=== PATIENT | female | born 1945 | race Caucasian/White ===

== ENCOUNTER 2017-08-04 06:45 | Inpatient (IN) ==
[2017-08-04] MEDS ORDERED: 0.9 % Sodium Chloride 1,000 ML IVC ONE (07:07)
--- NOTE | 2017-08-04 07:24 | Emergency Department Note ---
Disposition Clinical Impression: Paroxysmal a-fib, Chest pain, rule out acute myocardial infarction, Pneumonia Disposition: Admitted As Inpatient Condition: Good Arrhythmia/Palpitations HPI - General Chief Complaint: ED Arrhythmia/Palpitations Stated Complaint: irregular heart beat Time Seen by Provider: 08/04/17 07:07 Source: patient, family Mode of arrival: ambulatory Limitations: no limitations Nursing Notes Reviewed: Yes Vital Signs Reviewed: Yes - History of Present Illness HPI Narrative: Patient presents to the ED with the chief complaint of an irregular heart rate. Patient does have a history of paroxysmal atrial fibrillation. States that the last time she had it was several years ago when she was diagnosed with Graves' disease. States that she takes atenolol daily but has not been in A. fib for some time. She states that she felt fine yesterday but when she woke up this morning she could feel her heart beating funny. She states she does not really feel wants beating fast, but the discomfort in her chest is from the palpitations. She does describe a fullness in her chest but denies any pain per se. She denies any shortness of breath, headache, fever, chills, abdominal pain, vomiting or diarrhea. She does have some intermittent nausea as well as a nonproductive cough. Denies any numbness or tingling in her extremities. No trouble speaking or ataxia. - Related Data Home Medications Medication Instructions Recorded Confirmed Atenolol [Tenormin] 12.5 mg PO DAILY 08/04/17 08/04/17 Estrogens, Conjugated [Premarin 1 appl VG QWEEK 08/04/17 08/04/17 Cream] Famotidine [Heartburn Prevention] 20 mg PO HS 08/04/17 08/04/17 Folic Acid 1 mg PO DAILY 08/04/17 08/04/17 GlipiZIDE [Glipizide ER] 10 mg PO DAILY 08/04/17 08/04/17 Levothyroxine Sodium 150 mcg PO DAILY 08/04/17 08/04/17 [Levothyroxine Sodium] OxyCODONE Immed Rel [Roxicodone 5 5 mg PO QID PRN 08/04/17 08/04/17 MG] diazePAM [Valium] 5 mg PO BID 08/04/17 08/04/17 metFORMIN [Glucophage] 1,000 mg PO QAM 08/04/17 08/04/17 metFORMIN [Glucophage] 500 mg PO QPM 08/04/17 08/04/17 Allergies Allergy/AdvReac Type Severity Reaction Status Date / Time amitriptyline Allergy Seizure Verified 08/04/17 11:55 gluten Allergy See Verified 02/07/16 22:19 Comments Amoxicillin [From Amoxil] AdvReac Nausea Verified 08/04/17 11:55 All systems ED: reviewed and negative except as stated. Constitutional: Denies: fever Cardiovascular: Reports: as per HPI, palpitations Respiratory: Reports: cough Gastrointestinal: Reports: nausea. Denies: vomiting Past Medical History - Past Medical History Attestation: Yes The following information was validated with the patient. Source: patient Medical history: Reports: hypertension, thyroid disease, other Psychiatric history: Reports: anxiety - Social History Smoking Status: Never smoker Smokeless Tobacco Status: No Alcohol use: Reports: none Drug use: Reports: none Physical Exam - General Limitations: no limitations General appearance: alert, in no apparent distress, anxious - Head Head exam: atraumatic, normocephalic, normal inspection - Eye Eye exam: Present: normal appearance, PERRL, other (Exophthalmos) - ENT ENT exam: normal oropharynx, mucous membranes dry - Neck Neck exam: Present: normal inspection, full ROM, trachea midline - Chest Chest inspection: Present: normal inspection, symmetric chest wall rise - Respiratory Respiratory exam: Present: normal lung sounds bilaterally - Cardiovascular Cardiovascular exam: Present: tachycardia, irregular rhythm, other (Radial pulses symmetric and strong bilaterally, irregular) - Abdominal Exam Abdominal exam: Present: soft, Non-Tender. Absent: tenderness, distention, guarding, rebound, rigidity - Extremities Exam Extremities exam: Present: normal inspection, full ROM, normal capillary refill. Absent: tenderness, pedal edema - Neurological Exam Neurological exam: Present: alert, oriented X3 - Psychiatric Psychiatric exam: Present: normal affect, normal mood - Skin Skin exam: Present: warm, dry, intact, normal color Course Course Narrative: 72-year-old female presenting with A. fib with RVR. History of paroxysmal A. fib. Woke up with it this morning. No real chest pain but states she does feel some fullness. History of Graves' disease. We will check labs, TSH, T3, T4. Last echocardiogram was reviewed by myself and performed earlier this year with a good ejection fraction. We will go ahead and bolus of Cardizem and started drip. Patient will be admitted to the hospital. Vital Signs Temperature 98.1 F 08/04/17 06:46 Pulse Rate 111 08/04/17 06:46 Respiratory Rate 20 08/04/17 06:46 Blood Pressure 179/88 08/04/17 06:46 O2 Sat by Pulse Oximetry 95 08/04/17 06:46 Temperature 98.1 F 08/04/17 06:46 Pulse Rate 66 08/04/17 10:30 Respiratory Rate 18 08/04/17 12:03 Blood Pressure 119/78 08/04/17 12:03 O2 Sat by Pulse Oximetry 95 08/04/17 10:30 Oxygen Delivery Oxygen Delivery Nasal Cannula Arrhythmia/Palpitations - Medical Records Medical records reviewed: Yes I reviewed the patient's medical records. - Lab Data Lab results reviewed: Yes I reviewed the patient's lab results. Result diagrams: 08/04/17 07:11 08/04/17 07:11 Lab Results 08/04/17 08/04/17 08/04/17 Range/Units 07:11 07:11 07:11 WBC 6.0 (4.3-11.1) K/mcL RBC 4.37 (3.82-4.97) M/mcL Hgb 12.4 (11.5-15.4) g/dL Hct 38.5 (35.3-44.9) % MCV 88.1 (83.0-100.0) fL MCH 28.4 (28.0-33.3) pg MCHC 32.2 (31.6-35.5) g/dL RDW 14.1 (11.5-14.5) % Plt Count 191 (140-400) K/mcL MPV 10.9 (9.4-12.4) fL Immature Gran % 0.2 (0-4) % Seg Neutrophils % 56.9 % Lymphocytes % 32.4 % Monocytes % 6.8 % Eosinophils % 3.2 % Basophils % 0.5 % Neutrophils # 3.4 (1.6-8.9) K/mcL Lymphocytes # 1.9 (0.6-4.6) K/mcL Monocytes # 0.4 (0.0-1.3) K/mcL Eosinophils # 0.2 (0.0-0.6) K/mcL Basophils # 0.0 (0.0-0.2) K/mcL PT 10.5 (9.4-12.1) Seconds INR 1.0 APTT 38.6 H (26.0-36.0) Seconds Sodium 142 (136-145) mEq/L Potassium 4.1 (3.5-4.5) mEq/L Chloride 105 (98-109) mEq/L Carbon Dioxide 26 (19-29) mEq/L BUN 16 (7-20) mg/dL Creatinine 0.91 (0.57-1.11) mg/dL Est GFR ( Amer) > 60 (> 60) Est GFR (Non-Af Amer) > 60 (> 60) BUN/Creatinine Ratio 18 (6-26) Glucose 111 H (70-99) mg/dL Calculated Osmolality 296 (280-300) Calcium 9.8 (8.6-10.8) mg/dL Magnesium 2.1 (1.6-2.6) mg/dL Troponin I (0-0.03) ng/mL Urine Color (Yellow) Urine Clarity (Clear) Urine pH (5.0-8.0) pH Units Ur Specific Fenton (1.010-1.025) Urine Protein (Neg-Trace) mg/dL Urine Glucose (UA) (Normal) mg/dL Urine Ketones (Negative) mg/dL Urine Blood (Negative) Urine Nitrite (Negative) Urine Bilirubin (Negative) Urine Urobilinogen (Normal) mg/dL Ur Leukocyte Esterase (Negative) Ur Culture Indicated? (NO) 08/04/17 08/04/17 Range/Units 07:11 09:27 WBC (4.3-11.1) K/mcL RBC (3.82-4.97) M/mcL Hgb (11.5-15.4) g/dL Hct (35.3-44.9) % MCV (83.0-100.0) fL MCH (28.0-33.3) pg MCHC (31.6-35.5) g/dL RDW (11.5-14.5) % Plt Count (140-400) K/mcL MPV (9.4-12.4) fL Immature Gran % (0-4) % Seg Neutrophils % % Lymphocytes % % Monocytes % % Eosinophils % % Basophils % % Neutrophils # (1.6-8.9) K/mcL Lymphocytes # (0.6-4.6) K/mcL Monocytes # (0.0-1.3) K/mcL Eosinophils # (0.0-0.6) K/mcL Basophils # (0.0-0.2) K/mcL PT (9.4-12.1) Seconds INR APTT (26.0-36.0) Seconds Sodium (136-145) mEq/L Potassium (3.5-4.5) mEq/L Chloride (98-109) mEq/L Carbon Dioxide (19-29) mEq/L BUN (7-20) mg/dL Creatinine (0.57-1.11) mg/dL Est GFR ( Amer) (> 60) Est GFR (Non-Af Amer) (> 60) BUN/Creatinine Ratio (6-26) Glucose (70-99) mg/dL Calculated Osmolality (280-300) Calcium (8.6-10.8) mg/dL Magnesium (1.6-2.6) mg/dL Troponin I 0.03 (0-0.03) ng/mL Urine Color Yellow (Yellow) Urine Clarity Clear (Clear) Urine pH 7.0 (5.0-8.0) pH Units Ur Specific Fenton 1.007 L (1.010-1.025) Urine Protein Negative (Neg-Trace) mg/dL Urine Glucose (UA) Normal (Normal) mg/dL Urine Ketones Negative (Negative) mg/dL Urine Blood Negative (Negative) Urine Nitrite Negative (Negative) Urine Bilirubin Negative (Negative) Urine Urobilinogen Normal (Normal) mg/dL Ur Leukocyte Esterase Negative (Negative) Ur Culture Indicated? NO (NO) - Radiology Data Radiology results reviewed: Yes I reviewed the patient's radiology results. - EKG Data EKG attestation: Yes I reviewed and interpreted this EKG. EKG results narrative: A. fib with RVR, rate 120, QRS 114, QTC 384, left axis deviation, left anterior fascicular block with LVH Repeat EKG shows sinus rhythm with sinus arrhythmia, rate 76, LA interval 180, QRS 114, QTC 417, left axis deviation, left anterior fascicular block with LVH, no acute ischemic changes from previous, other than conversion to sinus rhythm Attestation Statement - Attestation Attestation: I, Romeo Kaur, examined this patient and my medical decision-making was reviewed with the [employer]/PA/Advanced Practice Nurse/Resident Physician. I agree with the documented findings, disposition and treatment plan as described except to the extent set forth below. 72-year-old female presents emergency Department with concerns of palpitations and chest discomfort. Patient states she had a nonproductive cough for the past few days but was otherwise feeling well last night prior to going to bed. This morning she woke with a feeling of palpitations, rapid heart rate and some chest pressure in the center of her chest that did not radiate. Patient denies associated diaphoresis, vomiting. No recent trauma. No recent changes in her medications. She does have a history of Graves' disease and now takes levothyroxine. Her initial evaluation the patient was started on diltiazem and spontaneously converted to a normal sinus rhythm. Chest pain resolved. Chest x -ray shows possible infiltrate in the left lower and middle lungs. Initial troponin negative. Patient feels comfortable to be admitted to the hospital for further care and evaluation of her acute onset chest pain and paroxysmal atrial fibrillation.
[2017-08-04 07:29] LABS: Basophils % 0.5 %; Eosinophils # 0.2 K/mcL (0.0-0.6); Eosinophils % 3.2 %; Hematocrit 38.5 % (35.3-44.9); Hemoglobin 12.4 g/dL (11.5-15.4); Immature Granulocytes % 0.2 % (0-4); Lymphocytes # 1.9 K/mcL (0.6-4.6); Lymphocytes % 32.4 %; Mean Corpuscular HGB Conc 32.2 g/dL (31.6-35.5); Mean Corpuscular Hemoglobin 28.4 pg (28.0-33.3); Mean Corpuscular Volume 88.1 fL (83.0-100.0); Mean Platelet Volume 10.9 fL (9.4-12.4); Monocytes # 0.4 K/mcL (0.0-1.3); Monocytes % 6.8 %; Neutrophils # 3.4 K/mcL (1.6-8.9); Platelet Count 191 K/mcL (140-400); Prothrombin Time 10.5 Seconds (9.4-12.1); Red Blood Count 4.37 M/mcL (3.82-4.97); Red Cell Distribution Width 14.1 % (11.5-14.5); Segmented Neutrophils % 56.9 %
[2017-08-04 07:32] LABS: Activated Partial Thrombo Time 38.6 Seconds (26.0-36.0)
[2017-08-04 09:38] LABS: Bilirubin,Urine Negative (Negative); Blood,Urine Negative (Negative); Clarity,Urine Clear (Clear); Color,Urine Yellow (Yellow); Glucose,Urine (UA) Normal (Normal); Ketones,Urine Negative (Negative); Leukocyte Esterase,Urine Negative (Negative); Nitrite,Urine Negative (Negative); Protein,Urine Negative (Neg-Trace); Specific Gravity,Urine 1.007 (1.010-1.025); Urobilinogen,Urine Normal (Normal)
[2017-08-04] MEDS ORDERED: Azithromycin 500 MG in D5% in Water 250 ML IVPB ONE (10:41)
[2017-08-04 11:03] LABS: BUN/Creatinine Ratio 18 (6-26); Blood Urea Nitrogen 16 mg/dL (7-20); Calcium 9.8 mg/dL (8.6-10.8); Carbon Dioxide 26 mEq/L (19-29); Chloride 105 mEq/L (98-109); Glucose 111 mg/dL (70-99); Magnesium 2.1 mg/dL (1.6-2.6); Osmolality,Calculated 296 (280-300); Potassium 4.1 mEq/L (3.5-4.5); Sodium 142 mEq/L (136-145); eGFR For African Americans > 60 (> 60); eGFR For Non-African Americans > 60 (> 60)
[2017-08-04] MEDS ORDERED: Acetaminophen 325 MG TABLET PO PRN (12:42)
[2017-08-04] MEDS ORDERED: Naloxone 0.4 MG/ML INJ IVP PRN (12:42)
[2017-08-04] MEDS ORDERED: *HR* OxyCODONE Immed Rel 5 MG TABLET PO PRN (12:44)
[2017-08-04 13:50] LABS: Thyroid Stimulating Hormone 1.769 mcIU/mL (0.350-4.840); Triiodothyronine (T3) Free 2.04 pg/mL (1.71-3.71)
[2017-08-04] MEDS ORDERED: D5% in Water 1,000 ML IVC PRN (13:55)
[2017-08-04] MEDS ORDERED: Dextrose Gel 15 GM PO PRN ×2 (13:55)
[2017-08-04] MEDS ORDERED: *HR* Dextrose 50 % in Water (Syg) 50 ML SYRINGE IVP PRN (13:55)
--- NOTE | 2017-08-04 15:03 | Internal Med History&Physical ---
<Axel Barcenas R - Last Filed: 08/04/17 16:23> Date of Encounter: 08/04/17 Internal Medicine - H&P: HPI History of present illness: Ms. Espinosa is a 72 year old female Internal Medicine - H&P: Meds Atenolol [Tenormin] 12.5 mg PO DAILY 08/04/17 [History] Estrogens, Conjugated [Premarin Cream] 1 appl VG QWEEK 08/04/17 [History] Famotidine [Heartburn Prevention] 20 mg PO HS 08/04/17 [History] Folic Acid 1 mg PO DAILY 08/04/17 [History] GlipiZIDE [Glipizide ER] 10 mg PO DAILY 08/04/17 [History] Levothyroxine Sodium [Levothyroxine Sodium] 150 mcg PO DAILY 08/04/17 [History] OxyCODONE Immed Rel [Roxicodone 5 MG] 5 mg PO QID PRN 08/04/17 [History] diazePAM [Valium] 5 mg PO BID 08/04/17 [History] metFORMIN [Glucophage] 1,000 mg PO QAM 08/04/17 [History] metFORMIN [Glucophage] 500 mg PO QPM 08/04/17 [History] 3 Allergy/AdvReac Type Severity Reaction Status Date / Time amitriptyline Allergy Seizure Verified 08/04/17 11:55 gluten Allergy See Verified 02/07/16 22:19 Comments Amoxicillin [From Amoxil] AdvReac Nausea Verified 08/04/17 11:55 All Systems PM: A 10-system review of systems was performed and is negative for pertinent findings except as documented above in the HPI. - Constitutional Vitals: Temp Pulse Resp BP Pulse Ox 98.6 F 65 16 136/76 95 08/04/17 15:55 08/04/17 15:55 08/04/17 15:55 08/04/17 15:55 08/04/17 15:55 Internal Med - H&P Results - Labs CBC & Chem 7: 08/04/17 07:11 08/04/17 07:11 - Attending Attestation I persnally interviewed and examined this pt. I discussed the case with ABBEY Hurt and agree with her findings, assessment and plan.. Concern for CAP. Prior to ordering a stress test, would appreciate cardiology input. Pt has Afib (PA Fib) and should be on anticoagulation, will further discuss this with pt. <Linda Hurt - Last Filed: 08/05/17 01:06> Date of Encounter: 08/05/17 Time of Encounter: 13:00 Assessment and Plan (1) Atrial fibrillation with RVR Current visit: Yes Status: Acute Patient presented with A. fib RVR rate of 140. She was given 1 dose of Cardizem IV which did flip her back to sinus rhythm. It appears patient does have some pneumonia which may have triggered A. fib. She does have a history of Graves' disease TSH was within range. We will continue with atenolol for now 2 we will consult cardiology 3 cardiac monitoring 4 patient is not an anticoagulation did give her aspirin which we will continue charts ask is 4 due to age female gender history of hypertension and diabetes this will need to be addressed per day team (2) Chest pain, rule out acute myocardial infarction Current visit: Yes Status: Acute 1 patient has an onset of chest discomfort today she was found to be in A. fib RVR and suspect this was related to her chest pain. We will continue to trend her troponins first troponin was 0. Continuous cardiac monitoring We will continue with aspirin and beta hailey will check lipid profile She had a recent stress test which was negative for ischemia We will consult cardiology (3) Pneumonia Current visit: Yes Status: Acute Patient has been experiencing nonproductive cough and she has had a sick exposure. No leukocytosis chest x-ray indicative of pneumonia. We will continue with Rocephin and azithromycin blood cultures have been obtained Bronchodilators as needed Mucinex Qualifiers: Pneumonia type: due to unspecified organism Laterality: bilateral Lung location: unspecified part of lung Qualified Code(s): J18.9 - Pneumonia, unspecified organism (4) Diabetes mellitus Current visit: No Status: Chronic We will hold metformin for now Accu-Cheks before meals at bedtime with sliding scale insulin Diabetic diet Qualifiers: Diabetes mellitus type: type 2 Diabetes mellitus complication status: without complication Diabetes mellitus terminologist insulin use: without residential use Qualified Code(s): E11.9 - Type 2 diabetes mellitus without complications (5) Hypertension Current visit: No Status: Chronic Presently controlled we will continue with atenolol 2 low sodium diet Qualifiers: Hypertension type: essential hypertension Qualified Code(s): I10 - Essential (primary) hypertension (6) Graves disease Current visit: Yes Status: Acute 1 presently TSH is within normal range we will continue with her Synthroid (7) DVT prophylaxis Current visit: Yes Status: Acute Lovenox subcutaneous Internal Medicine - H&P: HPI Chief complaint: CP Admitted From: Emergency Dept Plans for Post Hospital Care: Home History of present illness: Ms. Espinosa is a 72 year old female past medical history of diabetes celiac disease hypertension pernicious anemia anxiety depression Graves' disease paroxysmal atrial fibrillation. Patient explains she was diagnosed with Graves ' disease several years ago and had a thyroid storm as well as atrial fibrillation. She was placed on atenolol and has not had episode of atrial fibrillation for very long time. However today she is when she woke up she could feel that her heart was beating funny. She also felt like chest discomfort related to her palpitations however she was unable to describe the chest discomfort. She denies any shortness of breath or headache fevers chills.pain vomiting or diarrhea. She has been experiencing a nonproductive cough and she has had sick contacts. She presented to the ER with the above complaints according to ER records EKG revealed atrial fibrillation with RVR rate of 120s. She was given IV Cardizem was to convert her back to sinus rhythm. Lab work was obtained and troponin was 0.03. Urine was negative there was no leukocytosis chemistry was unremarkable. Chest x-ray with some opacifications mid and lower lungs bilaterally. She was given IV antibiotics and was admitted for further workup and evaluation. Presently patient denies any chest discomfort. She does not appear to be in respiratory distress. She does have some crackles in her bases bilaterally heart sounds are regular S1 and S2 with no rubs clicks gallops murmurs noted abdomen soft and nontender there is no pedal edema she has sinus rhythm on the monitor at this time. I reviewed his case with Dr. Barcenas who agrees with plan. Past Med Surg Social Fam HX - Past Medical History Medical history: diabetes, fibromyalgia, hypertension, thyroid disease, other Psychiatric history: anxiety - Social History Smoking Status: Never smoker Smokeless Tobacco Status: No Alcohol use: none Drug use: none - Family History Father Living Status: Age at : 75 Cause of : Colon cancer Mother Living Status: Cause of : Ovarian and colon cancer All Systems PM: A 10-system review of systems was performed and is negative for pertinent findings except as documented above in the HPI. - Constitutional Constitutional: no chills, no fever(s), no night sweats - EENT Eyes: no change in vision, no discharge, no pain, no photophobia Nose, mouth and throat: no dysphagia, no nasal discharge, no neck pain, no sore throat - Cardiovascular Cardiovascular ROS IM: chest pain, palpitations - Respiratory Respiratory: cough, no dyspnea, no wheezing, no excessive phlegm production - Gastrointestinal Gastrointestinal: no abdominal pain, no diarrhea, no hematemesis, no hematochezia, no melena, no nausea, no vomiting - Genitourinary Genitourinary: no change in urinary stream, no dysuria, no flank pain, no hematuria - Musculoskeletal Musculoskeletal ROS IM: no numbness, no tingling - Integumentary Integumentary IM: no rash, no unusual bruising - Neurological Neurological ROS: no confusion, no convulsions, no focal weakness, no numbness, no tingling, no tremor(s) - Hematologic/Lymphatic Hematologic/Lymphatic: no easy bruising - Constitutional Vitals: Temp Pulse Resp BP Pulse Ox 97.9 F 68 17 128/75 90 08/04/17 14:18 08/04/17 14:18 08/04/17 14:18 08/04/17 14:18 08/04/17 14:18 General appearance: Present: A&O X 3, answers questions appropriately - Head Head exam: Present: atraumatic, normocephalic - Eye Eye exam: Present: PERRL, conjuntiva pink, sclera anicteric Pupils: Present: PERRL - Neck Neck exam general surgery: Present: supple, trachea midline. Absent: lymphadenopathy - Respiratory Respiratory exam: Present: CTAB, rales. Absent: accessory muscle use, rhonchi, wheezes - Cardiovascular Cardiovascular exam: Present: RRR, +S1, +S2. Absent: diastolic murmur, gallop, rubs, systolic murmur - GI/Abdominal GI/Abdominal exam: Present: normal bowel sounds, soft, no peritoneal signs. Absent: distended, tenderness - Extremities Exam Extremities exam: Present: warm, radial pulses palpable and symmetrical. Absent : calf tenderness, cyanotic, pedal edema - Neurological Exam Neurological exam: Present: CN II-XII intact, oriented X3, no focal deficits. Absent: pronater drift, facial droop, speech deficit - Skin Skin exam: Present: dry, intact Internal Med - H&P Results - Labs CBC & Chem 7: 08/04/17 07:11 08/04/17 07:11 Labs: Cardiac Enzymes 08/04/17 Range/Units 13:02 Troponin I 0.03 (0-0.03) ng/mL - EKG Data EKG shows normal: sinus rhythm - EKG Data Prior EKG available for review: yes When compared to previous EKG: there are significant changes EKG comments: 08/05/17 00:51 Patient was in atrial fibrillation with rapid ventricular response on presentation she is presently in sinus rhythm with no ST-T wave abnormalities noted - Diagnostic Studies Other Images Additional comments: Chest X-Ray 08/04/17 07:07 IMPRESSION: Question of minimal patchy opacification within the left mid and bilateral lower lung. D/ / Francisco J Blackwell MD / Francisco J Blackwell MD Interpreting Provider: Francisco J Blackwell MD
[2017-08-04] MEDS: Insulin LISPRO 300 UNITS/3 ML VIAL SQ SCH ×2 (17:07→22:03)
[2017-08-04] MEDS: Aspirin 325 MG TABLET PO SCH (17:08)
[2017-08-04] MEDS: Famotidine 20 MG TABLET PO SCH (22:02)
[2017-08-04] MEDS: diazePAM 5 MG TABLET PO SCH (22:03)
[2017-08-05] MEDS ORDERED: Albuterol 2.5 MG/3 ML NEBULIZER IH PRN (01:00)
[2017-08-05 01:49] LABS: Basophils % 0.5 %; Eosinophils # 0.2 K/mcL (0.0-0.6); Eosinophils % 3.5 %; Hematocrit 30.4 % (35.3-44.9); Immature Granulocytes % 0.2 % (0-4); Immature Platelets 3.1 % (1.1-6.1); Lymphocytes # 1.7 K/mcL (0.6-4.6); Lymphocytes % 27.3 %; Mean Corpuscular HGB Conc 31.3 g/dL (31.6-35.5); Mean Corpuscular Hemoglobin 27.6 pg (28.0-33.3); Mean Corpuscular Volume 88.4 fL (83.0-100.0); Mean Platelet Volume 10.4 fL (9.4-12.4); Monocytes # 0.5 K/mcL (0.0-1.3); Monocytes % 8.9 %; Neutrophils # 3.6 K/mcL (1.6-8.9); Platelet Count 168 K/mcL (140-400); Red Blood Count 3.44 M/mcL (3.82-4.97); Red Cell Distribution Width 14.2 % (11.5-14.5); Segmented Neutrophils % 59.6 %
[2017-08-05 01:50] LABS: Hemoglobin 9.5 g/dL (11.5-15.4)
[2017-08-05 02:02] LABS: BUN/Creatinine Ratio 18 (6-26); Blood Urea Nitrogen 16 mg/dL (7-20); Calcium 8.9 mg/dL (8.6-10.8); Carbon Dioxide 26 mEq/L (19-29); Chloride 106 mEq/L (98-109); Chol/HDL Ratio 4.5 (0-4.9); Cholesterol 163 mg/dL (< 200); Glucose 145 mg/dL (70-99); HDL Cholesterol 36 mg/dL (40-59); LDL Cholesterol,Calculated 94 mg/dL (0-99); Magnesium 1.6 mg/dL (1.6-2.6); Osmolality,Calculated 288 (280-300); Sodium 137 mEq/L (136-145); Triglycerides 166 mg/dL (< 150); eGFR For African Americans > 60 (> 60); eGFR For Non-African Americans > 60 (> 60)
[2017-08-05] MEDS ORDERED: *HR* Enoxaparin 40 MG/0.4 ML SYRINGE SQ SCH (06:00)
[2017-08-05] MEDS: Insulin LISPRO 300 UNITS/3 ML VIAL SQ SCH ×4 (07:48→22:00)
[2017-08-05] MEDS ORDERED: *HR* OxyCODONE Immed Rel 5 MG TABLET PO PRN (07:58)
[2017-08-05] MEDS: Folic Acid 1 MG TABLET PO SCH (08:18)
[2017-08-05] MEDS: Aspirin 325 MG TABLET PO SCH (08:18)
[2017-08-05] MEDS: diazePAM 5 MG TABLET PO SCH ×2 (08:18→20:33)
[2017-08-05] MEDS ORDERED: Azithromycin 500 MG in D5% in Water 250 ML IVPB SCH (09:00)
--- NOTE | 2017-08-05 09:26 | Internal Med Progress Note ---
<Linh Moser - Last Filed: 08/05/17 14:34> Date of Encounter: 08/05/17 Time of Encounter: 09:22 - Assessment and plan (1) Atrial fibrillation with RVR Current Visit: Yes Status: Acute Assessment and plan: Ms. Espinosa is a 72 year old female with PMHx of Graves with thyroid storm, DM, HTN , and parosxymal Afib. Hx of Graves s/p atenolol, no changes in medication. Endorses emotional stress overnight prior to episode This AM, no chest pain, no SOB, vitals WNL EKG ED: atrial fibrillation with RVR rate of 120, converted to NSR with IV Cardizem. Troponin neg x 2. Minimum [id number] score - 4 (Age, F, DM, Hx HTN) HAS-BLED Score: 3 (HTN, Age > 65, Meds use predisposing bleeding) Of note: Hgb drop (12.4 - 9.5) Plan: Cardio on consult, appreciate recs Continue On tele Echo w/ limited view pending D/c Lovenox Titrating aspirin down 325 mg to 81 mg On SCDs Fecal hemeoccult (2) Drop in hemoglobin Current Visit: Yes Status: Acute Assessment and plan: 08/04: Hgb :12.4 08/05 : Hgb 9.5 Plan: See above Will repeat H/H STAT Fecal Hemeoccult pending Relevant hx: No colonoscopy in ~10 years Enoxaparin held, Continue SCDs (3) Chest pain, rule out acute myocardial infarction Current Visit: Yes Status: Resolved Assessment and plan: Troponin neg x2 (4) Graves disease Current Visit: Yes Status: Acute Assessment and plan: Thyroid labs WNL Per cardio, increase atenolol to 25 mg PO daily (5) Paroxysmal a-fib Current Visit: Yes Status: Acute Assessment and plan: Hx of Afib 2/2 to thyrotoxicosis TSH, T3, T4 WNL Continue home meds (6) Pneumonia Current Visit: Yes Status: Acute Assessment and plan: Hx of nonproductive cough in ED When possible, will de-escalate abx No history of hospitalization or association w/ healthcare in last 30 days PLAN: Pneumococcal vaccine (PPSV23) prior to d/c, if vaccine hx requires Qualifiers: Pneumonia type: due to unspecified organism Laterality: bilateral Lung location: unspecified part of lung Qualified Code(s): J18.9 - Pneumonia, unspecified organism (7) Diabetes mellitus Current Visit: No Status: Chronic Assessment and plan: Continue management Qualifiers: Diabetes mellitus type: type 2 Diabetes mellitus complication status: without complication Diabetes mellitus long-term insulin use: unspecified terminal worker insulin use status Qualified Code(s): E11.9 - Type 2 diabetes mellitus without complications (8) Hypertension Current Visit: No Status: Chronic Assessment and plan: Continue home meds Qualifiers: Hypertension type: essential hypertension Qualified Code(s): I10 - Essential (primary) hypertension (9) ASVD (arteriosclerotic vascular disease) Current Visit: Yes Status: Acute Assessment and plan: 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, 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 [employer] Age=72, F, Race= , Labs: Cholesterol =163/ HDL =36/ LDL =94, SBP = 148 Personal HX: DM, HTN, NON-smoker, Not on statin, Not on aspirin 10-year ASCVD Risk = 41.6% Will consider high intensity statin, given DM and > 7.5% 10-year ASCVD risk (10) DVT prophylaxis Current Visit: Yes Status: Acute Assessment and plan: On SCDs Currently holding OAC pending H/H & f/u tests for evaluation of Hgb drop (11) Pain aggravated by activities of daily living Current Visit: Yes Status: Chronic Assessment and plan: Pt endorses chronic pain issues in knee Continue home meds and encourage conservative pain management to patient when possible - Subjective Interval history: No acute events overnight. Denies chest pain today, SOB. She states that uncomfortable sensation felt at time of presentation has subsided, although does endorse feel intermittent palpitation this morning. Eating well. Pt is DM, we discussed meal planning for blood glucose control - Constitutional Vitals: Temp Pulse Resp BP Pulse Ox 98.4 F 77 18 148/80 92 08/05/17 07:12 08/05/17 07:12 08/05/17 07:12 08/05/17 07:12 08/05/17 08:35 General appearance: Present: cooperative, A&O X 3, pleasant, no acute distress, answers questions appropriately - Head Head exam: Present: atraumatic, normocephalic - Respiratory Respiratory exam: Present: CTAB. Absent: accessory muscle use, rales, rhonchi, wheezes - Cardiovascular Cardiovascular exam: Present: irregular rhythm, +S1, +S2. Absent: tachycardia - GI/Abdominal GI/Abdominal exam: Present: normal bowel sounds, soft, no peritoneal signs. Absent: distended, tenderness - Expanded Lower Extremities Exam Lower Leg exam: Absent: erythema (tender on palpation on anterior mei (2/2 to chronic condition per pt)), tenderness Internal Medicine: Result - Labs CBC & Chem 7: 08/05/17 01:42 08/05/17 01:42 Labs: Short CBC 08/05/17 Range/Units 01:42 WBC 6.1 (4.3-11.1) K/mcL Hgb 9.5 L D (11.5-15.4) g/dL Hct 30.4 L (35.3-44.9) % Plt Count 168 (140-400) K/mcL Neutrophils # 3.6 (1.6-8.9) K/mcL BMP 08/05/17 01:42 Sodium 137 Potassium 4.0 Chloride 106 Carbon Dioxide 26 BUN 16 Creatinine 0.90 Glucose 145 H Calcium 8.9 Cardiac Enzymes 08/04/17 08/05/17 Range/Units 19:39 01:42 Troponin I 0.01 0.02 (0-0.03) ng/mL - ABG Interpretation ABG results: PT/INR, D-dimer PT 10.5 Seconds (9.4-12.1) 08/04/17 07:11 - Diagnostic Studies Other Images Additional comments: Chest X-Ray 08/04/17 07:07 IMPRESSION: Question of minimal patchy opacification within the left mid and bilateral lower lung. D/ / Francisco J Blackwell MD / Francisco J Blackwell MD Interpreting Provider: Francisco J Blackwell MD pending Consult Discharge Plan - Plan Referrals: Carlo sEnrique Sanchez Jr, MD [Primary Care Provider] - 08/12/17 12:00 pm (web request ) <Estrada Stevens P - Last Filed: 08/05/17 18:22> Date of Encounter: 08/05/17 - Constitutional Vitals: Temp Pulse Resp BP Pulse Ox 98.9 F 89 18 158/89 90 08/05/17 16:25 08/05/17 16:25 08/05/17 16:25 08/05/17 16:25 08/05/17 16:25 Internal Medicine: Result - Labs CBC & Chem 7: 08/05/17 14:44 08/05/17 01:42 Labs: Short CBC 08/05/17 08/05/17 Range/Units 01:42 14:44 WBC 6.1 (4.3-11.1) K/mcL Hgb 9.5 L D 10.9 L (11.5-15.4) g/dL Hct 30.4 L 33.9 L (35.3-44.9) % Plt Count 168 (140-400) K/mcL Neutrophils # 3.6 (1.6-8.9) K/mcL BMP 08/05/17 01:42 Sodium 137 Potassium 4.0 Chloride 106 Carbon Dioxide 26 BUN 16 Creatinine 0.90 Glucose 145 H Calcium 8.9 Cardiac Enzymes 08/04/17 08/05/17 Range/Units 19:39 01:42 Troponin I 0.01 0.02 (0-0.03) ng/mL - ABG Interpretation ABG results: PT/INR, D-dimer PT 10.5 Seconds (9.4-12.1) 08/04/17 07:11 - Attending Attestation I examined this patient and my medical decision-making was reviewed with the Resident Physician. I agree with the documented findings, disposition and treatment plan as described except to the extent set forth below. Admitted with atrial fibrillation with rapid ventricular rate. Etiology of rapid ventricular rate is likely acute loss of blood. Likely source gastrointestinal tract. Plan: Hold aspirin IV PPI every 12 hourly We will get opinion from gastroenterology for possible endoscopy.
--- NOTE | 2017-08-05 10:13 | Cardiology Consult Note ---
<Rachel Mendoza - Last Filed: 08/05/17 12:29> Date of Encounter: 08/05/17 Time of Encounter: 09:30 Assessment and Plan (1) Atrial fibrillation with RVR Current Visit: Yes Status: Acute -Cardiology consulted for atrial fibrillation with RVR and chest discomfort. -H/o afib reported by pt, but no documented diagnosis. -Pt currently in NSR with HR 92 at time of exam this morning, denies current chest discomfort and palpitations. Appears well. -Electrolytes WNL -Troponins negative x4 -TSH, T4, and T3 were WNL, making a thyroid derangement a less likely precipitant. -EKG: normal sinus rhythm with sinus arrhythmia, Lt axis deviation, Lt anterior fasicular block, no new ischemic changes -Echocardiogram done February 2017 showed LVEF 60-65% and stress echo January 2017 shows appropriate increase of LVEF with increased stress. -[id number] score of 4 (female, age, HTN, diabetes) puts her at "moderate- high" risk of stroke, therefore she's an anticoagulation candidate. This is complicated by acute drop in Hgb of 12.4 to 9.5 over one day. Recommend repeating Hgb and further work up to explain acute drop. If Hgb truly low, no anticoagulation for time being. If repeat Hgb is normal, start aspirin 81mg PO once daily. -HR and BP will tolerate an increased dose of atenolol to Atenolol 25mg PO daily. -Based on studies and lab results mentioned above, acute ischemic cause for afib is less likely. Pt's afib may be related to pneumonia or may have been precipitated by her acute Hgb drop. Discussion w patient/family: The assessment and plan as outlined above was discussed with the patient and/or family members who expressed understanding and agreement. All questions were answered. Thank you for involving us in the care of your patient. Please call with any questions. History of Present Illness Consult date: 08/05/17 Consult reason: atrial fibrillation with RVR Chief complaint: irregular heartbeat History of present illness: Ms. Espinosa is a 72 year old female with PMH of atrial fibrillation (reported by pt ), IDDM, HTN, hypothyroid, sleep apnea, and h/o Graves disease & thyroid storm. Presented to ED yesterday c/o irregular heartbeat and chest discomfort described as "fullness" and was found to be in afib with RVR. Event occurred yesterday morning when getting out of bed, says she woke up "aware something wasn't right" and felt irregular heartbeat. She denies sensation of heart racing , chest pain, no arm/neck/jaw pain, diaphoresis, nausea, vomiting, lightheadedness at time of event. Rhythm converted to sinus after she bolus and drip of cardizem. Admitted for IV antibiotic treatment of suspected CAP and for further workup of acute onset chest discomfort. Pt is on atenolol and doesn' t take anticoagulation agent for her afib. Chest xray shows questionable patchy opacifications Lt mid and b/l lower lobes. Past Med Surg Social Fam HX - Past Medical History Medical history: diabetes, fibromyalgia, hypertension, thyroid disease, other Psychiatric history: anxiety - Social History Smoking Status: Never smoker Smokeless Tobacco Status: No Alcohol use: none Drug use: none - Family History Father Living Status: Age at : 75 Cause of : Colon cancer Mother Living Status: Cause of : Ovarian and colon cancer Medications and Allergies Atenolol [Tenormin] 12.5 mg PO DAILY 08/04/17 [History] Estrogens, Conjugated [Premarin Cream] 1 appl VG QWEEK 08/04/17 [History] Famotidine [Heartburn Prevention] 20 mg PO HS 08/04/17 [History] Folic Acid 1 mg PO DAILY 08/04/17 [History] GlipiZIDE [Glipizide ER] 10 mg PO DAILY 08/04/17 [History] Levothyroxine Sodium [Levothyroxine Sodium] 150 mcg PO DAILY 08/04/17 [History] OxyCODONE Immed Rel [Roxicodone 5 MG] 5 mg PO QID PRN 08/04/17 [History] diazePAM [Valium] 5 mg PO BID 08/04/17 [History] metFORMIN [Glucophage] 1,000 mg PO QAM 08/04/17 [History] metFORMIN [Glucophage] 500 mg PO QPM 08/04/17 [History] 3 Allergy/AdvReac Type Severity Reaction Status Date / Time amitriptyline Allergy Seizure Verified 08/04/17 11:55 gluten Allergy See Verified 02/07/16 22:19 Comments Amoxicillin [From Amoxil] AdvReac Nausea Verified 08/04/17 11:55 All Systems Review: A 10-system review of systems was performed and is negative for pertinent findings except as documented above in the HPI. - Cardiovascular Cardiovascular: as per HPI, palpitations, rapid heart rate, no chest pain at rest, no chest pain with exertion, no diaphoresis, no radiating jaw, neck or arm pain, no lightheadedness - Respiratory Respiratory: cough (non productive) - Gastrointestinal Gastrointestinal: no nausea - Neurological Neurological: no dizziness Physical Examination Vital Signs, Last 4 Hours Temp Pulse Resp BP Pulse Ox 08/05/17 08:35 92 08/05/17 07:12 98.4 F 77 18 148/80 92 General: Conversant, No Apparent Distress HEENT: Atraumatic, Mucus Membranes Moist Cardiac: Reg Rate and Rhythm, Normal S1 and S2, No Murmur Lungs: Normal Breath Sounds, No Wheeze, Rales, Rhonchi, Other (normal respiratory effort) Neuro: Alert and responsive, No focal deficits noted Skin: No rashes noted on visualized skin Musculoskeletal: No Chest Wall Tenderness Extremities: No Clubbing, No Cyanosis, No Edema, Normal Pulses (dorsalis pedis and posterior tibialis pulses equal, palpable b/l) Results 08/05/17 01:42 08/05/17 01:42 Lab Results 08/04/17 08/05/17 08/05/17 19:39 01:42 01:42 WBC 6.1 Hgb 9.5 L D Hct 30.4 L Plt Count 168 Sodium Potassium Chloride Carbon Dioxide BUN Creatinine Glucose Calcium Magnesium Troponin I 0.01 0.02 08/05/17 01:42 WBC Hgb Hct Plt Count Sodium 137 Potassium 4.0 Chloride 106 Carbon Dioxide 26 BUN 16 Creatinine 0.90 Glucose 145 H Calcium 8.9 Magnesium 1.6 Troponin I - Imaging and Cardiology Chest Xray: report reviewed Consult Discharge Plan - Plan Referrals: Carlos Enrique Sanchez Jr, MD [Primary Care Provider] - 08/12/17 12:00 pm (web request ) <Kaylyn Sarmiento - Last Filed: 08/05/17 12:57> Date of Encounter: 08/05/17 Assessment and Plan Discussion w patient/family: The assessment and plan as outlined above was discussed with the patient and/or family members who expressed understanding and agreement. All questions were answered. Thank you for involving us in the care of your patient. Please call with any questions. History of Present Illness History of present illness: Ms. Espinosa is a 72 year old female All Systems Review: A 10-system review of systems was performed and is negative for pertinent findings except as documented above in the HPI. Physical Examination Vital Signs, Last 4 Hours Temp Pulse Resp BP Pulse Ox 08/05/17 11:07 97.9 F 78 18 149/79 97 Results 08/05/17 01:42 08/05/17 01:42 Lab Results 08/04/17 08/05/17 08/05/17 19:39 01:42 01:42 WBC 6.1 Hgb 9.5 L D Hct 30.4 L Plt Count 168 Sodium Potassium Chloride Carbon Dioxide BUN Creatinine Glucose Calcium Magnesium Troponin I 0.01 0.02 08/05/17 01:42 WBC Hgb Hct Plt Count Sodium 137 Potassium 4.0 Chloride 106 Carbon Dioxide 26 BUN 16 Creatinine 0.90 Glucose 145 H Calcium 8.9 Magnesium 1.6 Troponin I - Attending Attestation I examined this patient and my medical decision-making was reviewed with the Resident Physician. I agree with the documented findings, disposition and treatment plan as described except to the extent set forth below. IMPRESSION: Ms. Espinosa presented with AFIB RVR associated with chest pressure and some pleuritic chest pain, probably precipitated by possible pneumonia. However, Hgb dropped from 12.4 to 9.5 over one day. Primary team is working up patient for GIB. TSH, electrolytes unremarkable. Had a detailed conversation with the patient and her family member. She thinks she was told she had AFIB several years ago and maybe even was offered an ablation but she is not sure of the details. She does deny having an ablation. We discussed treatment options. PLAN: 1. Workup for GIB per primary team given acute drop in Hgb 2. ASA 81 mg daily for now; can consider full anticoagulation (CHADSVASC 4) as an outpatient (with input from Hematology given history of pernicious anemia). 3. Recommend increasing atenolol to a full tablet but patient is hesitant to do so but has agreed to 12.5mg BID; continue telemetry 4. Consider limited echo for re-evaluation of LV function 5. Consider outpatient sleep evaluation to rule out MAIRA; per patient, desaturates at nighttime
[2017-08-05 14:54] LABS: Hematocrit 33.9 % (35.3-44.9); Hemoglobin 10.9 g/dL (11.5-15.4)
[2017-08-05] MEDS: Famotidine 20 MG TABLET PO SCH (20:34)
--- NOTE | 2017-08-06 05:49 | Electrocardiograph Report ---
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
[2017-08-06] MEDS ORDERED: Pantoprazole 40 MG VIAL IVP SCH (06:00)
[2017-08-06 07:24] LABS: Basophils % 0.6 %; Eosinophils # 0.2 K/mcL (0.0-0.6); Eosinophils % 3.4 %; Hematocrit 32.3 % (35.3-44.9); Immature Granulocytes % 0.3 % (0-4); Lymphocytes # 1.6 K/mcL (0.6-4.6); Lymphocytes % 23.7 %; Mean Corpuscular Hemoglobin 27.2 pg (28.0-33.3); Mean Corpuscular Volume 87.8 fL (83.0-100.0); Monocytes # 0.5 K/mcL (0.0-1.3); Monocytes % 7.9 %; Neutrophils # 4.4 K/mcL (1.6-8.9); Platelet Count 163 K/mcL (140-400); Red Blood Count 3.68 M/mcL (3.82-4.97); Segmented Neutrophils % 64.1 %
[2017-08-06 07:35] LABS: BUN/Creatinine Ratio 20 (6-26); Blood Urea Nitrogen 18 mg/dL (7-20); Calcium 8.6 mg/dL (8.6-10.8); Carbon Dioxide 24 mEq/L (19-29); Chloride 106 mEq/L (98-109); Glucose 134 mg/dL (70-99); Osmolality,Calculated 292 (280-300); Sodium 139 mEq/L (136-145); eGFR For African Americans > 60 (> 60); eGFR For Non-African Americans > 60 (> 60)
--- NOTE | 2017-08-06 08:51 | Cardiology Progress Note ---
<Rachel Mendoza - Last Filed: 08/06/17 11:46> Date of Encounter: 08/06/17 Time of Encounter: 09:35 Assessment and Plan (1) Atrial fibrillation with RVR Current Visit: Yes Status: Acute -Limited echocardiogram done 08/05/17: -Normal LV systolic function with LVEF 55%, mild asymmetric LV basal septal hypertrophy, normal RV size and function, moderately dilated left atrium, atypical septal motion consistent with BBB. -Electrolytes WNL and Hgb/Hct of 10/32.3 today. Recommendations: -Continue ASA 81mg PO daily. -Continue Atenolol dosing as 12.5mg PO BID per pt's request. -Follow up with cardiology as outpatient in 4 weeks (after she's been seen by GI ) to discuss plan for full anticoagulation, which is recommended due to her CHADS-VASc score of 4. Discussion w patient/family: The assessment and plan as outlined above was discussed with the patient and/or family members who expressed understanding and agreement. All questions were answered. Thank you for involving us in the care of your patient. Please call with any questions. Subjective Principal diagnosis: atrial fibrillation with RVR Interval history: Pt seen and examined this morning. Heart rate on telemetry was 72-84 bpm, regular rhythm. No events overnight. Pt states she feels fine, is more relaxed, and slept well last night. She denies chest pain or "fullness". She admits to " a few missed beats," however she wasn't greatly concerned about this. She denies the additional associated symptoms: fever/chills, cough, dyspnea, pleuritic pain, nausea/vomiting, abdominal pain, lower extremity swelling. Objective Vital Signs, Last 4 Hours Temp Pulse Resp BP Pulse Ox 08/06/17 06:49 98.2 F 73 15 148/85 92 08/06/17 05:01 98.2 F 67 17 123/77 94 General: Conversant, No Apparent Distress HEENT: Mucus Membranes Moist Cardiac: Reg Rate and Rhythm, Normal S1 and S2, No Murmur Lungs: Normal Breath Sounds, No Wheeze, Rales, Rhonchi, Other (no cough) Neuro: Alert and responsive, No focal deficits noted Extremities: No Clubbing, No Cyanosis, No Edema, Normal Pulses (DP and PT pulses palpable b/l) Results 08/06/17 06:35 08/06/17 06:35 Lab Results 08/05/17 08/06/17 08/06/17 14:44 06:35 06:35 WBC 6.8 Hgb 10.9 L 10.0 L Hct 33.9 L 32.3 L Plt Count 163 Sodium 139 Potassium 4.0 Chloride 106 Carbon Dioxide 24 BUN 18 Creatinine 0.90 Glucose 134 H Calcium 8.6 - Imaging and Cardiology Echo: report reviewed (08/05/17 echo shows reduced LVEF when compared to February 2017 echo) Consult Discharge Plan - Plan Additional Instructions: -Please follow up with your primary care provider Dr. Alvarez. We recommend the pneumococcal vaccine, if appropriate with your vaccine history as an outpatient. Please discuss this with your primary care provider -Please follow up with Dr. Sarmiento within three days as an outpatient to discuss your heart condition and need for anticoagulation. -Please follow up with the Gastroenterology service for your colonoscopy -Please continue to take atenolol 12.5 mg PO twice a day, as recommended by Dr. Sarmienot -Please continue your aspirin 81 mg PO daily , as recommended by Dr. Hutchinson -Please continue to take azithromycin 500 mg PO for the next 5 days -Please return promptly to the emergency room in case of new acute chest pain, palpitations, shortness of breath or new acute onset of symptoms. Referrals: Carlos Enrique Sanchez Jr, MD [Primary Care Provider] - 08/12/17 12:00 pm (web request ) Prescriptions: Aspirin Enteric Coated [Aspirin EC] 81 mg PO DAILY #30 Atenolol [Tenormin] 12.5 mg PO BID #60 tab Azithromycin [Zithromax] 500 mg PO Q24H #5 tab <Kaylyn Sarmiento - Last Filed: 08/06/17 12:18> Date of Encounter: 08/06/17 Assessment and Plan Discussion w patient/family: I examined this patient and my medical decision-making was reviewed with the Resident Physician. I agree with the documented findings, disposition and treatment plan. Ms. Espinosa is feeling in her usual state of health today without new complaints. She admits to a few "missed beats" but nothing of concern to the patient. She had no concerning findings on telemetry overnight. At her request we will continue the dosing structure of atenolol at 12.5mg BID. Ideally, would recommend full anticoagulation (CHADSVASC 4) but she plans to have GI workup for drop in Hgb as an outpatient and possibly will be undergoing cholecystectomy. For now, she will remain on low dose aspirin. Recommend cardiology follow up as outpatient for further evaluation and management. We will sign off. Please call with questions. Objective Vital Signs, Last 4 Hours Temp Pulse Resp BP Pulse Ox 08/06/17 11:34 97.5 F L 74 18 165/93 90 Results 08/06/17 06:35 08/06/17 06:35 Lab Results 08/05/17 08/06/17 08/06/17 14:44 06:35 06:35 WBC 6.8 Hgb 10.9 L 10.0 L Hct 33.9 L 32.3 L Plt Count 163 Sodium 139 Potassium 4.0 Chloride 106 Carbon Dioxide 24 BUN 18 Creatinine 0.90 Glucose 134 H Calcium 8.6
[2017-08-06] MEDS ORDERED: Azithromycin 250 MG TABLET PO SCH (09:00)
[2017-08-06] MEDS ORDERED: Aspirin 81 MG TAB.CHEW PO SCH (09:00)
[2017-08-06] MEDS: diazePAM 5 MG TABLET PO SCH (09:55)
[2017-08-06] MEDS: Folic Acid 1 MG TABLET PO SCH (09:55)
[2017-08-06] MEDS: Insulin LISPRO 300 UNITS/3 ML VIAL SQ SCH ×2 (09:58→12:24)
--- NOTE | 2017-08-06 11:21 | Discharge Summary ---
<ShantiLinh - Last Filed: 08/06/17 17:04> Date of Encounter: 08/06/17 Time of Encounter: 11:15 - Discharge Diagnosis (1) Atrial fibrillation with RVR Priority: Primary Status: Acute (2) Drop in hemoglobin Priority: Primary Status: Resolved (3) Chest pain, rule out acute myocardial infarction Priority: Primary Status: Resolved (4) Graves disease Priority: Secondary Status: Chronic (5) Paroxysmal a-fib Priority: Primary Status: Acute (6) Pneumonia Priority: Primary Status: Acute Qualifiers: Pneumonia type: due to unspecified organism Laterality: bilateral Lung location: unspecified part of lung Qualified Code(s): J18.9 - Pneumonia, unspecified organism (7) Diabetes mellitus Priority: Secondary Status: Chronic Qualifiers: Diabetes mellitus type: type 2 Diabetes mellitus complication status: without complication Diabetes mellitus 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: unspecified 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 status Qualified Code(s): E11.9 - Type 2 diabetes mellitus without complications (8) Hypertension Priority: Secondary Status: Chronic Qualifiers: Hypertension type: essential hypertension Qualified Code(s): I10 - Essential (primary) hypertension (9) ASVD (arteriosclerotic vascular disease) Priority: Secondary Status: Chronic (10) DVT prophylaxis Priority: Secondary Status: Acute (11) Pain aggravated by activities of daily living Priority: Primary Status: Chronic - Discharge Medications Prescriptions: Aspirin Enteric Coated [Aspirin EC] 81 mg PO DAILY #30 Atenolol [Tenormin] 12.5 mg PO BID #60 tab Azithromycin [Zithromax] 500 mg PO Q24H #5 tab Home Medications: Estrogens, Conjugated [Premarin Cream] 1 appl VG QWEEK 08/04/17 [History] Famotidine [Heartburn Prevention] 20 mg PO HS 08/04/17 [History] Folic Acid 1 mg PO DAILY 08/04/17 [History] GlipiZIDE [Glipizide ER] 10 mg PO DAILY 08/04/17 [History] Levothyroxine Sodium 150 mcg PO DAILY 08/04/17 [History] OxyCODONE Immed Rel [Roxicodone 5 MG] 5 mg PO QID PRN 08/04/17 [History] diazePAM [Valium] 5 mg PO BID 08/04/17 [History] metFORMIN [Glucophage] 1,000 mg PO QAM 08/04/17 [History] metFORMIN [Glucophage] 500 mg PO QPM 08/04/17 [History] Aspirin Enteric Coated [Aspirin EC] 81 mg PO DAILY #30 08/06/17 [Rx] Atenolol [Tenormin] 12.5 mg PO BID #60 tab 08/06/17 [Rx] Azithromycin [Zithromax] 500 mg PO Q24H #5 tab 08/06/17 [Rx] Allergies/Adverse Reactions: 3 Allergy/AdvReac Type Severity Reaction Status Date / Time amitriptyline Allergy Seizure Verified 08/04/17 11:55 gluten Allergy See Verified 02/07/16 22:19 Comments Amoxicillin [From Amoxil] AdvReac Nausea Verified 08/04/17 11:55 Procedures/tests Complete & Pending: Procedures Performed prior 72 hours Category Date Time Status EV limited echocardiogram Routine Y 08/05/17 12:29 Completed Chest X-Ray 08/04/17 07:07 IMPRESSION: Question of minimal patchy opacification within the left mid and bilateral lower lung. D/ / Francisco J Blackwell MD / Francisco J Blackwell MD Interpreting Provider: Francisco J Blackwell MD Echocardiogram Limited Views 08/05/17 12:29 Impressions: Normal LV systolic function, LVEF 55%. Mild asymmetric LV basal septal hypertrophy. Normal right ventricular size and function. Moderately dilated left atrium. Valvular function was not assessed on this limited study. Left Ventricular Wall Motion: Rest Echo Findings All wall segments showed normal motion. Findings: Study Quality * Suboptimal due to some off axis views. ECG Findings * Normal sinus rhythm. Left Ventricle * Normal LV systolic function, LVEF 55%. * Normal LV chamber size. * Mild asymmetric LV basal septal hypertrophy. * Atypical septal motion consistent with bundle branch block. Right Ventricle * Normal right ventricular size and function. Left Atrium * Moderately dilated left atrium. Right Atrium * Normal right atrial size. Aorta * Normally sized aortic root. Pericardium * There is a trivial pericardial effusion present. IVC * Normal IVC dimensions and inspiratory collapse. Date of admission: 08/04/17 15:11 Primary care physician: Carlos Enrique Sanchez Jr, MD Consults: 08/05/17 00:38 Consult to Cardiology [CONS] Routine Comment: Consulting Provider: Cardiology Leticia Reason for Consult: CP Time Notified: 00:38 Call Completed: No Discharging clinician: Linh Moser Anticipated date of discharge: 08/06/17 - Patient Status Disposition: Home, Self-Care Condition: Good Functional capacity at discharge: uses cane/walker Overall status at discharge: patient is progressing back to baseline - Discharge Instructions Follow Up With: Carlos Enrique Sanchez Jr, MD [Primary Care Provider] - 08/12/17 12:00 pm (web request ) Additional Instructions: -Please follow up with your primary care provider Dr. Sanchez. We recommend the pneumococcal vaccine, if appropriate with your vaccine history as an outpatient. Please discuss this with your primary care provider -Please follow up with Dr. Sarmiento within three days as an outpatient to discuss your heart condition and need for anticoagulation. -Please follow up with the Gastroenterology service for your colonoscopy -Please continue to take atenolol 12.5 mg PO twice a day, as recommended by Dr. Sarmiento -Please continue your aspirin 81 mg PO daily , as recommended by Dr. Hutchinson -Please continue to take azithromycin 500 mg PO for the next 5 days -Please return promptly to the emergency room in case of new acute chest pain, palpitations, shortness of breath or new acute onset of symptoms. - Diet and Activity Activity: ambulate only with your walker, increase activity as tolerated Diet: diabetic diet, low salt diet Interval History: No acute events overnight. No SOB. Did not report unexplained bleeding overnight. No abdominal pain. Hospital course: Ms. Espinosa is a 72 year old female with a past medical history of Graves with thyroid storm, DM, HTN, and parosxymal Afib. Her history of Graves is s/p atenolol, and she had no changes in medication. She did endorse emotional stress overnight prior to episode. EKG in ED demonstrated atrial fibrillation with RVR rate of 120, which converted to NSR with IV Cardizem. The patient's troponin neg x 2. The patient's thyroid labs were within normal limits. The patient's CXR additionally demonstrated findings concerning for pneumonia, for which patient was treated with IV antibiotics and de-escalated to PO with clinical improvement. Evaluation of risk factors demonstrated a minimum [id number] score - 4 (Age, F, DM, Hx HTN) and HAS-BLED Score: 3 (HTN, Age > 65, Meds use predisposing bleeding) while inpatient. Cardiology was on consult and patient was continued on telemetry. Echo w/ limited view pending revealed normal LV systolic function with LVEF 55%, mild asymmetric LV basal septal hypertrophy, normal RV size and function, moderately dilated left atrium, atypical septal motion consistent with BBB. She exhibited an approximate 3 Hgb drop (12.4 - 9.5) and H/H were followed until Hgb and Hct markers were trended until stable. Given the risk of possible bleed, patient advised to continue ASA 81mg PO daily. She will follow up with cardiology as outpatient in 4 weeks ( after she's been seen by GI for colonoscopy for outpatient follow-up and patient 's follow-up per USPTF guidelines) The patient's atenolol was adjusted to 12.5 mg PO BID to discuss plan for full anticoagulation, which is recommended due to her CHADS-VASc score of 4. - Time Spent with Patient Total time spent providing and/or coordinating discharge services: - Constitutional Vitals: Temp Pulse Resp BP Pulse Ox 98.2 F 73 15 148/85 92 08/06/17 06:49 08/06/17 06:49 08/06/17 06:49 08/06/17 06:49 08/06/17 06:49 General appearance: Present: cooperative, A&O X 3, pleasant, no acute distress, answers questions appropriately - Head Head exam: Present: atraumatic, normocephalic - Respiratory Respiratory exam: Present: CTAB. Absent: accessory muscle use, rales, rhonchi, wheezes - Cardiovascular Cardiovascular exam: Present: +S1, +S2. Absent: diastolic murmur, gallop, rubs , systolic murmur - GI/Abdominal GI/Abdominal exam: Present: normal bowel sounds, soft, no peritoneal signs. Absent: distended, tenderness - Expanded Lower Extremities Exam Knee exam: Absent: ecchymosis, erythema, swelling, tenderness <Estrada Stevens P - Last Filed: 08/06/17 18:31> Date of Encounter: 08/06/17 Procedures/tests Complete & Pending: Procedures Performed prior 72 hours Category Date Time Status EV limited echocardiogram Routine Y 08/05/17 12:29 Completed Date of admission: 08/04/17 15:11 Primary care physician: Carlos Enrique Sanchez Jr, MD Consults: 08/05/17 00:38 Consult to Cardiology [CONS] Routine Comment: Consulting Provider: Cardiology Leticia Reason for Consult: CP Time Notified: 00:38 Call Completed: No Hospital course: Ms. Espinosa is a 72 year old female - Time Spent with Patient Total time spent providing and/or coordinating discharge services: - Constitutional Vitals: Temp Pulse Resp BP Pulse Ox 97.5 F L 74 18 165/93 90 08/06/17 11:34 08/06/17 11:34 08/06/17 11:34 08/06/17 11:34 08/06/17 11:34 - Attending Attestation I examined this patient and my medical decision-making was reviewed with the Resident Physician. I agree with the documented findings, disposition and treatment plan as described except to the extent set forth below.
[2017-08-06 11:38] VITALS: BP 165/93
[2017-08-06] MEDS ORDERED: Aspirin Enteric Coated 81 MG Tablet PO SCH (11:45)
[2017-08-06] MEDS ORDERED: FLUARIX QUAD 2017-18 36MOS UP/PF 0.5 ML SYRINGE IM ONE (13:31)
--- NOTE | 2017-08-07 14:05 | Electrocardiograph Report ---
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
== END 2017-08-06 14:17 | disposition home or self-care (01) | DRG 308 ==
LOC: 2ANU 06:45 → EMEROO 06:45 → 2ANU 12:35
PROVIDERS: ADMIT Internal Medicine; ATTEND Internal Medicine

== ENCOUNTER 2018-08-24 08:16 | Inpatient (IN) ==
--- NOTE | 2018-08-24 08:28 | Emergency Department Note ---
Disposition Clinical Impression: Unstable angina pectoris Chest pain Qualifiers: Chest pain type: unspecified Qualified Code(s): R07.9 - Chest pain, unspecified Disposition: Admitted As Inpatient Condition: Fair Referrals: Carlos Enrique Sanchez Jr, MD [Primary Care Provider] - Time of Disposition: 09:22 Chest Pain HPI - General Chief Complaint: ED Chest Pain Stated Complaint: CP Time Seen by Provider: 08/24/18 08:20 Source: patient, EMS Mode of arrival: EMS Limitations: no limitations Vital Signs Reviewed: Yes Nursing Notes Reviewed: Yes - History of Present Illness HPI Narrative: I have re-performed and reviewed the history documented by the medical student, and I confirm its accuracy except as noted below 73-year-old female history of CAD s/p stent in May 2018 presents emergency department via EMS for chest pain. 30 minutes prior to arrival patient reports waking up with left-sided chest pain with radiation down the left arm with associated shortness of breath. Denies diaphoresis nausea or vomiting. Feels similar to her prior heart attack back in May 3 months ago. She took a baby aspirin today and was given 3 additional aspirin by squad. She also took a total of 3 nitro prior to squad arrival with minimal relief. She normally takes aspirin Plavix and eloquence which is for her atrial fibrillation. Denies any G.I. bleed symptoms. Denies any recent illness. She does state yesterday she felt slightly more weak that she typically does as they went out to eat at [employer]. Denies any other complaints. Pt complaint: chest pain Severity scale (1-10): 6 - Related Data Home Medications Medication Instructions Recorded Confirmed Apixaban [Eliquis] 5 mg PO BID 06/02/18 08/24/18 Cyanocobalamin (B-12) [Vitamin B12] 1,000 mcg IM QMONTH 06/02/18 08/24/18 Famotidine [Pepcid] 40 mg PO HS PRN 06/02/18 08/24/18 FluocinoNIDE 0.05% CRM [Lidex] 1 appl TP TID 06/02/18 08/24/18 Folic Acid 1 mg PO DAILY 06/02/18 08/24/18 GlipiZIDE [Glipizide ER] 10 mg PO DAILY 06/02/18 08/24/18 Levothyroxine Sodium 150 mcg PO DAILY 06/02/18 08/24/18 Metoprolol Succinate 25 mg PO BID 06/02/18 08/24/18 Oxycodone HCl 5 mg PO Q6H PRN 06/02/18 08/24/18 Triamterene/HCTZ 37.5/25mg 1 tab PO DAILY 06/02/18 08/24/18 [Dyazide] diazePAM [Valium] 5 mg PO BID PRN 06/02/18 08/24/18 metFORMIN [Glucophage] 500 mg PO TID 06/02/18 08/24/18 Lisinopril [Lisinopril] 2.5 mg PO DAILY 08/24/18 08/24/18 Rosuvastatin Calcium [Rosuvastatin 5 mg PO DAILY 08/24/18 08/24/18 Calcium] Previous Rx's Medication Instructions Recorded Aspirin 162 mg PO BID #60 tab.chew 06/06/18 Clopidogrel [Plavix] 75 mg PO DAILY #30 tablet 06/06/18 Nitroglycerin 0.4 mg SL Q5MIN PRN #15 tab.subl 06/06/18 Allergies Allergy/AdvReac Type Severity Reaction Status Date / Time amitriptyline AdvReac Seizure Verified 06/02/18 06:47 Amoxicillin [From Amoxil] AdvReac Nausea Verified 06/02/18 06:47 gluten AdvReac Abdominal Verified 06/02/18 06:47 Pain All systems ED: reviewed and negative except as stated. Review of Systems: As Per HPI Constitutional: Reports: weakness. Denies: fever, chills ENT ED: Denies: congestion Cardiovascular: Reports: chest pain. Denies: palpitations, syncope Respiratory: Denies: cough, dyspnea Gastrointestinal: Denies: abdominal pain, nausea, vomiting Genitourinary: Denies: dysuria Musculoskeletal: Denies: back pain Integumentary: Denies: abrasion Neurological: Denies: headache Chest Pain PMH - Past Medical History Medical history: Reports: atrial fibrillation, cancer, diabetes, fibromyalgia, GERD, hypertension, thyroid disease, other Surgical history: Reports: hysterectomy Psychiatric history: Reports: anxiety, depression - Social History Smoking Status: Never smoker Alcohol use: Reports: none Drug use: Reports: none Physical Exam - General Limitations: no limitations General appearance: alert, in distress (Appears uncomfortable, wearing sunglasses and keeping eyes closed) - Head Head exam: atraumatic, normocephalic, normal inspection - Eye Eye exam: Present: normal appearance, PERRL, EOMI - ENT ENT exam: normal exam, normal oropharynx, mucous membranes moist - Neck Neck exam: Present: normal inspection, full ROM, trachea midline - Chest Chest inspection: Present: normal inspection, symmetric chest wall rise. Absent : tenderness - Respiratory Respiratory exam: Present: normal lung sounds bilaterally. Absent: respiratory distress, wheezes - Cardiovascular Cardiovascular exam: Present: regular rate, normal rhythm, normal heart sounds - Expanded Cardiovascular Exam Peripheral pulses: 2+: radial (R), radial (L) - Abdominal Exam Abdominal exam: Present: soft, Non-Tender, normal bowel sounds. Absent: tenderness, distention, guarding, rebound, rigidity - Extremities Exam Extremities exam: Present: normal inspection, full ROM, normal capillary refill. Absent: tenderness, pedal edema, calf tenderness - Neurological Exam Neurological exam: Present: alert, oriented X3 - Psychiatric Psychiatric exam: Present: normal affect, anxious - Skin Skin exam: Present: warm, dry, intact, normal color. Absent: rash, cyanosis, diaphoresis Course Course Narrative: Patient presents with chest pain for the past 30 minutes after awakening. Recent prior heart catheterization with stent placement. Concerning for DC. Her initial EKG shows some changes in wave morphology compared to her prior EKG as well as the stress test that was recently performed 2 weeks ago. Will repeat EKG and initiate nitroglycerin drip. Will speak to the interventional cardiologists regarding possible evolving myocardial infarction. - Consultations Consultation #1: The repeat EKG was performed approximately 12 minutes after initial with some isolated ST elevation in lead 3 as well as T-wave inversions in the lateral leads. We compared this to her post-cath EKG performed 06/02 as well as a recent stress tests on 08/13 which shows different wave morphology with concerns for evolving myocardial infarction. Spoke with the cooler worker Dr. Osei who agrees this does not meet STEMI but will look at cath report. Recent stress tests performed 08/13 was indeterminate as patient was unable to get to target level. Time: 08:47 Consultation #2: Spoke with the cardiologists who was performing a heart catheterization at that time it will review the patient's chart. Informed that troponin was less than 0.03. No evolving ST changes on repeat EKGs. Time: 09:24 Consultation #3: Review for labs unremarkable. She has some anemia that slightly lower at 9 today. She denies any G.I. bleed symptoms. I spoke with a defense travel administrator again who recommends catheterization likely tomorrow but would prefer to trend troponins. She is on Eliquis for atrial fibrillation and will hold. Will also hold heparin drip at this time. The defense travel administrator will evaluate the patient. The 4th EKG showed some improvement of the ST elevation in 3. Her pain has improved with that nitroglycerin drip. At this time patient will be admitted. Spoke with on-call hospitalist jeremy Harrell to admit for ACS/CP. No further orders at this time Time: 10:28 Vital Signs Temperature 97.9 F 08/24/18 08:20 Pulse Rate 69 08/24/18 08:20 Respiratory Rate 18 08/24/18 08:20 Blood Pressure 136/81 08/24/18 08:20 O2 Sat by Pulse Oximetry 97 08/24/18 08:20 Temperature 97.9 F 08/24/18 08:20 Pulse Rate 74 08/24/18 10:40 Respiratory Rate 18 08/24/18 09:56 Blood Pressure 132/71 08/24/18 10:40 O2 Sat by Pulse Oximetry 99 08/24/18 10:40 Oxygen Delivery Oxygen Delivery Nasal Cannula Chest Pain - MDM Narrative Medical decision making narrative: Patient was discussed with my attending physician who agrees with ED management and final disposition. They independently evaluated the patient. Please refer to their attestation to this encounter for additional information. This note was generated by [employer] voice recognition software and as a result grammatical or spelling errors may occur using this program. - Medical Records Medical records reviewed: Yes I reviewed the patient's medical records. - Lab Data Lab results reviewed: Yes I reviewed the patient's lab results. Result diagrams: 08/24/18 08:41 08/24/18 08:41 Lab Results 08/24/18 08/24/18 Range/Units 08:41 08:41 WBC 5.5 (4.3-11.1) K/mcL RBC 3.27 L (3.82-4.97) M/mcL Hgb 9.2 L (11.5-15.4) g/dL Hct 29.2 L (35.3-44.9) % MCV 89.3 (83.0-100.0) fL MCH 28.1 (28.0-33.3) pg MCHC 31.5 L (31.6-35.5) g/dL RDW 14.0 (11.5-14.5) % Plt Count 154 (140-400) K/mcL MPV 10.7 (9.4-12.4) fL Immature Gran % 0.4 (0-4) % Seg Neutrophils % 71.3 % Lymphocytes % 17.0 % Monocytes % 7.6 % Eosinophils % 3.3 % Basophils % 0.4 % Neutrophils # 4.0 (1.6-8.9) K/mcL Lymphocytes # 0.9 (0.6-4.6) K/mcL Monocytes # 0.4 (0.0-1.3) K/mcL Eosinophils # 0.2 (0.0-0.6) K/mcL Basophils # 0.0 (0.0-0.2) K/mcL Sodium 137 (136-145) mEq/L Potassium 3.9 (3.5-5.1) mEq/L Chloride 105 (98-107) mEq/L Carbon Dioxide 23 (23-29) mEq/L BUN 23 (8-23) mg/dL Creatinine 1.17 (0.60-1.20) mg/dL Est GFR ( Amer) 55 L (> 60) Est GFR (Non-Af Amer) 45 L (> 60) BUN/Creatinine Ratio 20 (6-26) Glucose 156 H (70-105) mg/dL Calculated Osmolality 291 (280-300) Calcium 9.0 (8.6-10.3) mg/dL Troponin I < 0.03 (< 0.04) ng/mL - Radiology Data Radiology results reviewed: Yes I reviewed the patient's radiology results. Chest X-Ray 08/24/18 08:20 IMPRESSION: 1. Mild perihilar vascular prominence without overt congestive heart failure D/ / 08/24/2018 09:08:23 Kandace Patel MD / stephy Interpreting Provider: Kandace Patel MD - EKG Data EKG attestation: Yes I reviewed and interpreted this EKG. EKG results narrative: EKG performed 821 normal sinus rhythm 68 beats per minute, isolated ST elevation seen in lead III, there is T-wave inversions in the lateral leads. Concerning for ischemic changes, does not meet STEMI. Compared to prior EKG performed 06/02 which shows that these findings are new this was performed after her catheterization. Repeat EKG performed 833 as well as 908 does not show any dynamic changes or increase in ST elevation Heart Score - Score History: Highly Suspicious EKG: Significant ST-Depression Age: Greater than 65 Risk Factors: Equal/Greater than 3 risk factor or history of atherosclerotic disease Troponin: Less than normal limit HEART Score Total: 8
[2018-08-24] MEDS ORDERED: *HR* FentaNYL (PF) 100 MCG/2 ML VIAL IVP ONE (08:29)
[2018-08-24] MEDS ORDERED: 0.9 % Sodium Chloride 1,000 ML IVC SCH (08:30)
--- NOTE | 2018-08-24 08:30 | Emergency Department Note ---
Disposition Clinical Impression: Unstable angina pectoris, Chest pain Disposition: Admitted As Inpatient Condition: Fair General Adult HPI - General Chief complaint: ED Chest Pain Stated complaint: CP Time Seen by Provider: 08/24/18 08:20 Source: EMS Limitations: no limitations - History of Present Illness Pain Scale: 6 - Related Data Home Medications Medication Instructions Recorded Confirmed Apixaban [Eliquis] 5 mg PO BID 06/02/18 08/24/18 Cyanocobalamin (B-12) [Vitamin B12] 1,000 mcg IM QMONTH 06/02/18 08/24/18 Famotidine [Pepcid] 40 mg PO HS PRN 06/02/18 08/24/18 FluocinoNIDE 0.05% CRM [Lidex] 1 appl TP TID 06/02/18 08/24/18 Folic Acid 1 mg PO DAILY 06/02/18 08/24/18 GlipiZIDE [Glipizide ER] 10 mg PO DAILY 06/02/18 08/24/18 Levothyroxine Sodium 150 mcg PO DAILY 06/02/18 08/24/18 Metoprolol Succinate 25 mg PO BID 06/02/18 08/24/18 Oxycodone HCl 5 mg PO Q6H PRN 06/02/18 08/24/18 Triamterene/HCTZ 37.5/25mg 1 tab PO DAILY 06/02/18 08/24/18 [Dyazide] diazePAM [Valium] 5 mg PO BID PRN 06/02/18 08/24/18 metFORMIN [Glucophage] 500 mg PO TID 06/02/18 08/24/18 Lisinopril [Lisinopril] 2.5 mg PO DAILY 08/24/18 08/24/18 Rosuvastatin Calcium [Rosuvastatin 5 mg PO DAILY 08/24/18 08/24/18 Calcium] Previous Rx's Medication Instructions Recorded Aspirin 162 mg PO BID #60 tab.chew 06/06/18 Clopidogrel [Plavix] 75 mg PO DAILY #30 tablet 06/06/18 Nitroglycerin 0.4 mg SL Q5MIN PRN #15 tab.subl 06/06/18 Allergies Allergy/AdvReac Type Severity Reaction Status Date / Time amitriptyline AdvReac Seizure Verified 06/02/18 06:47 Amoxicillin [From Amoxil] AdvReac Nausea Verified 06/02/18 06:47 gluten AdvReac Abdominal Verified 06/02/18 06:47 Pain Past Medical History - Past Medical History Medical history: Reports: atrial fibrillation, cancer, diabetes, fibromyalgia, GERD, hypertension, thyroid disease, other Surgical history: Reports: hysterectomy Psychiatric history: Reports: anxiety, depression - Social History Smoking Status: Never smoker Smokeless Tobacco Status: No Alcohol use: Reports: none Drug use: Reports: none Physical Exam - General Limitations: no limitations General appearance: alert, in no apparent distress Course Vital Signs Temperature 97.9 F 08/24/18 08:20 Pulse Rate 69 08/24/18 08:20 Respiratory Rate 18 08/24/18 08:20 Blood Pressure 136/81 08/24/18 08:20 O2 Sat by Pulse Oximetry 97 08/24/18 08:20 Temperature 97.9 F 08/24/18 08:20 Pulse Rate 74 08/24/18 10:40 Respiratory Rate 18 08/24/18 09:56 Blood Pressure 132/71 08/24/18 10:40 O2 Sat by Pulse Oximetry 99 08/24/18 10:40 Oxygen Delivery Oxygen Delivery Nasal Cannula Medical Decision Making - Lab Data Result diagrams: 08/24/18 08:41 08/24/18 08:41 Lab Results 08/24/18 08/24/18 Range/Units 08:41 08:41 WBC 5.5 (4.3-11.1) K/mcL RBC 3.27 L (3.82-4.97) M/mcL Hgb 9.2 L (11.5-15.4) g/dL Hct 29.2 L (35.3-44.9) % MCV 89.3 (83.0-100.0) fL MCH 28.1 (28.0-33.3) pg MCHC 31.5 L (31.6-35.5) g/dL RDW 14.0 (11.5-14.5) % Plt Count 154 (140-400) K/mcL MPV 10.7 (9.4-12.4) fL Immature Gran % 0.4 (0-4) % Seg Neutrophils % 71.3 % Lymphocytes % 17.0 % Monocytes % 7.6 % Eosinophils % 3.3 % Basophils % 0.4 % Neutrophils # 4.0 (1.6-8.9) K/mcL Lymphocytes # 0.9 (0.6-4.6) K/mcL Monocytes # 0.4 (0.0-1.3) K/mcL Eosinophils # 0.2 (0.0-0.6) K/mcL Basophils # 0.0 (0.0-0.2) K/mcL Sodium 137 (136-145) mEq/L Potassium 3.9 (3.5-5.1) mEq/L Chloride 105 (98-107) mEq/L Carbon Dioxide 23 (23-29) mEq/L BUN 23 (8-23) mg/dL Creatinine 1.17 (0.60-1.20) mg/dL Est GFR ( Amer) 55 L (> 60) Est GFR (Non-Af Amer) 45 L (> 60) BUN/Creatinine Ratio 20 (6-26) Glucose 156 H (70-105) mg/dL Calculated Osmolality 291 (280-300) Calcium 9.0 (8.6-10.3) mg/dL Troponin I < 0.03 (< 0.04) ng/mL Attestation Statement - Attestation Attestation: I examined this patient and my medical decision-making was reviewed with the Resident Physician. I agree with the documented findings, disposition and treatment plan as described except to the extent set forth below. Patient to the ED with a chief clinic chest pain. Left-sided pressure that started about 30 minutes prior to arrival. Patient is status post a STEMI in May requiring stent placement. On exam she appears uncomfortable holding her chest and moaning. Blood pressure 1:30 systolic. Plan. Cardiac workup. We will repeat EKG in 10 minutes. Patient's initial EKG was concerning but not STEMI criteria. Repeat EKGs have improved. The patient's pain is improved as well. She has been discussed with cardiology on several occasions. She is received aspirin. Patient is on Eliquis. We will hold to start heparin tomorrow. Chest X-Ray 08/24/18 08:20 IMPRESSION: 1. Mild perihilar vascular prominence without overt congestive heart failure D/ / 08/24/2018 09:08:23 Kandace Patel MD / stephy Interpreting Provider: Kandace Patel MD
[2018-08-24 08:48] LABS: Basophils % 0.4 %; Eosinophils # 0.2 K/mcL (0.0-0.6); Eosinophils % 3.3 %; Hematocrit 29.2 % (35.3-44.9); Hemoglobin 9.2 g/dL (11.5-15.4); Immature Granulocytes % 0.4 % (0-4); Lymphocytes # 0.9 K/mcL (0.6-4.6); Mean Corpuscular HGB Conc 31.5 g/dL (31.6-35.5); Mean Corpuscular Hemoglobin 28.1 pg (28.0-33.3); Mean Corpuscular Volume 89.3 fL (83.0-100.0); Mean Platelet Volume 10.7 fL (9.4-12.4); Monocytes # 0.4 K/mcL (0.0-1.3); Monocytes % 7.6 %; Platelet Count 154 K/mcL (140-400); Red Blood Count 3.27 M/mcL (3.82-4.97); Segmented Neutrophils % 71.3 %
--- NOTE | 2018-08-24 08:53 | Emergency Department Note ---
Disposition Clinical Impression: Unstable angina pectoris Chest pain Qualifiers: Chest pain type: unspecified Qualified Code(s): R07.9 - Chest pain, unspecified Disposition: Admitted As Inpatient Condition: Fair Referrals: Carlos Enrique Sanchez Jr, MD [Primary Care Provider] - Chest Pain HPI - General Chief Complaint: ED Chest Pain Stated Complaint: CP Time Seen by Provider: 08/24/18 08:20 Source: EMS Mode of arrival: EMS Limitations: no limitations Nursing Notes Reviewed: Yes - History of Present Illness HPI Narrative: The patient is a 73 year old female with a history of CAD, [place], DM, HTN, that presents to the ED for chest pain. Per patient's report 30 minutes prior to arrival patient woke up with left-sided chest heaviness that radiates to the left shoulder, left ear, left scapula, and left arm. Patient denies any exacerbating factors including exertion. Rest does not alleviate her chest pain. Patient took 3 nitroglycerin at home with minimal relief of her symptoms. She received 324 mg of ASA from EMS. She admits to nausea, diaphoresis. She denies any fever, chills, headache, dizziness, palpitations, shortness of breath , abdominal pain, vomiting, numbness, tingling, and weakness. Patient had a STEMI back in 06/02/18, and was taken to the [facility] and had a cardiac sent placed at that time. Severity scale (1-10): 6 - Related Data Home Medications Medication Instructions Recorded Confirmed Apixaban [Eliquis] 5 mg PO BID 06/02/18 08/24/18 Cyanocobalamin (B-12) [Vitamin B12] 1,000 mcg IM QMONTH 06/02/18 08/24/18 Famotidine [Pepcid] 40 mg PO HS PRN 06/02/18 08/24/18 FluocinoNIDE 0.05% CRM [Lidex] 1 appl TP TID 06/02/18 08/24/18 Folic Acid 1 mg PO DAILY 06/02/18 08/24/18 GlipiZIDE [Glipizide ER] 10 mg PO DAILY 06/02/18 08/24/18 Levothyroxine Sodium 150 mcg PO DAILY 06/02/18 08/24/18 Metoprolol Succinate 25 mg PO BID 06/02/18 08/24/18 Oxycodone HCl 5 mg PO Q6H PRN 06/02/18 08/24/18 Triamterene/HCTZ 37.5/25mg 1 tab PO DAILY 06/02/18 08/24/18 [Dyazide] diazePAM [Valium] 5 mg PO BID PRN 06/02/18 08/24/18 metFORMIN [Glucophage] 500 mg PO TID 06/02/18 08/24/18 Lisinopril [Lisinopril] 2.5 mg PO DAILY 08/24/18 08/24/18 Rosuvastatin Calcium [Rosuvastatin 5 mg PO DAILY 08/24/18 08/24/18 Calcium] Previous Rx's Medication Instructions Recorded Aspirin 162 mg PO BID #60 tab.chew 06/06/18 Clopidogrel [Plavix] 75 mg PO DAILY #30 tablet 06/06/18 Nitroglycerin 0.4 mg SL Q5MIN PRN #15 tab.subl 06/06/18 Allergies Allergy/AdvReac Type Severity Reaction Status Date / Time amitriptyline AdvReac Seizure Verified 06/02/18 06:47 Amoxicillin [From Amoxil] AdvReac Nausea Verified 06/02/18 06:47 gluten AdvReac Abdominal Verified 06/02/18 06:47 Pain Constitutional: Denies: fever, chills, weakness Eyes: Denies: eye pain, vision change ENT ED: Denies: throat pain, congestion Cardiovascular: Reports: chest pain, other (diaphoresis). Denies: palpitations , dyspnea on exertion, syncope Respiratory: Denies: cough, dyspnea, wheezes Gastrointestinal: Reports: nausea. Denies: abdominal pain, vomiting, diarrhea, constipation, melena, hematochezia Genitourinary: Denies: urgency, dysuria, frequency, hematuria Musculoskeletal: Reports: back pain. Denies: neck pain Integumentary: Denies: rash, abrasion, lesions Neurological: Denies: headache, weakness, numbness, paresthesias Chest Pain PMH - Past Medical History Medical history: Reports: atrial fibrillation, cancer, diabetes, fibromyalgia, GERD, hypertension, thyroid disease, other Surgical history: Reports: hysterectomy Psychiatric history: Reports: anxiety, depression - Social History Smoking Status: Never smoker Alcohol use: Reports: none Drug use: Reports: none Physical Exam - General Limitations: no limitations General appearance: alert, anxious, in distress - Head Head exam: atraumatic, normocephalic - Eye Eye exam: Present: normal appearance. Absent: scleral icterus, conjunctival injection - ENT ENT exam: mucous membranes moist, normal external ear exam - Neck Neck exam: Present: normal inspection, full ROM, trachea midline - Chest Chest inspection: Present: normal inspection, symmetric chest wall rise. Absent : tenderness, rash - Respiratory Respiratory exam: Present: normal lung sounds bilaterally. Absent: respiratory distress, wheezes, accessory muscle use - Cardiovascular Cardiovascular exam: Present: regular rate, normal rhythm, normal heart sounds, other (radial and dorsalis pedis pulses are 2+/4 and equal bilaterally). Absent : systolic murmur, diastolic murmur, rubs, gallop - Abdominal Exam Abdominal exam: Present: soft, Non-Tender, distention, normal bowel sounds. Absent: guarding, rebound, rigidity - Extremities Exam Extremities exam: Present: normal inspection, full ROM. Absent: pedal edema, calf tenderness - Back Exam Back exam: Present: normal inspection, full ROM - Neurological Exam Neurological exam: Present: alert, oriented X3 - Psychiatric Psychiatric exam: Present: normal affect - Skin Skin exam: Present: warm, dry, intact, normal color. Absent: rash, cyanosis Course Course Narrative: Patient is a 73 year old female with a history of DM, HTN, CAD, recent [place] on with stent placement in the mid diagonal at that time that presents with chest pain, diaphoresis, and nausea. Patient took 3 nitro prior to arrival and received 324 mg of ASA from EMS. CBC, BMP, EKG, troponin were ordered. Patient started on Nitro drip and fentanyl was ordered for pain control. Vital Signs Temperature 97.9 F 08/24/18 08:20 Pulse Rate 69 08/24/18 08:20 Respiratory Rate 18 08/24/18 08:20 Blood Pressure 136/81 08/24/18 08:20 O2 Sat by Pulse Oximetry 97 08/24/18 08:20 Temperature 97.9 F 08/24/18 08:20 Pulse Rate 74 08/24/18 10:40 Respiratory Rate 18 08/24/18 09:56 Blood Pressure 132/71 08/24/18 10:40 O2 Sat by Pulse Oximetry 99 08/24/18 10:40 Oxygen Delivery Oxygen Delivery Nasal Cannula Chest Pain - MDM Narrative Medical decision making narrative: Patient's labs are unremarkable, patient is slightly more anemic with a hemoglobin of 9. Case was discussed with the electrician supervisor who recommends cathetrization likely tomorrow but would prefer to trend the patient's troponins. Patient is on Eliquis for her atrial fibrillation and will hold. A heparin drip will also be held at this time secondary to patient already anticougulated with eliquis. Patient's pain has improved with nitroglycerin drip and fentanyl. Patient will be admitted at this time. The case was discussed with the hospitalist who agrees to admission. - Lab Data Result diagrams: 08/24/18 08:41 08/24/18 08:41 Lab Results 08/24/18 08/24/18 Range/Units 08:41 08:41 WBC 5.5 (4.3-11.1) K/mcL RBC 3.27 L (3.82-4.97) M/mcL Hgb 9.2 L (11.5-15.4) g/dL Hct 29.2 L (35.3-44.9) % MCV 89.3 (83.0-100.0) fL MCH 28.1 (28.0-33.3) pg MCHC 31.5 L (31.6-35.5) g/dL RDW 14.0 (11.5-14.5) % Plt Count 154 (140-400) K/mcL MPV 10.7 (9.4-12.4) fL Immature Gran % 0.4 (0-4) % Seg Neutrophils % 71.3 % Lymphocytes % 17.0 % Monocytes % 7.6 % Eosinophils % 3.3 % Basophils % 0.4 % Neutrophils # 4.0 (1.6-8.9) K/mcL Lymphocytes # 0.9 (0.6-4.6) K/mcL Monocytes # 0.4 (0.0-1.3) K/mcL Eosinophils # 0.2 (0.0-0.6) K/mcL Basophils # 0.0 (0.0-0.2) K/mcL Sodium 137 (136-145) mEq/L Potassium 3.9 (3.5-5.1) mEq/L Chloride 105 (98-107) mEq/L Carbon Dioxide 23 (23-29) mEq/L BUN 23 (8-23) mg/dL Creatinine 1.17 (0.60-1.20) mg/dL Est GFR ( Amer) 55 L (> 60) Est GFR (Non-Af Amer) 45 L (> 60) BUN/Creatinine Ratio 20 (6-26) Glucose 156 H (70-105) mg/dL Calculated Osmolality 291 (280-300) Calcium 9.0 (8.6-10.3) mg/dL Troponin I < 0.03 (< 0.04) ng/mL
[2018-08-24 09:08] LABS: Troponin I < 0.03 ng/mL (< 0.04)
[2018-08-24] MEDS: Nitroglycerin 25 MG/250 ML INFUS..BTL IVC SCH (09:18)
[2018-08-24 09:36] LABS: BUN/Creatinine Ratio 20 (6-26); Blood Urea Nitrogen 23 mg/dL (8-23); Carbon Dioxide 23 mEq/L (23-29); Chloride 105 mEq/L (98-107); Glucose 156 mg/dL (70-105); Osmolality,Calculated 291 (280-300); Potassium 3.9 mEq/L (3.5-5.1); Sodium 137 mEq/L (136-145); eGFR For Non-African Americans 45 (> 60)
[2018-08-24] MEDS ORDERED: Naloxone 0.4 MG/ML INJ IVP PRN (10:36)
[2018-08-24] MEDS ORDERED: Acetaminophen 325 MG TABLET PO PRN (10:36)
--- NOTE | 2018-08-24 11:06 | Internal Med History&Physical ---
Date of Encounter: 08/24/18 Time of Encounter: 10:40 Internal Medicine - H&P: HPI Chief complaint: chest pain Admitted From: Home History of present illness: Ms. Espinosa is a 73 year old female with history of recent STEMI status post VAIBHAV to first diagonal and PTCA to second diagonal, DM, Afib, presented to the ED with 30 minute history of chest pain. Substernal/left sided, pressure-like, radiates to L side of the neck, associated with nausea but no vomiting. Happened while at rest after waking up. Tried sublingual nitroglycerin 3 times without relief. No aggravating factors. States that she was taken off aspirin about 2 weeks ago due to bleeding hemorrhoids but is compliant to plavix and Eliquis. Denies any fever/chills, cough, sputum production, abdominal pain, change in bowel habits. Her administered one baby aspirin followed by 3 more tabs by EMS and was brought to the ED. In the ED, she was afebrile and hemodynamically stable. Labs were unremarkable with normal troponin. EKG showed T-wave inversions in lateral leads. Chest x-ray did not show any significant cardiopulmonary findings. She was started on nitro drip and admitted for further management. Past Med Surg Social Fam HX - Past Medical History Attestation: Yes The following information was validated with the patient. Medical history: atrial fibrillation, cancer, coronary artery disease, diabetes , fibromyalgia, GERD, hypertension, thyroid disease, other Additional medical history: Skin Cancer Psychiatric history: anxiety, depression - Past Surgical History Surgical History: hysterectomy Additional surgical history: right leg qasim/screw - Social History Smoking Status: Never smoker Smokeless Tobacco Status: No Alcohol use: none Drug use: none - Family History Father Living Status: Mother Living Status: Internal Medicine - H&P: Meds Apixaban [Eliquis] 5 mg PO BID 06/02/18 [History] Cyanocobalamin (B-12) [Vitamin B12] 1,000 mcg IM QMONTH 06/02/18 [History] Famotidine [Pepcid] 40 mg PO HS PRN 06/02/18 [History] FluocinoNIDE 0.05% CRM [Lidex] 1 appl TP TID 06/02/18 [History] Folic Acid 1 mg PO DAILY 06/02/18 [History] GlipiZIDE [Glipizide ER] 10 mg PO DAILY 06/02/18 [History] Levothyroxine Sodium 150 mcg PO DAILY 06/02/18 [History] Metoprolol Succinate 50 mg PO DAILY 06/02/18 [History] Oxycodone HCl 5 mg PO Q6H PRN 06/02/18 [History] Triamterene/HCTZ 37.5/25mg [Dyazide] 0.5 tab PO DAILY 06/02/18 [History] diazePAM [Valium] 5 mg PO BID PRN 06/02/18 [History] metFORMIN [Glucophage] 500 mg PO TID 06/02/18 [History] Aspirin 162 mg PO BID #60 tab.chew 06/06/18 [Rx] Clopidogrel [Plavix] 75 mg PO DAILY #30 tablet 06/06/18 [Rx] Nitroglycerin 0.4 mg SL Q5MIN PRN #15 tab.subl 06/06/18 [Rx] 3 Allergy/AdvReac Type Severity Reaction Status Date / Time amitriptyline AdvReac Seizure Verified 06/02/18 06:47 Amoxicillin [From Amoxil] AdvReac Nausea Verified 06/02/18 06:47 gluten AdvReac Abdominal Verified 06/02/18 06:47 Pain All Systems PM: A 10-system review of systems was performed and is negative for pertinent findings except as documented above in the HPI. - Constitutional Vitals: Temp Pulse Resp BP Pulse Ox 97.9 F 74 18 132/71 99 08/24/18 08:20 08/24/18 10:40 08/24/18 09:56 08/24/18 10:40 08/24/18 10:40 Exam: General: Alert and oriented, not in acute distress. HEENT:EOM, pupils equal, round and reactive. Cardiovascular:Normal S1 & S2, No JVD. Pulse regular. No chest wall tenderness Lungs: clear to auscultation, no wheezes/rales Abdomen:Soft, non-tender, no rigidity. Extremities:No deformity or swelling Neurological:Normal cognition and motor skills. Non-focal Skin:Normal color, no rash, no lesions. Pulses:Carotid and radial pulses normal +2. Rest of the physical exam is non contributory Internal Med - H&P Results - Labs CBC & Chem 7: 08/24/18 08:41 08/24/18 08:41 Labs: Short CBC 08/24/18 Range/Units 08:41 WBC 5.5 (4.3-11.1) K/mcL Hgb 9.2 L (11.5-15.4) g/dL Hct 29.2 L (35.3-44.9) % Plt Count 154 (140-400) K/mcL Neutrophils # 4.0 (1.6-8.9) K/mcL BMP 08/24/18 08:41 Sodium 137 Potassium 3.9 Chloride 105 Carbon Dioxide 23 BUN 23 Creatinine 1.17 Glucose 156 H Calcium 9.0 Cardiac Enzymes 08/24/18 Range/Units 08:41 Troponin I < 0.03 (< 0.04) ng/mL - Impressions ITS Impressions Chest X-Ray 08/24/18 08:20 IMPRESSION: 1. Mild perihilar vascular prominence without overt congestive heart failure D/ / 08/24/2018 09:08:23 Kandace Patel MD / stephy Interpreting Provider: Kandace Patel MD - Assessment and plan (1) Unstable angina pectoris Current Visit: Yes Status: Acute Assessment and plan: Old records from May 2018 reviewed. Recent history of STEMI status post PCI in May 2018, now presenting with recurrent chest pain that is similar to her prior presentation First troponin negative, EKG shows some T-wave inversions in lateral leads Compliant to medications, has been on pelvic rest for A. fib. ASA 324mg given en route to the ED started on nitro gtt in the ED with pain down to 2, continue nitro gtt and titrate to resolution of chest pain will a/w cardiology evaluation for possible LHC today -> if not for today, will keep her on heparin gtt tonight until LHC tomorrow Resume home meds (2) Paroxysmal a-fib Current Visit: No Status: Acute Assessment and plan: Currently in normal sinus rhythm Suresh is on hold in anticipation for possible cath today If not for procedure today, will keep her on heparin gtt (3) Diabetes mellitus Current Visit: No Status: Chronic Assessment and plan: On Glipizide and metformin at home. 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
[2018-08-24] MEDS ORDERED: D5% in Water 1,000 ML IVC PRN (11:11)
[2018-08-24] MEDS ORDERED: *HR* Dextrose 50 % in Water (Syg) 50 ML SYRINGE IVP PRN (11:11)
[2018-08-24] MEDS ORDERED: Dextrose Gel 15 GM/37.5 ML TUBE PO PRN ×2 (11:11)
[2018-08-24] MEDS: Insulin LISPRO 300 UNITS/3 ML VIAL SQ SCH ×2 (12:00→20:15)
[2018-08-24] MEDS ORDERED: Famotidine 20 MG TABLET PO PRN (12:25)
[2018-08-24] MEDS ORDERED: diazePAM 5 MG TABLET PO PRN (12:25)
[2018-08-24] MEDS ORDERED: Cyanocobalamin (B-12) 1,000 MCG/ML VIAL IM SCH (12:30)
[2018-08-24] MEDS: FluocinoNIDE 0.05% CRM 15 GM TUBE TP SCH (15:00)
[2018-08-24] MEDS ORDERED: *HR* Morphine 2 MG/ML SYRINGE IVP ONE (17:00)
--- NOTE | 2018-08-24 17:12 | Cardiology Consult Note ---
Date of Encounter: 08/24/18 Time of Encounter: 17:10 Assessment and Plan (1) Chest pain Current Visit: Yes Status: Acute 73-year-old female with history of PCI to diagonal 1 with diagonal 2 branch and through placed stent currently having similar chest pain as before much less intense with peak troponin of 0.56. Risks benefits and alternatives of a LHC were discussed with the patient and she agrees to proceed. Qualifiers: Chest pain type: unspecified Qualified Code(s): R07.9 - Chest pain, unspecified Discussion w patient/family: The assessment and plan as outlined above was discussed with the patient and/or family members who expressed understanding and agreement. All questions were answered. Thank you for involving us in the care of your patient. Please call with any questions. History of Present Illness Consult date: 08/24/18 Consult reason: Chest Pain Chief complaint: Chest Pain History of present illness: Ms. Espinosa is a 73 year old female with history of coronary artery disease status post-PCI to her diagonal 1 with diagonal to branching through the stent. Patient states chest pain similar to her previous episode however much less intense currently between 2 and 4 out of 10. Initial troponin was negative currently at 0.5 to with ongoing discomfort. Patient does take eliquis however did not take it this morning understands the risks of bleeding with a LHC. She also understands risks benefits and alternatives of and LHC and agrees to proceed. EKG shows nonspecific ST changes Past Med Surg Social Fam HX - Past Medical History Medical history: atrial fibrillation, cancer, diabetes, fibromyalgia, GERD, hypertension, thyroid disease, other Additional medical history: celiac sprue Psychiatric history: anxiety, depression - Past Surgical History Surgical History: hysterectomy Additional surgical history: toe surgery - Social History Smoking Status: Never smoker Smokeless Tobacco Status: No Alcohol use: none Drug use: none - Family History Father Living Status: Mother Living Status: Medications and Allergies Apixaban [Eliquis] 5 mg PO BID 06/02/18 [History] Cyanocobalamin (B-12) [Vitamin B12] 1,000 mcg IM QMONTH 06/02/18 [History] Famotidine [Pepcid] 40 mg PO HS PRN 06/02/18 [History] FluocinoNIDE 0.05% CRM [Lidex] 1 appl TP TID 06/02/18 [History] Folic Acid 1 mg PO DAILY 06/02/18 [History] GlipiZIDE [Glipizide ER] 10 mg PO DAILY 06/02/18 [History] Levothyroxine Sodium 150 mcg PO DAILY 06/02/18 [History] Metoprolol Succinate 25 mg PO BID 06/02/18 [History] Oxycodone HCl 5 mg PO Q6H PRN 06/02/18 [History] Triamterene/HCTZ 37.5/25mg [Dyazide] 1 tab PO DAILY 06/02/18 [History] diazePAM [Valium] 5 mg PO BID PRN 06/02/18 [History] metFORMIN [Glucophage] 500 mg PO TID 06/02/18 [History] Aspirin 162 mg PO BID #60 tab.chew 06/06/18 [Rx] Clopidogrel [Plavix] 75 mg PO DAILY #30 tablet 06/06/18 [Rx] Nitroglycerin 0.4 mg SL Q5MIN PRN #15 tab.subl 06/06/18 [Rx] Lisinopril [Lisinopril] 2.5 mg PO DAILY 08/24/18 [History] Rosuvastatin Calcium [Rosuvastatin Calcium] 5 mg PO DAILY 08/24/18 [History] 3 Allergy/AdvReac Type Severity Reaction Status Date / Time amitriptyline AdvReac Seizure Verified 06/02/18 06:47 Amoxicillin [From Amoxil] AdvReac Nausea Verified 06/02/18 06:47 gluten AdvReac Abdominal Verified 06/02/18 06:47 Pain All Systems Review: The remainder of the systems were reviewed and are negative Physical Examination Vital Signs, Last 4 Hours Temp Pulse Resp BP Pulse Ox 08/24/18 16:27 97.7 F 80 16 134/72 97 General: Conversant, No Apparent Distress HEENT: Atraumatic, Normocephaly, Mucus Membranes Moist Neck: No JVD, Normal carotid pulses Cardiac: Reg Rate and Rhythm, Normal S1 and S2, No Murmur Lungs: Normal Breath Sounds, No Wheeze, Rales, Rhonchi Neuro: Alert and responsive, No focal deficits noted Abdomen: Soft, Non-Tender Skin: No rashes noted on visualized skin Musculoskeletal: No Chest Wall Tenderness Extremities: No Clubbing, No Cyanosis, No Edema, Normal Pulses Results 08/24/18 08:41 08/24/18 08:41 Lab Results 08/24/18 14:19 Troponin I 0.52 H* Consult Discharge Plan - Plan Referrals: Carlos Enrique Sanchez Jr, MD [Primary Care Provider] -
[2018-08-24] MEDS ORDERED: ISOVUE-370 200 ML INFUS..BTL IV ONE ×2 (17:38→18:38)
[2018-08-24] MEDS ORDERED: Heparin 1,000 UNITS/500 mL 500 ML ONE (17:38)
[2018-08-24] MEDS ORDERED: 0.9 % Sodium Chloride 1,000 ML ONE ×2 (17:38→18:01)
[2018-08-24] MEDS ORDERED: Nitroglycerin 1,000 MCG/10 ML VIAL IV ONE (17:38)
[2018-08-24] MEDS ORDERED: *HR* Heparin 10,000 UNIT/10 ML VIAL ONE (17:38)
--- NOTE | 2018-08-24 17:48 | Pre-Sedation Evaluation ---
Pre-sedation evaluation - Pre-sedation checklist Date of procedure: 08/24/18 Procedure: LHC Recent Vitals: Last Vital Signs Temp 97.7 F 08/24/18 16:27 Pulse 80 08/24/18 16:27 Resp 16 08/24/18 16:27 BP 134/72 08/24/18 16:27 Pulse Ox 97 08/24/18 16:27 H&P (including ROS) documented in medical record: Yes Previous reaction to sedatives/anesthetics: No Dietary Status: NPO after Midnight Dentition: No loose teeth or bridges ASA Classification *see protocol: CLASS II-Mild systemic disease Cardiac Registry (Cardio Only) - Functional Capacity Functional Capacity: < 4 METS - Clincal Frailty Scale Clinical Frailty Scale: Mildly Frail
[2018-08-24] MEDS ORDERED: *HR* Midazolam HCl 2 MG/2 ML VIAL ONE (18:00)
[2018-08-24] MEDS ORDERED: *HR* FentaNYL (PF) 100 MCG/2 ML VIAL ONE (18:00)
[2018-08-24] MEDS ORDERED: Tirofiban 12.5 MG/250ML 12.5 MG/250 ML BAG ONE (18:10)
--- NOTE | 2018-08-24 19:27 | Invasive Diagnostic Lab Proc ---
Name: Bisi Espinosa Date of Study: 08/24/2018 Date: 1945 Ht: 64.2in Medical Record#: [id number] Age: 73 Wt: 158.73lb Gender: Female BSA: 1.78 Order #: [id number] BMI: 27.1 Physicians Procedure Physician: Meghan Osei MD Referring MD: Referring MD: Staff Name Position Time In HeRomeo taveras MD, [facility] Flat Finisher 06:11 PM Patria Grant RN Flat Finisher 06:11 PM France Pinedo RT Scrub 06:11 PM Indications Indication Non-Stemi Procedures Performed Procedure L HRT ARTERY/VENTRICLE ANGIO PRQ CARDIAC ANGIOPLAST 1 ART PRQ CARD VAIBHAV STENT W/ANGIO 1 VSL PRQ CARDIAC ANGIO ADDL ART Pre-Procedure Checklist Informed consent is complete signed and on chart. H&P is on chart. ID band is on and ID verified with patient. Patient NPO for procedure The procedure was described for the patient and questions were answered. Blood Pressure: 134/72 ECG is on chart. Rhythm: Atrial Fibrillation Plan of Care Patient will tolerate the procedure without complications. Adequate level of comfort will be maintained. Hemodynamics will remain stable Patient will recover from procedure without complications. Respiratory function will be maintained. Cardiac rhythm will remain stable. Patient temperature will be maintained. Patient and/or family have verbalized understanding of the procedure. Patient Education Chief Complaint/Reason for Test: Cardiac Cath Developmental Category: Geriatric (65+ years) Developmentally Appropriate for Age: Yes Learning Barriers: None Education Needs: Procedure Education Method: Verbal Information Taught: Cardiac Cath Educational Evaluation: Able to repeat information Intravenous Access Time IV Size Location DC'd Fluid/Drip Rate Units RN 05:51 PM 20g 1 /" Patent On Arrival Lt Wrist 0.9NaCl 25 ml/hr Patria Grant RN Allergies Amoxicillin gluten amitriptyline Vital Signs Time BP (mmHg) HR (bpm) O2 Sat. RR (bpm) LOC 05:51 PM 134 / 72 80 97 % 16 5 = Fully awake and oriented or at pre-proc level 06:12 PM / % 4 = Oriented but drowsy 06:12 PM / % 4 = Oriented but drowsy 06:27 PM / % 4 = Oriented but drowsy 06:42 PM / % 4 = Oriented but drowsy 06:07 PM 143 / 81 110 97 % 16 06:12 PM 132 / 70 73 100 % 14 06:17 PM 136 / 80 94 100 % 15 06:22 PM 132 / 88 111 99 % 30 06:27 PM 140 / 85 99 98 % 18 06:32 PM 132 / 66 79 99 % 16 06:37 PM 133 / 87 100 100 % 19 06:42 PM 128 / 75 94 98 % 14 06:47 PM 136 / 85 90 95 % 17 06:52 PM 138 / 83 90 95 % 14 06:57 PM 135 / 77 97 100 % 20 07:02 PM 133 / 76 76 96 % 18 Procedural Medications Time Medication Dose Units Method Given By 06:12 PM Oxygen 2 L/min nasal cannula Patria Grant RN 06:12 PM Versed 1 mg Intravenous Patria Grant RN 06:12 PM Fentanyl 25 mcg Intravenous Patria Grant RN 06:14 PM Lidocaine 2% 19 ml Subcutaneous Meghan Osei MD 06:22 PM Heparin 2500 units Intravenous Patria Grant RN 06:26 PM Aggrastat 5mg/100ml 37.5 ml Intravenous Patria Grant RN 06:26 PM Aggrastat 12.5mg/250ml 6.75 ml Intravenous Patria Grant RN 06:41 PM Versed 0.5 mg Intravenous Patria Grant RN 06:41 PM Fentanyl 25 mcg Intravenous Patria Grant RN 07:03 PM Plavix 150 mg Orally Patria Grant RN ASA Classification: CLASS II- Mild systemic disease (i.e. well-controlled diabetes, hypertension, asthma, cigarette smoking) Vince Score Preprocedure Postprocedure Activity 2- Moves 4 extremities sustained head lift Activity 2- Moves 4 extremities sustained head lift Circulation 2- SBP +/= 20 points of pre-anesthetic level Circulation 2- SBP +/= 20 points of pre-anesthetic level Consciousness 2- Awake and alert oriented x 3 Consciousness 2- Awake and alert oriented x 3 O2 Saturation 2- Able to maintain O2 satruation of 92% on room air O2 Saturation 2- Able to maintain O2 satruation of 92% on room air Respiratory 2- Able to deep breathe and cough well Respiratory 2- Able to deep breathe and cough well Total Score 10 Total Score 10 Contrast Agent: Isovue Diagnostic Contrast: 220 ml Total Contrast: 220 ml Fluoro Dose: 46604 mGy Activated Clotting Time Time Seconds to Clot 06:42 PM 239 Procedure Log Time Note Enter By 05:46 PM CathStat 06:06 PM Vitals capture started with the following parameters, Patient=Adult, Interval=5 min, Initial Gyulxewd=087 mmHg, Deflation Rate=5 mmHg, Cuff placed on Right Arm 06:07 PM TW=416 bpm, POCX=016/81 mmhg, SpO2=97.0 %, Resp=16 B/min, Comment=NSR 06:09 PM Recorded ECG: HR=79 Condition=Condition 1 06:09 PM Recorded ECG: HR=79 Condition=Condition 1 06:11 PM Pt arrived to blood and plasma laboratory assistant 2 at 18:11 [email or web address] 06:11 PM Romeo He MD, [facility] Position: Flat Finisher Time in: 18:11 [email or web address] 06:11 PM Patria Grant RN Position: Flat Finisher Time in: 18:11 [email or web address] 06:11 PM France Pinedo Position: Scrub Time in: 18:11 [email or web address] 06:11 PM Patient charges- Angio tray pack, Navilyst 3mm J, Pulse Oximetry and ACIST tubing and transducer [email or web address] 06:11 PM IV Supplies used: J loop Angio Cath. [email or web address] 06:12 PM Case Delayed no [email or web address] 06:12 PM Hair removed from procedure site in holding area using clippers. Bilateral groin prepped with Chloraprep by Jessica Mark (R), then patient was draped. Skin intact. [email or web address] 06:12 PM Physician arrived 18:12 [email or web address] 06:12 PM ASA Class CLASS II- Mild systemic disease (i.e. well-controlled diabetes, hypertension, asthma, cigarette smoking) [email or web address] 06:12 PM Александр and irais completed [email or web address] 06:12 PM Sign in performed according to hospital policy. Informed consent was obtained. [email or web address] 06:12 PM HR=73 bpm, FJOY=096/70 mmhg, OeF6=581.0 %, Resp=14 B/min, Comment=NSR 06:12 PM Procedure start 18:12 [email or web address] 06:12 PM Time: 18:12 Oxygen on at 2 L/min per nasal cannula by Pat[email or web address] 06:12 PM Time: 18:12 Versed 1 mg Intravenous Given by Patria Grant RN [email or web address] 06:12 PM Time: 18:12 Fentanyl 25 mcg Intravenous Given by Patria Grant RN [email or web address] 06:12 PM Time: 18:12 Patient comfortable and pain free: Yes [email or web address] 06:12 PM Time: 18:12LOC: 4 = Oriented but drowsy [email or web address] 06:13 PM Pressure channel 1 zero failed. 06:13 PM Time out was performed according to hospital policy. Conscious sedation and anesthesia was achieved (see medication log with in this report above) [email or web address] 06:15 PM Time: 18:14 19 ml Lidocaine 2% to right groin Subcutaneous Given by Meghan Osei MD [email or web address] 06:15 PM Pressure channel 1 zeroed. 06:15 PM Micro-Introducer Kit utilized for sheath placement [email or web address] 06:16 PM 3 mls contrast injected into rt groin. [email or web address] 06:16 PM Access obtained by percutaneous puncture. 6Fr 10cm Terum[employer] [place] sheath placed in right Femoral artery. [id number] [email or web address] 06:16 PM 0.035 145cm Navilyst 3mmJ wire [id number] [email or web address] 06:17 PM 5Fr FR 4 catheter inserted over the wire DNC [email or web address] 06:17 PM HR=94 bpm, KSRA=610/80 mmhg, McP9=224.0 %, Resp=15 B/min, Comment=NSR 06:17 PM RCA angiography performed in multiple views. [email or web address] 06:18 PM Recorded Pressure: Ao, HR=92, Condition=Condition 1 (Aorta) Ao 124/82/102 06:18 PM Coronary Dominance: right [email or web address] 06:19 PM Lesion found in Distal RCA. Pre Stenosis: 100 Pre KATIE Flow: 0: No Flow/No perfusion [email or web address] 06:19 PM Catheter removed [email or web address] 06:19 PM 6Fr XB LAD 3.5 Harvey Bright-Tip guide catheter was used to cannulate the PCI vessel successfully. reused? No [email or web address] 06:19 PM LCA angiography performed in multiple views. [email or web address] 06:20 PM Recorded Pressure: Ao, HR=95, Condition=Condition 1 (Aorta) Ao 133/64/93 06:22 PM VG=716 bpm, PZSR=450/88 mmhg, SpO2=99.0 %, Resp=30 B/min, Comment=NSR 06:22 PM Time: 18:22 Heparin 2500 units Intravenous Given by Patria Grant RN [email or web address] 06:25 PM .014 [employer] [place] 190cm guide wire across target lesion- successful. reused? No [email or web address] 06:25 PM .014 [employer] [place] 190cm guide wire across target lesion- successful. reused? No [email or web address] 06:25 PM Inflation device was opened. [email or web address] 06: PM Time: 18:26 Aggrastat 5mg/100ml 37.5 ml Intravenous Given by Patria Grant RN Mckee pump [email or web address] 06: PM Time: 18:26 Aggrastat 12.5mg/250ml 6.75 ml Intravenous Given by Patria Grant RN Mckee pump [email or web address] 06:27 PM HR=99 bpm, ADYE=338/85 mmhg, SpO2=98.0 %, Resp=18 B/min, Comment=NSR 06:27 PM Time: 18:12 Patient comfortable and pain free: Yes [email or web address] 06:27 PM Time: 18:12LOC: 4 = Oriented but drowsy [email or web address] 06:29 PM 2. [email or web address] 06:30 PM Balloon inflated @ 6 teresa for 13 seconds [email or web address] 06:31 PM Balloon inflated @ 6 teresa for 8 seconds [email or web address] 06:31 PM Balloon inflated @ 6 teresa for 6 seconds [email or web address] 06:32 PM HR=79 bpm, JODM=241/66 mmhg, SpO2=99.0 %, Resp=16 B/min, Comment=NSR 06:32 PM Balloon catheter removed intact. [email or web address] 06:32 PM 2.5 mm x 8mm NC Emerge balloon across target lesion- successful. reused? No [email or web address] 06:33 PM Balloon inflated @ 12 teresa for 8 seconds NC balloon in Diag 1. [email or web address] 06:33 PM Balloon inflated @ 18 teresa for 10 seconds [email or web address] 06:34 PM Balloon inflated @ 18 teresa for 8 seconds [email or web address] 06:34 PM Balloon inflated @ 18 teresa for 8 seconds [email or web address] 06:35 PM Balloon inflated @ 18 teresa for 8 seconds [email or web address] 06:35 PM Balloon catheter removed intact. [email or web address] 06:36 PM Guide wires removed intact. [email or web address] 06:36 PM Guide catheter removed intact. [email or web address] 06:37 PM DT=982 bpm, MGST=432/87 mmhg, WbU7=854.0 %, Resp=19 B/min, Comment=NSR 06:37 PM 6Fr JR 4 Harvey Bright-Tip guide catheter was used to cannulate the PCI vessel successfully. reused? No [email or web address] 06:38 PM Recorded Pressure: Ao, HR=89, Condition=Condition 1 (Aorta) Ao 145/70/104 06:38 PM BMW wire re-inserted. [email or web address] 06:41 PM Time: 18:41 Versed 0.5 mg Intravenous Given by Patria Grant RN 06:41 PM Time: 18:41 Fentanyl 25 mcg Intravenous Given by Patria Grant RN [email or web address] 06:42 PM At 18:42 the ACT was 239 seconds. [email or web address] 06:42 PM 2nd BMW wire re-inserted. [email or web address] 06:42 PM HR=94 bpm, MWSM=379/75 mmhg, SpO2=98.0 %, Resp=14 B/min, Comment=NSR 06:42 PM Time: 18:27 Patient comfortable and pain free: Yes [email or web address] 06:42 PM Time: 18:27LOC: 4 = Oriented but drowsy [email or web address] 06:43 PM Recorded Pressure: Ao, HR=92, Condition=Condition 1 (Aorta) Ao 134/75/103 06:47 PM HR=90 bpm, RGFN=366/85 mmhg, SpO2=95.0 %, Resp=17 B/min, Comment=NSR 06:47 PM 2.0 mm x 12 mm Emerge [place] balloon across target lesion- successful. reused? No [email or web address] 06:47 PM Balloon inflated @ 6 teresa for 10 seconds in RPL. [email or web address] 06:48 PM Balloon inflated @ 10 teresa for 14 seconds in RPL. [email or web address] 06:48 PM Balloon repositioned to RPDA [email or web address] 06:48 PM Balloon inflated @ 6 teresa for 6 seconds [email or web address] 06:49 PM Balloon catheter removed intact. [email or web address] 06:50 PM 2.75mm x 12mm Synergy drug-eluting stent across target lesion- successful Lot #[id number] [email or web address] 06:51 PM Stent deployed @ 11 teresa for 12 seconds [email or web address] 06:52 PM Stent balloon reinflated @ 14 teresa for 12 seconds [email or web address] 06:52 PM HR=90 bpm, CRCR=331/83 mmhg, SpO2=95.0 %, Resp=14 B/min, Comment=NSR 06:52 PM Stent balloon reinflated @ 12 teresa for 5 seconds [email or web address] 06:53 PM Stent delivery system removed intact. [email or web address] 06:53 PM Guide wires removed intact. [email or web address] 06:53 PM Guide catheter removed intact. [email or web address] 06:54 PM 5Fr Pigtail catheter inserted over the wire DN [email or web address] 06:54 PM Catheter crossed the aortic valve and was selectively placed in the left ventricle. Pressures recorded on pullback for left heart catheterization. [email or web address] 06:55 PM Recorded Pressure: LV, HR=95, Condition=Condition 1 (Left Ventricle) LV 141/9/15 06:55 PM Bolus angiogram of left Ventricle complete: 10 ml/sec for a total of 25 mls [email or web address] 06:56 PM Recorded Pressure: LV, Ao, HR=90, Condition=Condition 1 (Left Ventricle) LV 128/25/27, (Aorta) Ao 135/77/105 06:57 PM HR=97 bpm, YIGK=642/77 mmhg, QeK9=672.0 %, Resp=30 B/min, Comment=NSR 06:57 PM Catheter removed [email or web address] 06:57 PM Procedure completed at 18:57 08/24/2018 [email or web address] 06:57 PM Did you address KATIE flow and Dominance? Yes [email or web address] 06:57 PM Time: 18:42LOC: 4 = Oriented but drowsy [email or web address] 06:58 PM Sign out completed: Radiation Dose 1229.24 mGy, 52013 cGy/cm2 Fluoro Time: 9.8 Isovue 370 - 138ml contrast 220 ml given by Meghan Osei MD. Complications: None. 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 Cardiac Rehab Consult needed: YesConfirmed administered medications: [email or web address] 06:58 PM Isovue 370 - 200ml,2 Bottle(s) used. [email or web address] 06:58 PM Sheath left in place to be pulled on floor/holding areaV+Pad [email or web address] 06:58 PM Estimated Blood Loss: minimal [email or web address] 06:58 PM Post ECG NSR [email or web address] 06:58 PM Post Blood Pressure 135/77 [email or web address] 06:58 PM 18:58 Post Pulses Bilateral DP & PT 2+ [email or web address] 06:59 PM Information taught Cardiac Cath and PCI [email or web address] 06:59 PM Education needs Procedure, Plan of Care, and Disease Process [email or web address] 06:59 PM Learning barriers :None [email or web address] 06:59 PM Education evaluation Able to repeat information [email or web address] 06:59 PM Education evaluation Able to repeat information [email or web address] 06:59 PM Site status No bleeding/hematoma - Rt Groin as reported by France Pinedo RT at 18:59 [email or web address] 06:59 PM Opsite applied [email or web address] 06:59 PM Delay to floor No [email or web address] 06:59 PM Family placed in consult room. [email or web address] 06:59 PM Complications: None [email or web address] 07:00 PM Time: 18:42 Patient comfortable and pain free: Yes [email or web address] 07:02 PM HR=76 bpm, YQEO=340/76 mmhg, SpO2=96.0 %, Resp=18 B/min, Comment=NSR 07:03 PM Time: 19:03 Plavix 150 mg Orally Given by Patria Grant RN [email or web address] 07:17 PM Report given to Juana ANTUNEZ Pt taken to 2N Room #2. 19:17 [email or web address] 07:18 PM Delay to floor No [email or web address] 07:18 PM Patient out of room: 19:18 [email or web address] Complications Complication None None Hemodynamics Pressures Site Systolic/A Wave Diastolic/V Wave Mean AO 124 82 102 AO 133 64 93 AO 145 70 104 AO 134 75 103 LV 141 9 15 LV 128 25 27 AO 135 77 105 Post Procedure Information Blood Pressure: 135/77 mmHg Rhythm: NSR Post procedural instructions were given Site Checks Time Location Status Staff Sheath In? Note 06:59 PM Rt Groin No bleeding/hematoma France Pinedo RT Pulses Time Site Pre-Procedure Post-Procedure Note 08/24/2018 5:51:00 PM Bilateral DP & PT 2+ 08/24/2018 6:11:00 PM Bilateral radial 2+ 6:58:00 PM Bilateral DP & PT 2+ Updated by RT Gaston(R) on 08/24/2018 7:20:25 PM electronically signed on 08/24/2018 7:21:04 PM with status of Final
[2018-08-24] MEDS ORDERED: Tirofiban 12.5 MG/250ML 12.5 MG/250 ML BAG IVC SCH (19:30)
[2018-08-25] MEDS ORDERED: *HR* Atropine Sulfate 1 MG/10 ML SYRINGE ONE (03:05)
[2018-08-25 04:19] LABS: Hematocrit 26.4 % (35.3-44.9); Hemoglobin 8.4 g/dL (11.5-15.4); Mean Corpuscular HGB Conc 31.8 g/dL (31.6-35.5); Mean Corpuscular Hemoglobin 28.2 pg (28.0-33.3); Mean Corpuscular Volume 88.6 fL (83.0-100.0); Mean Platelet Volume 10.7 fL (9.4-12.4); Platelet Count 152 K/mcL (140-400); Red Blood Count 2.98 M/mcL (3.82-4.97)
[2018-08-25 04:43] LABS: BUN/Creatinine Ratio 15 (6-26); Blood Urea Nitrogen 14 mg/dL (8-23); Calcium 8.8 mg/dL (8.6-10.3); Carbon Dioxide 24 mEq/L (23-29); Chloride 107 mEq/L (98-107); Glucose 197 mg/dL (70-105); Osmolality,Calculated 294 (280-300); Potassium 4.1 mEq/L (3.5-5.1); Sodium 139 mEq/L (136-145); eGFR For Non-African Americans 57 (> 60)
[2018-08-25] MEDS: Metoprolol XL (24 HR) Succ 25 MG TAB.ER.24H PO SCH ×3 (05:16→20:35)
[2018-08-25] MEDS: FluocinoNIDE 0.05% CRM 15 GM TUBE TP SCH ×3 (05:17→16:00)
[2018-08-25] MEDS: Insulin LISPRO 300 UNITS/3 ML VIAL SQ SCH ×4 (05:17→16:02)
[2018-08-25] MEDS: Nitroglycerin 25 MG/250 ML INFUS..BTL IVC SCH (05:19)
[2018-08-25] MEDS: *HR* HYDROcodone/Acet 5/325 mg TABLET PO PRN ×2 (05:26→16:07)
[2018-08-25] MEDS ORDERED: D5% in Water 1,000 ML IVC PRN (05:55)
[2018-08-25] MEDS ORDERED: Dextrose Gel 15 GM/37.5 ML TUBE PO PRN ×2 (05:55)
[2018-08-25] MEDS ORDERED: *HR* Dextrose 50 % in Water (Syg) 50 ML SYRINGE IVP PRN (05:55)
[2018-08-25] MEDS: Aspirin Enteric Coated 81 MG Tablet PO SCH (07:53)
[2018-08-25] MEDS: Folic Acid 1 MG TABLET PO SCH (07:54)
--- NOTE | 2018-08-25 09:33 | Internal Med Progress Note ---
Hospitalist Progress Note - Encounter Date of Encounter: 08/25/18 Time of Encounter: 09:31 - Subjective Interval History: 73 F with PMH of CAD, admitted and being managed for unstable angina She is s/p LHC10/7 with VAIBHAV placement She is seen and examined at the bedside this a.m, chest pain free Additional diagnoses of DM, Paroxysmal Afib , Hypothyroidism ECHO is pending - Exam Vitals: Temp Pulse Resp BP Pulse Ox 98 F 90 19 106/59 97 08/25/18 04:27 08/25/18 07:15 08/25/18 07:15 08/25/18 07:15 08/25/18 07:15 Exam: General: Alert and oriented, not in acute distress. HEENT:EOM, pupils equal, round and reactive. Cardiovascular:Normal S1 & S2, No JVD. Pulse regular. No chest wall tenderness Lungs: clear to auscultation, no wheezes/rales Abdomen:Soft, non-tender, no rigidity. Extremities:No deformity or swelling Neurological:Normal cognition and motor skills. Non-focal Skin:Normal color, no rash, no lesions. Pulses:Carotid and radial pulses normal +2. : cath ite clean and dry, no hematoma - Assessment and Plan (1) Paroxysmal a-fib Current Visit: Yes Status: Chronic Assessment and Plan: Currently in normal sinus rhythm Resume eliquis, continue BB (2) Diabetes mellitus Current Visit: Yes Status: Chronic Assessment and Plan: On Glipizide and metformin at home at hold, FS ACHS Low-dose sliding scale coverage (3) Hypertension Current Visit: Yes Status: Chronic Assessment and Plan: continue home meds (4) DVT prophylaxis Current Visit: Yes Status: Acute Assessment and Plan: on Eliquis, resume same (5) Unstable angina pectoris Current Visit: Yes Status: Acute Assessment and Plan: Old records from May 2018 reviewed. Recent history of STEMI status post PCI in May 2018 Presented with recurrent chest pain that is similar to her prior presentation Peak trop 22, EKG shows some T-wave inversions in lateral leads s/p LHC with PCI placement ECHO pending Patient chest pain free Resume home meds Cardiology following - Time Spent with Patient Total time spent is greater than 50% in coordination of care (as documented) at patient's floor/unit and/or counseling patient: Plan of Care Discussed with: patient Internal Medicine: Result - Labs CBC & Chem 7: 08/25/18 04:08 08/25/18 04:08 Labs: Short CBC 08/25/18 Range/Units 04:08 WBC 7.6 (4.3-11.1) K/mcL Hgb 8.4 L (11.5-15.4) g/dL Hct 26.4 L (35.3-44.9) % Plt Count 152 (140-400) K/mcL BMP 08/25/18 04:08 Sodium 139 Potassium 4.1 Chloride 107 Carbon Dioxide 24 BUN 14 Creatinine 0.95 Glucose 197 H Calcium 8.8 Cardiac Enzymes 08/24/18 08/24/18 Range/Units 14:19 20:30 Troponin I 0.52 H* 22.17 H* (< 0.04) ng/mL Consult Discharge Plan - Plan Referrals: Carlos Enrique Sanchez Jr, MD [Primary Care Provider] - 09/01/18 2:30 pm (Appointment will be with Flower Marrufo..If you are unable to make it to the appointment please call and reschedule the appointment. Thank You) (2) Diabetes mellitus Qualifiers: Diabetes mellitus type: type 2 Diabetes mellitus terminal clerk insulin use: unspecified assisted insulin use status Diabetes mellitus complication status : without complication Qualified Code(s): E11.9 - Type 2 diabetes mellitus without complications (3) Hypertension Qualifiers: Hypertension type: essential hypertension Qualified Code(s): I10 - Essential (primary) hypertension
[2018-08-25] MEDS: *HR* OxyCODONE Immed Rel 5 MG TABLET PO PRN (10:45)
--- NOTE | 2018-08-25 10:57 | Cardiology Progress Note ---
Date of Encounter: 08/25/18 Time of Encounter: 09:30 Assessment and Plan (1) NSTEMI (non-ST elevated myocardial infarction) Current Visit: Yes Status: Acute Per cardiology: -NSTEMI with peak troponin 22. 17. -S/p [facility] yesteday with preliminary report reviewed with VAIBHAV to PDA and PTCA to diagonal 1. -On asa, statin, BB, plavix. -Denies chest pain. -Right groin access site with dressing intact. No hematoma. -Educated on dual anti-platelet therapy uninterrupted for at least one year. States understanding. -TTE with LVEF 50-55%, mild diastolic dysfunction, mild MR, mid inferior and basal inferior self hypokinetic, all other wall segments with normal motion. LVEF has improved from previous 30-35%. -Discussed and reviewed with , will stop plavix. WIll start brilinta. -Will increase crestor to 10mg. Had myalgias previously with statins. (2) Ischemic cardiomyopathy Current Visit: Yes Status: Acute Per cardiology: -Previously LVEF 30--35%, now improved to 50-55%. -Euvoelmic on exam. -ON BB, toprol. (3) Paroxysmal a-fib Current Visit: Yes Status: Chronic Per cardiology: -Known PAF. -ON BB. -HR controlled. -ON eliquis for anticoagulation in outpatient setting. -Will resume eliquis this evening. (had sheathed pulled around 0300). Discussion w patient/family: The assessment and plan as outlined above was discussed with the patient and/or family members who expressed understanding and agreement. All questions were answered. Thank you for involving us in the care of your patient. Please call with any questions. Discussed and reviewed with . Subjective Principal diagnosis: NSTEMI Interval history: Patient somewhat sleepy this morning. Arouses to verbal stimuli. Denies chest pain. Objective Vital Signs, Last 4 Hours Pulse Resp BP Pulse Ox 08/25/18 10:00 95 08/25/18 07:15 90 19 106/59 97 08/25/18 07:00 89 General: Conversant, No Apparent Distress HEENT: Atraumatic, Normocephaly, Mucus Membranes Moist Neck: No JVD, Normal carotid pulses Cardiac: Reg Rate and Rhythm, Normal S1 and S2, No Murmur Lungs: Normal Breath Sounds, No Wheeze, Rales, Rhonchi Neuro: Alert and responsive, No focal deficits noted Abdomen: Soft, Non-Tender Skin: No rashes noted on visualized skin Musculoskeletal: No Chest Wall Tenderness, Other (Right groin access site dressing clean, dry, intact. No hematoma noted. ) Extremities: No Clubbing, No Cyanosis, No Edema, Normal Pulses Results 08/25/18 04:08 08/25/18 04:08 Lab Results Impressions Chest X-Ray 08/24/18 08:20 IMPRESSION: 1. Mild perihilar vascular prominence without overt congestive heart failure D/ / 08/24/2018 09:08:23 Kandace Patel MD / stephy Interpreting Provider: Kandace Patel MD Active Medications Acetaminophen (Tylenol) 650 mg PO Q6HR PRN PRN Reason: Mild Pain/Fever Stop: 02/23/19 10:37 Hydrocodone Bitart/Acetaminophen (Bellevue 5-325 Mg) 1 tab PO Q6HR PRN PRN Reason: Moderate Pain Stop: 02/23/19 10:37 Last Admin: 08/25/18 05:26 Dose: 1 tab Aspirin (Aspirin Ec) 81 mg PO DAILY DELVIN Stop: 02/24/19 09:01 Last Admin: 08/25/18 07:53 Dose: 81 mg Atorvastatin Calcium (Lipitor) 10 mg PO QPM DELVIN Stop: 02/24/19 18:01 Clopidogrel Bisulfate (Plavix) 75 mg PO DAILY DELVIN Stop: 02/24/19 09:01 Last Admin: 08/25/18 07:53 Dose: 75 mg Cyanocobalamin (Vitamin B12) 1,000 mcg IM QMONTH DELVIN Stop: 02/23/19 12:31 Last Admin: 08/24/18 17:46 Dose: 1,000 mcg Dextrose/Water (Dextrose 50% (Syg)) 25 ml IVP AD PRN PRN Reason: Hypoglycemia Stop: 02/24/19 05:56 Diazepam (Valium) 5 mg PO BID PRN PRN Reason: Anxiety Stop: 02/23/19 12:26 Famotidine (Pepcid) 40 mg PO HS PRN PRN Reason: Heartburn Fluocinonide (Lidex) 1 appl TP TID [facility] PRN Reason: Protocol Stop: 02/23/19 15:01 Last Admin: 08/25/18 07:55 Dose: Not Given Folic Acid (Folic Acid) 1 mg PO DAILY [facility] Stop: 02/24/19 09:01 Last Admin: 08/25/18 07:54 Dose: 1 mg Glucagon (Glucagen) 1 mg IM ONCE PRN PRN Reason: Hypoglycemia Stop: 02/23/19 11:12 Glucose (Gluctose) 15 gm PO ONCE PRN PRN Reason: Hypoglycemia Stop: 02/24/19 05:56 Glucose (Gluctose) 30 gm PO ONCE PRN PRN Reason: Hypoglycemia Stop: 02/24/19 05:56 Nitroglycerin (Nitroglycerin Premix 25 Mg/250 Ml) 25 mg in 250 mls @ 12 mls/hr IVC .[id number] DELVIN; 20 MCG/MIN PRN Reason: Protocol Stop: 02/23/19 08:31 Last Admin: 08/25/18 05:19 Dose: Not Given Dextrose (Dextrose 5%) 1,000 mls @ 100 mls/hr IVC .Q10H PRN PRN Reason: HYPOGLYCEMIA Stop: 02/24/19 05:56 Insulin Human Lispro (Humalog) 0 units SQ HS [facility] PRN Reason: Protocol Stop: 02/24/19 21:01 Insulin Human Lispro (Humalog) 0 units SQ TIDAC [facility] PRN Reason: Protocol Stop: 02/24/19 07:31 Last Admin: 08/25/18 08:24 Dose: 4 units Levothyroxine Sodium (Synthroid) 150 mcg PO DAILY@0630 [facility] Stop: 02/24/19 06:31 Last Admin: 08/25/18 05:26 Dose: 150 mcg Lisinopril (Zestril) 2.5 mg PO DAILY [facility] Stop: 02/24/19 09:01 Last Admin: 08/25/18 07:54 Dose: 2.5 mg Metoprolol Succinate (Toprol Xl) 25 mg PO BID [facility] Stop: 02/23/19 21:01 Last Admin: 08/25/18 07:54 Dose: 25 mg Naloxone HCl (Narcan) 0.4 mg IVP Q2MIN PRN PRN Reason: SEE COMMENTS Stop: 02/23/19 10:37 Oxycodone HCl (Roxicodone) 10 mg PO Q6HR PRN PRN Reason: Severe Pain Stop: 02/23/19 10:37 Last Admin: 08/25/18 10:45 Dose: 10 mg Triamterene/HCTZ (Dyazide) 1 each PO DAILY DELVIN Stop: 02/24/19 09:01 Last Admin: 08/25/18 07:53 Dose: 1 each Laboratory Tests 08/24/18 08/24/18 08/25/18 08:41 08:41 04:08 Hgb 9.2 L 8.4 L Creatinine Troponin I < 0.03 08/25/18 04:08 Hgb Creatinine 0.95 Troponin I Laboratory Tests 08/24/18 08/24/18 14:19 20:30 Troponin I 0.52 H* 22.17 H* - Imaging and Cardiology Chest Xray: report reviewed Echo: pending, report reviewed Cardiac cath: report reviewed - EKG Interpretation EKG results cardiology: other (Telemetry reviewed with average HR previous 12 hours noted to be 92, SR. PVCs and PACs noted.) Consult Discharge Plan - Plan Referrals: Carlos Enrique Sanchez Jr, MD [Primary Care Provider] - 09/01/18 2:30 pm (Appointment will be with Flower Marrufo..If you are unable to make it to the appointment please call and reschedule the appointment. Thank You)
[2018-08-25] MEDS: *HR* Ticagrelor 90 MG TABLET PO SCH (20:35)
[2018-08-25] MEDS: Apixaban 5 MG TABLET PO SCH (20:35)
[2018-08-26] MEDS: Insulin LISPRO 300 UNITS/3 ML VIAL SQ SCH ×4 (00:07→21:43)
[2018-08-26] MEDS: FluocinoNIDE 0.05% CRM 15 GM TUBE TP SCH ×3 (00:59→15:21)
[2018-08-26] MEDS: *HR* OxyCODONE Immed Rel 5 MG TABLET PO PRN ×3 (02:20→21:40)
[2018-08-26 04:31] LABS: Basophils % 0.4 %; Eosinophils # 0.2 K/mcL (0.0-0.6); Eosinophils % 2.3 %; Hematocrit 24.5 % (35.3-44.9); Hemoglobin 7.8 g/dL (11.5-15.4); Immature Granulocytes % 0.3 % (0-4); Lymphocytes % 13.3 %; Mean Corpuscular HGB Conc 31.8 g/dL (31.6-35.5); Mean Corpuscular Hemoglobin 28.7 pg (28.0-33.3); Mean Corpuscular Volume 90.1 fL (83.0-100.0); Mean Platelet Volume 10.6 fL (9.4-12.4); Monocytes # 0.5 K/mcL (0.0-1.3); Monocytes % 6.4 %; Neutrophils # 5.8 K/mcL (1.6-8.9); Platelet Count 123 K/mcL (140-400); Red Blood Count 2.72 M/mcL (3.82-4.97); Red Cell Distribution Width 14.5 % (11.5-14.5); Segmented Neutrophils % 77.3 %
[2018-08-26 04:50] LABS: Calcium 8.6 mg/dL (8.6-10.3)
[2018-08-26] MEDS: Apixaban 5 MG TABLET PO SCH ×2 (08:26→21:41)
[2018-08-26] MEDS: Aspirin Enteric Coated 81 MG Tablet PO SCH (08:26)
[2018-08-26] MEDS: *HR* Ticagrelor 90 MG TABLET PO SCH ×2 (08:27→21:42)
[2018-08-26] MEDS: Folic Acid 1 MG TABLET PO SCH (08:27)
[2018-08-26] MEDS: Metoprolol XL (24 HR) Succ 25 MG TAB.ER.24H PO SCH ×2 (08:27→21:41)
[2018-08-26] MEDS: Nitroglycerin 25 MG/250 ML INFUS..BTL IVC SCH (09:32)
--- NOTE | 2018-08-26 10:35 | Internal Med Progress Note ---
Hospitalist Progress Note - Encounter Date of Encounter: 08/26/18 Time of Encounter: 10:34 - Subjective Interval History: 73 F with PMH of CAD, admitted and being managed for unstable angina She is s/p LHC10/7 with VAIBHAV placement She is seen and examined at the bedside this a.m, chest pain free Complained of SOB overnight, has new crackles on chest exam, She is complaining of being on brilinta as she did not tolerate it in last admission Also Hb and PLT downtrending, patient is on IVF, discontinue CXR requested, showed mild pulmonary vascular congestion We will repeat HB p.m , as patient is itching to be discharged home today, type and screen scheduled - Exam Vitals: Temp Pulse Resp BP Pulse Ox 98.9 F 94 18 122/75 93 08/26/18 07:28 08/26/18 07:28 08/26/18 07:28 08/26/18 07:28 08/26/18 07:28 Exam: General: Alert and oriented, not in acute distress. HEENT:EOM, pupils equal, round and reactive. Cardiovascular:Normal S1 & S2, No JVD. Pulse regular. No chest wall tenderness Lungs: r lung crackles Abdomen:Soft, non-tender, no rigidity. Extremities:No deformity or swelling Neurological:Normal cognition and motor skills. Non-focal Skin:Normal color, no rash, no lesions. Pulses:Carotid and radial pulses normal +2. : cath ite clean and dry, no hematoma - Assessment and Plan (1) Paroxysmal a-fib Current Visit: Yes Status: Chronic Assessment and Plan: Currently in normal sinus rhythm Continue BB, eliquis Continue to monitor PLT and Hb (2) Diabetes mellitus Current Visit: Yes Status: Chronic Assessment and Plan: On Glipizide and metformin at home at hold, FS ACHS Low-dose sliding scale coverage Add levemir, low dose (3) Hypertension Current Visit: Yes Status: Chronic Assessment and Plan: continue home meds (4) DVT prophylaxis Current Visit: Yes Status: Acute Assessment and Plan: on Eliquis,continue same (5) Unstable angina pectoris Current Visit: Yes Status: Acute Assessment and Plan: Old records from May 2018 reviewed. Recent history of STEMI status post PCI in May 2018 Presented with recurrent chest pain that is similar to her prior presentation Peak trop 22, EKG shows some T-wave inversions in lateral leads s/p LHC with PCI placement ECHO noted, EF preserved Patient chest pain free COntinue ASA, brilinta, BB, ACEI (6) Thrombocytopenia Current Visit: Yes Status: Acute Assessment and Plan: PLT count today initialli 123, repeat CBC p.m showed PLT count of 146 Continue to monitor CBC (7) Anemia Current Visit: Yes Status: Acute Assessment and Plan: Acute on chronic Hb on presentation 9.2 Hb today 7.4 No obvious source of bleeding Patient is on ASA, Eliquis, brilinta Type and screen MOnitor HB q12h - Time Spent with Patient Total time spent is greater than 50% in coordination of care (as documented) at patient's floor/unit and/or counseling patient: Plan of Care Discussed with: patient Internal Medicine: Result - Labs CBC & Chem 7: 08/26/18 14:06 08/26/18 04:21 Consult Discharge Plan - Plan Referrals: Carlos Enrique Sanchez Jr, MD [Primary Care Provider] - 09/01/18 2:30 pm (Appointment will be with Flower Marrufo..If you are unable to make it to the appointment please call and reschedule the appointment. Thank You) (2) Diabetes mellitus Qualifiers: Diabetes mellitus type: type 2 Diabetes mellitus half-way insulin use: unspecified half-way insulin use status Diabetes mellitus complication status : without complication Qualified Code(s): E11.9 - Type 2 diabetes mellitus without complications (3) Hypertension Qualifiers: Hypertension type: essential hypertension Qualified Code(s): I10 - Essential (primary) hypertension (7) Anemia Qualifiers: Anemia type: unspecified type Qualified Code(s): D64.9 - Anemia, unspecified
--- NOTE | 2018-08-26 11:06 | Cardiology Progress Note ---
Date of Encounter: 08/26/18 Time of Encounter: 11:02 Assessment and Plan (1) Paroxysmal a-fib Current Visit: Yes Status: Chronic Per cardiology:-Known PAF. -ON BB. -HR controlled, in NSR, -have resumed eliquis for anticoagulation as primary stroke risk reduction for PAF (2) NSTEMI (non-ST elevated myocardial infarction) Current Visit: Yes Status: Acute Per cardiology: -NSTEMI with peak troponin 22. 17. Trial Brillinta, pt reports some shortness of breath last pm, would like to continue on Brillinta, thinks she can tolerate for now, likely shortness of breath will resolve within a week if she continues to take, has slightly improved efficacy over Plavix, especially in light of thrombosis of distal RCA while on Plavix. Pt is ambulatory without complaint, CXR pending, if negative would consider discharge today, follow up in office in seven to ten days. (3) Shortness of breath Current Visit: Yes Status: Acute Multifactorial, as above, await results of chest xray, monitor clincally on Brillinta. Discussion w patient/family: The assessment and plan as outlined above was discussed with the patient and/or family members who expressed understanding and agreement. All questions were answered. Thank you for involving us in the care of your patient. Please call with any questions. Subjective Principal diagnosis: NSTEMI Interval history: PT reports chest pain resolved following PCI with VAIBHAV RCA, POBA for mild D1 in stent restenosis. She is ambulatory in her room without provocation of symptoms. She notes some shortness of breath lying flat last pm, improved with sitting up. Symptoms improved overnight. She attributes shortness of breath to Brillinta, although has only had one dose. Objective General: Conversant HEENT: Atraumatic Neck: No JVD, Normal carotid pulses Cardiac: Reg Rate and Rhythm, Normal S1 and S2 Lungs: Normal Breath Sounds, Other (mild basilar crackles, improve with cough. ) Neuro: Alert and responsive, No focal deficits noted Abdomen: Soft, Non-Tender Skin: No rashes noted on visualized skin Extremities: No Edema Results 08/26/18 04:21 08/26/18 04:21 Consult Discharge Plan - Plan Referrals: Carlos Enrique Sanchez Jr, MD [Primary Care Provider] - 09/01/18 2:30 pm (Appointment will be with Flower Marrufo..If you are unable to make it to the appointment please call and reschedule the appointment. Thank You)
[2018-08-26 14:41] LABS: Basophils % 0.3 %; Eosinophils # 0.2 K/mcL (0.0-0.6); Eosinophils % 2.2 %; Hematocrit 23.2 % (35.3-44.9); Hemoglobin 7.4 g/dL (11.5-15.4); Immature Granulocytes % 0.3 % (0-4); Lymphocytes % 12.9 %; Mean Corpuscular HGB Conc 31.9 g/dL (31.6-35.5); Mean Corpuscular Hemoglobin 28.4 pg (28.0-33.3); Mean Corpuscular Volume 88.9 fL (83.0-100.0); Monocytes # 0.5 K/mcL (0.0-1.3); Monocytes % 6.7 %; Neutrophils # 5.7 K/mcL (1.6-8.9); Platelet Count 146 K/mcL (140-400); Red Blood Count 2.61 M/mcL (3.82-4.97); Red Cell Distribution Width 14.5 % (11.5-14.5); Segmented Neutrophils % 77.6 %
--- NOTE | 2018-08-26 17:47 | Electrocardiograph Report ---
[address] [address] Test Date: 2018-08-24 Pat Name: Bisi Espinosa Department: EXAM2 Room: 2NE16 Gender: F Accounting Officer: : 1945 Requested By: Soniya See Order Number: [id number] Reading MD: Paulo Elias Measurements Intervals [place] Rate: 68 P: 28 PA: 158 QRS: -45 QRSD: 130 T: 104 QT: 406 QTc: 432 Interpretive Statements Sinus rhythm IVCD Left anterior fasicular block Poor R wave progression Lateral ST-T changes possibly due to ischemia Electronically Signed On 08-26-2018 17:45:39 EDT by Paulo Elias
--- NOTE | 2018-08-26 17:48 | Electrocardiograph Report ---
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
--- NOTE | 2018-08-26 17:51 | Electrocardiograph Report ---
[place] [address] Test Date: 2018-08-24 Pat Name: Bisi Espinosa Department: EXAM2 Room: 2NE16 Gender: F Manager Performance Improvement: : 1945 Requested By: Soniya See Order Number: [id number] Reading MD: Paulo Elias Measurements Intervals [place] Rate: 69 P: 23 NE: 157 QRS: -40 QRSD: 131 T: 119 QT: 416 QTc: 446 Interpretive Statements Sinus rhythm IVCD Left anterior fascicular block Poor R wave progression Lateral ST-T changes possibly due to ischemia Electronically Signed On 08-26-2018 17:49:11 EDT by Paulo Elias
--- NOTE | 2018-08-26 17:53 | Electrocardiograph Report ---
[address] [address] Test Date: 2018-08-24 Pat Name: Bisi Espinosa Department: EXAM2 Room: 2NE16 Gender: F Manager Furniture: : 1945 Requested By: Alexys Walter Order Number: [id number] Reading MD: Paulo Elias Measurements Intervals [place] Rate: 61 P: 24 CT: 161 QRS: -40 QRSD: 126 T: 123 QT: 417 QTc: 420 Interpretive Statements SINUS RHYTHM IVCD LEFT AXIS DEVIATION LATERAL ST-T CHANGES POSSIBLY DUE TO ISCHEMIA POOR R WAVE PROGRESSION Electronically Signed On 08-26-2018 17:52:16 EDT by Paulo Elias
--- NOTE | 2018-08-26 18:13 | Electrocardiograph Report ---
[address] [place] [address] Test Date: 2018-08-24 Pat Name: Bisi Espinosa Department: 111 Room: 2NE16 Gender: F Building Carpenter: [id number] : 1945 Requested By: Meghan Osei Order Number: [id number] Reading MD: Paulo Elias Measurements Intervals [place] Rate: 84 P: 8 NV: 155 QRS: -47 QRSD: 130 T: 118 QT: 374 QTc: 415 Interpretive Statements SINUS RHYTHM LEFT ANTERIOR FASCICULAR BLOCK POOR R WAVE PROGRESSION PROBABLE LATERAL MYOCARDIAL INFARCTION, OF INDETERMINATE AGE Electronically Signed On 08-26-2018 18:11:26 EDT by Paulo Elias
--- NOTE | 2018-08-26 18:22 | Electrocardiograph Report ---
[place] [address] Test Date: 2018-08-24 Pat Name: Bisi Esipnosa Department: 110 Room: 2NE16 Gender: F Bush Hog Operator: DAE : 1945 Requested By: Meghan Osei Order Number: [id number] Reading MD: Paulo Elias Measurements Intervals [place] Rate: 89 P: 101 NC: 167 QRS: -49 QRSD: 138 T: 86 QT: 379 QTc: 425 Interpretive Statements SINUS RHYTHM INTRAVENTRICULAR CONDUCTION DELAY LEFT ANTERIOR FASCICULAR BLOCK POOR R WAVE PROGRESSION Electronically Signed On 08-26-2018 18:20:58 EDT by Paulo Elias
[2018-08-26] MEDS: Insulin DETEMIR 100 UNIT/ML X5UNITS SQ SCH (21:42)
[2018-08-27] MEDS: FluocinoNIDE 0.05% CRM 15 GM TUBE TP SCH ×4 (00:38→21:33)
[2018-08-27] MEDS: *HR* OxyCODONE Immed Rel 5 MG TABLET PO PRN ×3 (04:36→18:23)
[2018-08-27 05:36] LABS: Basophils % 0.3 %; Eosinophils # 0.3 K/mcL (0.0-0.6); Eosinophils % 3.5 %; Hematocrit 24.2 % (35.3-44.9); Hemoglobin 7.5 g/dL (11.5-15.4); Immature Granulocytes % 0.4 % (0-4); Lymphocytes # 1.2 K/mcL (0.6-4.6); Lymphocytes % 15.6 %; Mean Corpuscular Hemoglobin 28.1 pg (28.0-33.3); Mean Corpuscular Volume 90.6 fL (83.0-100.0); Monocytes # 0.6 K/mcL (0.0-1.3); Monocytes % 7.2 %; Neutrophils # 5.7 K/mcL (1.6-8.9); Platelet Count 138 K/mcL (140-400); Red Blood Count 2.67 M/mcL (3.82-4.97); Red Cell Distribution Width 14.5 % (11.5-14.5)
[2018-08-27] MEDS: Insulin LISPRO 300 UNITS/3 ML VIAL SQ SCH ×5 (08:09→21:07)
[2018-08-27] MEDS: Metoprolol XL (24 HR) Succ 25 MG TAB.ER.24H PO SCH ×2 (08:16→21:06)
[2018-08-27] MEDS: *HR* Ticagrelor 90 MG TABLET PO SCH ×2 (08:16→21:06)
[2018-08-27] MEDS: Aspirin Enteric Coated 81 MG Tablet PO SCH (08:16)
[2018-08-27] MEDS: Folic Acid 1 MG TABLET PO SCH (08:16)
[2018-08-27 09:31] LABS: % Iron Saturation 4 % (15-50); Iron 10 mcg/dL (50-170); Transferrin 184 mg/dL (203-362)
[2018-08-27 09:57] LABS: Vitamin B12 1119 pg/mL (250-1100)
[2018-08-27 10:12] LABS: Folate > 22.3 ng/mL (3.0-16.0)
--- NOTE | 2018-08-27 11:04 | Internal Med Progress Note ---
Hospitalist Progress Note - Encounter Date of Encounter: 08/27/18 Time of Encounter: 11:03 - Subjective Interval History: 73 F with PMH of CAD, admitted and being managed for unstable angina She is s/p LHC10/7 with VAIBHAV placement She is seen and examined at the bedside this a.m, chest pain free Hb stable at 7.5, but patient's baseline is 9-10 She is on ASA, Brilinta and Eliquis She denies any bleeding from orifices, but thinks she might have hemorhoids (is why she stopped taking ASA during the last discharge home) She also has a hx of celiac disease, and pernicious anemia. Iron levels checked this a.m is low She states she might have a diagnosis of gastritis - Exam Vitals: Temp Pulse Resp BP Pulse Ox 98.7 F 87 18 94/65 97 08/27/18 07:02 08/27/18 11:00 08/27/18 11:00 08/27/18 11:00 08/27/18 11:00 Exam: General: Alert and oriented, not in acute distress. HEENT:EOM, pupils equal, round and reactive. Cardiovascular:Normal S1 & S2, No JVD. Pulse regular. No chest wall tenderness Lungs: r lung crackles Abdomen:Soft, non-tender, no rigidity. Extremities:No deformity or swelling Neurological:Normal cognition and motor skills. Non-focal Skin:Normal color, no rash, no lesions. Pulses:Carotid and radial pulses normal +2. : no hematoma - Assessment and Plan (1) Paroxysmal a-fib Current Visit: Yes Status: Chronic Assessment and Plan: Currently in normal sinus rhythm Continue BB, eliquis Continue to monitor PLT and Hb (2) Diabetes mellitus Current Visit: Yes Status: Chronic Assessment and Plan: On Glipizide and metformin at home at hold, FS ACHS Low-dose sliding scale coverage Continue levemir (3) Hypertension Current Visit: Yes Status: Chronic Assessment and Plan: continue home meds (4) DVT prophylaxis Current Visit: Yes Status: Acute Assessment and Plan: on Eliquis,continue same (5) Unstable angina pectoris Current Visit: Yes Status: Acute Assessment and Plan: Old records from May 2018 reviewed. Recent history of STEMI status post PCI in May 2018 Presented with recurrent chest pain that is similar to her prior presentation Peak trop 22, EKG shows some T-wave inversions in lateral leads s/p LHC with PCI placement ECHO noted, EF preserved Patient chest pain free COntinue ASA, brilinta, BB, ACEI (6) Thrombocytopenia Current Visit: Yes Status: Acute Assessment and Plan: PLT count 08/26 initially 123, repeat CBC p.m showed PLT count of 146 This a.m PLT 138 Continue to monitor CBC (7) Anemia Current Visit: Yes Status: Acute Assessment and Plan: Acute on chronic Hb on presentation 9.2 Hb today 7.5 No obvious source of bleeding Patient is on ASA, Eliquis, brilinta Type and screen MOnitor HB q12h Obtain FOBT STAT Iron studies show iron of 10, patient does have hx of pernicious anemia - Time Spent with Patient Total time spent is greater than 50% in coordination of care (as documented) at patient's floor/unit and/or counseling patient: Plan of Care Discussed with: patient Internal Medicine: Result - Labs CBC & Chem 7: 08/27/18 04:29 08/26/18 04:21 Labs: Short CBC 08/26/18 08/27/18 Range/Units 14:06 04:29 WBC 7.4 7.8 (4.3-11.1) K/mcL Hgb 7.4 L 7.5 L (11.5-15.4) g/dL Hct 23.2 L 24.2 L (35.3-44.9) % Plt Count 146 138 L (140-400) K/mcL Neutrophils # 5.7 5.7 (1.6-8.9) K/mcL Consult Discharge Plan - Plan Referrals: Carlos Enrique Sanchez Jr, MD [Primary Care Provider] - 09/01/18 2:30 pm (Appointment will be with Flower Marrufo..If you are unable to make it to the appointment please call and reschedule the appointment. 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
[2018-08-27] MEDS: Apixaban 5 MG TABLET PO SCH ×2 (12:03→21:06)
[2018-08-27] MEDS: Pantoprazole 40 MG VIAL IVP SCH (16:43)
[2018-08-27] MEDS: Insulin DETEMIR 100 UNIT/ML X5UNITS SQ SCH (21:25)
[2018-08-28] MEDS: *HR* OxyCODONE Immed Rel 5 MG TABLET PO PRN ×2 (03:04→17:13)
[2018-08-28 03:39] LABS: Basophils % 0.4 %; Eosinophils # 0.4 K/mcL (0.0-0.6); Eosinophils % 4.6 %; Hematocrit 21.7 % (35.3-44.9); Hemoglobin 6.8 g/dL (11.5-15.4); Immature Granulocytes % 0.4 % (0-4); Lymphocytes # 1.3 K/mcL (0.6-4.6); Lymphocytes % 16.6 %; Mean Corpuscular HGB Conc 31.3 g/dL (31.6-35.5); Mean Corpuscular Hemoglobin 27.9 pg (28.0-33.3); Mean Corpuscular Volume 88.9 fL (83.0-100.0); Mean Platelet Volume 11.2 fL (9.4-12.4); Monocytes # 0.6 K/mcL (0.0-1.3); Monocytes % 7.8 %; Neutrophils # 5.6 K/mcL (1.6-8.9); Platelet Count 145 K/mcL (140-400); Red Blood Count 2.44 M/mcL (3.82-4.97); Red Cell Distribution Width 14.2 % (11.5-14.5); Segmented Neutrophils % 70.2 %
[2018-08-28 03:58] LABS: Calcium 8.3 mg/dL (8.6-10.3); Potassium 4.2 mEq/L (3.5-5.1)
[2018-08-28] MEDS: Pantoprazole 40 MG VIAL IVP SCH ×2 (06:07→20:13)
[2018-08-28] MEDS: Nitroglycerin 25 MG/250 ML INFUS..BTL IVC SCH (07:13)
[2018-08-28] MEDS: Insulin LISPRO 300 UNITS/3 ML VIAL SQ SCH ×4 (07:58→20:45)
[2018-08-28] MEDS: Folic Acid 1 MG TABLET PO SCH (07:59)
[2018-08-28] MEDS: Apixaban 5 MG TABLET PO SCH (07:59)
[2018-08-28] MEDS: Aspirin Enteric Coated 81 MG Tablet PO SCH (07:59)
[2018-08-28] MEDS: *HR* Ticagrelor 90 MG TABLET PO SCH ×2 (07:59→20:14)
[2018-08-28] MEDS: Metoprolol XL (24 HR) Succ 25 MG TAB.ER.24H PO SCH ×2 (07:59→20:14)
[2018-08-28] MEDS: FluocinoNIDE 0.05% CRM 15 GM TUBE TP SCH ×3 (08:11→23:38)
[2018-08-28] MEDS ORDERED: 0.9 % Sodium Chloride 1,000 ML IVC SCH (08:30)
--- NOTE | 2018-08-28 09:29 | Gastroenterology Consult Note ---
Date of Encounter: 08/28/18 Time of Encounter: 09:29 - Assessment and plan (1) GIB (gastrointestinal bleeding) Current Visit: Yes Status: Suspected Assessment and plan: Concerned for G.I. bleed in setting of multiple anticoagulant medications. s/p [facility] 08/24/2018 with VAIBHAV taking aspirin and Brilinta. History of known atrial fibrillation taking Eliquis. Hemoglobin 6.8, was 9.2 at admission (baseline 11), hematocrit 21.7 platelets 145, BUN 30 Patient denies melena, hematochezia, hematemesis at this time. However, prior to admission she had been on aspirin but it was discontinued due to bright red blood on 12 paper which she attributed to hemorrhoids. Patient has been ordered 2 units PRBC no obvious active bleeding. Plan: -patient to go for EGD today -NPO -continue holding Eliquis -continue IV Protonix b.i.d. -monitor H&H -monitor for bleeding Qualifiers: GI bleed type/associated pathology: unspecified gastrointestinal hemorrhage type Qualified Code(s): K92.2 - Gastrointestinal hemorrhage, unspecified (2) Anemia Current Visit: Yes Status: Acute Assessment and plan: Acute on chronic Anemia in setting of possible G.I. bleed hemoglobin 6.8 (baseline 11), hematocrit 21.7, MCV 88.9 -plan as above Qualifiers: Anemia type: unspecified type Qualified Code(s): D64.9 - Anemia, unspecified (3) NSTEMI (non-ST elevated myocardial infarction) Current Visit: Yes Status: Acute Assessment and plan: s/p 08/24/2018 [facility] with VAIBHAV taking aspirin and Brilinta -management per cardiology and primary team - Time Spent With Patient Total time spent is greater than 50% in coordination of care (as documented) at patient's floor/unit and/or counseling patient: GI History of Present Illness - Data of Consult Consult date: 08/28/18 Requesting Physician: Francisco Martinez MD - Consult Narrative Reason for consult: G.I. bleed History of present illness: Ms. Espinosa is a 73 year old female with past medical history of atrial fibrillatio n, diabetes, CAD who presented to [facility] due to chest pain and is status post left heart catheterization 08/24/2018 with VAIBHAV placement. She was started on aspirin and Brilinta. She was continued on her home eloquence for atrial fibrillation. Gastroenterology was consulted due to concern of G.I. bleed as hemoglobin decreased to 6.8 from 9.2. Upon examination of the patient she reported that she has never had a G.I. bleed before and has never had peptic ulcer disease. She reported that she occasionally had bright red blood on toilet paper which she attributes to hemorrhoids but not recently, so her storm chaser stopped her aspirin. She denies abdominal pain, nausea, vomiting, melena, hematochezia, hematemesis. She has a family history of colon cancer with her mother diagnosed at 49yo. She denies alcohol, smoking, drug use. 09/11/2017 colonoscopy: 6 polyps that were resected. Diverticulosis in the sigmoid colon. Colonoscopy: 09/11/2017 Past Med Surg Social Fam HX - Past Medical History Attestation: Yes The following information was validated with the patient. Source: patient Medical history: atrial fibrillation, cancer, diabetes, fibromyalgia, GERD, hypertension, thyroid disease, other Additional medical history: celiac sprue Psychiatric history: anxiety, depression - Past Surgical History Surgical History: hysterectomy Additional surgical history: toe surgery - Social History Smoking Status: Never smoker Smokeless Tobacco Status: No Alcohol use: none Drug use: none - Family History Father Living Status: Mother Living Status: - Gastrointestinal Gastrointestinal: Absent: abdominal pain, diarrhea, dyspepsia, hematemesis, hematochezia, melena, nausea, vomiting - Constitutional Constitutional: no fatigue, no fever(s), no weight loss - EENT Nose, mouth and throat: Absent: dysphagia, hoarseness - Cardiovascular Cardiovascular ROS: Present: chest pain. Absent: palpitations - Respiratory Respiratory IM: Absent: cough, dyspnea - Genitourinary Genitourinary: Absent: change in color - Neurological ROS Neurological GI: Absent: confusion, dizziness - Hematologic/Lymphatic Hematologic/Lymphatic pediatric: Present: easy bleeding - Musculoskeletal Musculoskeletal ROS GI: Absent: back pain - Integumentary Integumentary GI: Absent: jaundice, pruritis, rash - Endocrine Endocrine IM: Absent: fatigue - Constitutional Vitals: Temp Pulse Resp BP Pulse Ox 98.4 F 81 16 90/51 92 08/28/18 07:13 08/28/18 07:13 08/28/18 07:13 08/28/18 07:13 08/28/18 07:13 Exam: Gen.: Vitals noted. No acute distress. AAOx3 HEENT: oropharynx clear, Normocephalic, atraumatic Neck: Supple. No adenopathy. Cardiac: irregular, no murmur, +S1/S2 Pulmonary: CTA bilaterally, no wheezes, rales or rhonchi, equal chest expansion Abdomen: soft, nontender, Bowel sounds noted, no guarding MSK: ROM intact, no joint swelling noted Extremities: no BLE edema, nontender calf, no cyanosis or clubbing Neuro: A&Ox3, moves all extremities, no focal deficits Psych: Appropriate mood and behavior Results - Labs CBC & Chem 7: 08/28/18 02:56 08/28/18 02:56 Labs: Last Result Calcium 8.3 mg/dL (8.6-10.3) L 08/28/18 02:56 Iron 10 mcg/dL (50-170) L 08/27/18 08:50 % Saturation 4 % (15-50) L 08/27/18 08:50 Transferrin 184 mg/dL (203-362) L 08/27/18 08:50 Troponin I 22.17 ng/mL (< 0.04) H* 08/24/18 20:30 Vitamin B12 1119 pg/mL (250-1100) H 08/27/18 08:50 Folate > 22.3 ng/mL (3.0-16.0) H 08/27/18 08:50 Entire Visit Hgb 6.8 g/dL (11.5-15.4) L 08/28/18 02:56 Hct 21.7 % (35.3-44.9) L 08/28/18 02:56 Folate > 22.3 ng/mL (3.0-16.0) H 08/27/18 08:50 Consult Discharge Plan - Plan Referrals: Carlos Enrique Sanchez Jr, MD [Primary Care Provider] - 09/01/18 2:30 pm (Appointment will be with Flower Marrufo..If you are unable to make it to the appointment please call and reschedule the appointment. Thank You)
--- NOTE | 2018-08-28 10:03 | Internal Med Progress Note ---
Hospitalist Progress Note - Encounter Date of Encounter: 08/28/18 Time of Encounter: 10:03 - Subjective Interval History: 73 F with PMH of CAD, admitted and being managed for unstable angina She is s/p LHC10/7 with VAIBHAV placement She has been having progressively worsening anemia since arrival Hb this a.m now 6.8, patient is on ASA and Brilinta, with VAIBHAV placed 06/2018 and on 08/26/18 She is on eliquis for Afib, she was started on PPI on 08/27 for suspected GIB She is yet to have a BM since admission despite being on stool softeners I have consulted GI for further evaluation She also has DENNIS with elevated BUN, quintenley as a result of GIB - Exam Vitals: Temp Pulse Resp BP Pulse Ox 98.4 F 81 16 90/51 92 08/28/18 07:13 08/28/18 07:13 08/28/18 07:13 08/28/18 07:13 08/28/18 07:13 Exam: General: Alert and oriented, not in acute distress. HEENT:EOM, pupils equal, round and reactive. Cardiovascular:Normal S1 & S2, No JVD. Pulse regular. No chest wall tenderness Lungs: CTAB Abdomen:Soft, non-tender, no rigidity. Extremities:No deformity or swelling Neurological:Normal cognition and motor skills. Non-focal Skin:Normal color, no rash, no lesions. NO bruises Pulses:Carotid and radial pulses normal +2. : no hematoma - Assessment and Plan (1) Paroxysmal a-fib Current Visit: Yes Status: Chronic Assessment and Plan: Currently in normal sinus rhythm Continue BB Hold Eliquis (2) Diabetes mellitus Current Visit: Yes Status: Chronic Assessment and Plan: On Glipizide and metformin at home at hold, FS ACHS Low-dose sliding scale coverage Continue levemir (3) Hypertension Current Visit: Yes Status: Chronic Assessment and Plan: continue home meds, blood pressure is soft, she needs BB for HR control Will hold Lisinopril and HCTZ-Triamterene at this time (4) DVT prophylaxis Current Visit: Yes Status: Acute Assessment and Plan: SCDs She now has suspected GIB (5) Unstable angina pectoris Current Visit: Yes Status: Acute Assessment and Plan: Old records from May 2018 reviewed. Recent history of STEMI status post PCI in May 2018 Presented with recurrent chest pain that is similar to her prior presentation Peak trop 22, EKG shows some T-wave inversions in lateral leads s/p LHC 08/24 with PCI placement ECHO noted, EF preserved Patient chest pain free COntinue ASA, brilinta, BB, ACEI Patient with GIB, cardiology will be reconsulted depending of endoscopy findings (6) Thrombocytopenia Current Visit: Yes Status: Acute Assessment and Plan: PLT stable now PLT count 08/26 initially 123, repeat CBC p.m showed PLT count of 146 Continue to monitor CBC (7) Anemia Current Visit: Yes Status: Acute Assessment and Plan: Acute on chronic Hb on presentation 9.2 Hb today 6.8 Suspect GIB Patient with borderline low blood pressure Patient is on ASA, Eliquis, brilinta 2 units RBCS ordered stat GI consulted Placed NPO Continue IV PPI BID Rpt Hb this p.m after transfusion (8) GIB (gastrointestinal bleeding) Current Visit: Yes Status: Suspected Assessment and Plan: suspected GI following Continue blood transfusion, continue to monitor HB - Time Spent with Patient Total time spent is greater than 50% in coordination of care (as documented) at patient's floor/unit and/or counseling patient: Plan of Care Discussed with: patient Internal Medicine: Result - Labs CBC & Chem 7: 08/28/18 02:56 08/28/18 02:56 Labs: Short CBC 08/28/18 Range/Units 02:56 WBC 7.9 (4.3-11.1) K/mcL Hgb 6.8 L (11.5-15.4) g/dL Hct 21.7 L (35.3-44.9) % Plt Count 145 (140-400) K/mcL Neutrophils # 5.6 (1.6-8.9) K/mcL BMP 08/28/18 02:56 Sodium 132 L Potassium 4.2 Chloride 100 Carbon Dioxide 23 BUN 30 H Creatinine 1.40 H Glucose 179 H Calcium 8.3 L Consult Discharge Plan - Plan Referrals: Carlos Enrique Sanchez Jr, MD [Primary Care Provider] - 09/01/18 2:30 pm (Appointment will be with Flower Marrufo..If you are unable to make it to the appointment please call and reschedule the appointment. Thank You) (2) Diabetes mellitus Qualifiers: Diabetes mellitus type: type 2 Diabetes mellitus usp insulin use: unspecified long term acute care registered nurse insulin use status Diabetes mellitus complication status : without complication Qualified Code(s): E11.9 - Type 2 diabetes mellitus without complications (3) Hypertension Qualifiers: Hypertension type: essential hypertension Qualified Code(s): I10 - Essential (primary) hypertension (7) Anemia Qualifiers: Anemia type: iron deficiency Iron deficiency anemia type: chronic blood loss Qualified Code(s): D50.0 - Iron deficiency anemia secondary to blood loss ( chronic) (8) GIB (gastrointestinal bleeding) Qualifiers: GI bleed type/associated pathology: unspecified gastrointestinal hemorrhage type Qualified Code(s): K92.2 - Gastrointestinal hemorrhage, unspecified
--- NOTE | 2018-08-28 10:25 | Anesthesia Evaluation PreOp ---
Date of Encounter: 08/28/18 Time of Encounter: 14:01 - Past History Planned Operation: EGD/Colonoscopy Cardiac History: RI (06/02/2018 and 08/24/2018), HTN, Hyperlipidemia, Arrhythmia ( paroxysmal A-Fib), Cardiac Stent (VAIBHAV x 2, last dose of Brilinta 08/28/2018 at 0759) Pulmonary History: Denies Any Significant HX, Snore FAST FOOD MANAGER History: Denies Any Significant HX Other Medical History: Diabetes Type II, Thyroid, GERD, Other (anxiety/ depression, fibromyalgia) Anesthesia History: No Prior Anesthetic Complications, Past Anesthesia Alcohol Use: none Drug use: none Medications and Allergies Apixaban [Eliquis] 5 mg PO BID 06/02/18 [History] Cyanocobalamin (B-12) [Vitamin B12] 1,000 mcg IM QMONTH 06/02/18 [History] Famotidine [Pepcid] 40 mg PO HS PRN 06/02/18 [History] FluocinoNIDE 0.05% CRM [Lidex] 1 appl TP TID PRN 06/02/18 [History] Folic Acid 1 mg PO DAILY 06/02/18 [History] GlipiZIDE [Glipizide ER] 10 mg PO DAILY@1700 06/02/18 [History] Levothyroxine Sodium 150 mcg PO DAILY 06/02/18 [History] Oxycodone HCl 5 mg PO Q6H PRN 06/02/18 [History] Triamterene/HCTZ 37.5/25mg [Dyazide] 0.5 tab PO BID 06/02/18 [History] diazePAM [Valium] 5 mg PO BID PRN 06/02/18 [History] metFORMIN [Glucophage] 1,000 mg PO QAM 06/02/18 [History] Clopidogrel [Plavix] 75 mg PO DAILY #30 tablet 06/06/18 [Rx] Nitroglycerin 0.4 mg SL Q5MIN PRN #15 tab.subl 06/06/18 [Rx] Lisinopril [Lisinopril] 2.5 mg PO DAILY 08/24/18 [History] Rosuvastatin Calcium [Rosuvastatin Calcium] 5 mg PO DAILY 08/24/18 [History] Metformin HCl 500 mg PO DAILY@1700 08/25/18 [History] Metoprolol Succinate [Metoprolol Succinate] 25 mg PO BID 08/25/18 [History] 3 Allergy/AdvReac Type Severity Reaction Status Date / Time amitriptyline AdvReac Seizure Verified 08/25/18 09:09 Amoxicillin [From Amoxil] AdvReac Nausea Verified 08/25/18 09:09 gluten AdvReac Abdominal Verified 08/25/18 09:09 Pain - Meds/Allergy Pre-op Review Medications Reviewed: Yes Allergies Reviewed: Yes Beta Blockers on Current Med List: Yes If Beta Blockers taken, Date/Time (Last Dose taken): 08/28/2018 at 0759 Anesthesia Results - Labs 08/28/18 02:56 08/28/18 02:56 - Imaging EKG: report reviewed (08/24/2018 SINUS RHYTHM LEFT ANTERIOR FASCICULAR BLOCK POOR R WAVE PROGRESSION PROBABLE LATERAL MYOCARDIAL INFARCTION, OF INDETERMINATE AGE) Additional studies: 08/25/2018 Echo Impressions: LVEF 50-55%. Normal LV chamber size, wall thickness and overall function. Mild segmental left ventricular systolic dysfunction. Mild left ventricular diastolic dysfunction. Atypical septal motion consistent with bundle branch block. Normal right ventricular structure and function. Mild mitral regurgitation. No evidence of pulmonary hypertension. 08/24/2018 LEFT HEART CATH PTCA Single Major Vessel Stent w/ PTCA Single Major Vessel PTCA each add'l branch PTCA each add'l branch Indications: Non-Stemi ACS > 24 hrs Impressions: There is severe three vessel coronary artery disease. The left ventricle is normal and has normal contractility EF 55% Patient had successful PTCA/Drug-Eluting Stent placement in the proximal PDA. There is a previous stent in 1st Diagonal with moderate in-stent stenosis that was intervened on.Patient had successful PTCA in the proximal Diagonal 2.Patient had successful PTCA in the proximal RPL.. Recommendations: Optimal medical therapy of patient's disease. Aggressive risk factor modification. 08/13/2018 Stress Impressions: Stress ECG was indeterminate for ischemia due to failure to achieve target heart rate Exercise capacity was poor. Normal hemodynamic response to exercise. No arrhythmias noted with stress. Patient had no chest pain with stress 06/02/2018 Left Heart Cath severe 1 vessel CAD LV is normal and EF 55% had successful PTCA/drug-eluting stent placed in the mid diagonal had successful PTCA in the mid diagonal 2 Recommendations: optimal medical therapy of patient's disease aggressive risk factor modification 06/05/2018 Limited Echo Impressions: LVEF 30-35%. Normal LV chamber size and wall thickness. Severe segmental left ventricular systolic dysfunction. There is no LV thrombus. 01/31/2017 Stress Echo Impressions: Appropriate increase in LVEF with stress. Nondiagnostic ECG due to artifact. Poor exercise capacity (achieving 3 METS) and blunted blood pressure response. No concerning dysrhythmia. No complaints of chest pain. Anesthesia Exam Vital Signs/O2 Sat/Glucose, Most Recent Temp Pulse Resp BP Pulse Ox 98.1 F 89 16 94/52 95 08/28/18 12:50 08/28/18 12:50 08/28/18 12:50 08/28/18 11:11 08/28/18 11:11 Blood Glucose* 217 Height: 5'4''/1.63m Weight: 160 lbs/72.8 kg Pain Scale: 0 Pain Scale Used: Numeric (1 - 10) - HEENT Pupil (Motor): EOMI Mallampati: IV Teeth: Normal Oral Opening: Greater than 3 - FAST FOOD MANAGER LOC: Oriented FAST FOOD MANAGER Motor: Normal RUE, Normal LUE, Normal RLE, Normal LLE, Normal Face FAST FOOD MANAGER Sensory: Normal: RUE, LUE, Face, Deficit: RLE, LLE - Cardiac Rhythm: Regular Murmur: None - Pulmonary Breath Sounds: bilateral Clear Respiratory Effort: Symmetrical Anesthesia Assess/Plan ASA Score: 4 Modified Tru Scale for Level of Consciousness: Cooperative, oriented, and tranquil Anesthetic Plan: MAC Monitoring Plan: Standard Monitors
[2018-08-28] MEDS ORDERED: 0.9 % Sodium Chloride 500 ML ONE ×2 (11:51→16:37)
[2018-08-28] MEDS ORDERED: SODIUM CHLORIDE/NAHCO3/KCL/PEG 4,000 ML SOLN.RECON PO ONE (14:20)
[2018-08-28] MEDS: Insulin DETEMIR 100 UNIT/ML X5UNITS SQ SCH (20:46)
[2018-08-28 22:07] LABS: Mean Corpuscular Hemoglobin 27.4 pg (28.0-33.3); Red Blood Count 3.68 M/mcL (3.82-4.97)
[2018-08-28 22:09] LABS: Basophils % 0.3 %; Eosinophils # 0.2 K/mcL (0.0-0.6); Hematocrit 30.8 % (35.3-44.9); Hemoglobin 10.1 g/dL (11.5-15.4); Immature Granulocytes % 0.3 % (0-4); Lymphocytes # 1.1 K/mcL (0.6-4.6); Lymphocytes % 14.4 %; Mean Corpuscular HGB Conc 32.8 g/dL (31.6-35.5); Mean Corpuscular Volume 83.7 fL (83.0-100.0); Mean Platelet Volume 11.4 fL (9.4-12.4); Monocytes # 0.5 K/mcL (0.0-1.3); Monocytes % 6.6 %; Neutrophils # 5.7 K/mcL (1.6-8.9); Platelet Count 169 K/mcL (140-400); Red Cell Distribution Width 15.1 % (11.5-14.5); Segmented Neutrophils % 75.4 %
[2018-08-29] MEDS: *HR* HYDROcodone/Acet 5/325 mg TABLET PO PRN ×2 (00:07→15:02)
[2018-08-29 04:11] LABS: Basophils % 0.3 %; Eosinophils # 0.3 K/mcL (0.0-0.6); Eosinophils % 4.6 %; Hematocrit 28.6 % (35.3-44.9); Hemoglobin 9.4 g/dL (11.5-15.4); Immature Granulocytes % 0.3 % (0-4); Lymphocytes % 14.4 %; Mean Corpuscular HGB Conc 32.9 g/dL (31.6-35.5); Mean Corpuscular Volume 85.1 fL (83.0-100.0); Mean Platelet Volume 11.1 fL (9.4-12.4); Monocytes # 0.7 K/mcL (0.0-1.3); Monocytes % 9.5 %; Neutrophils # 5.1 K/mcL (1.6-8.9); Platelet Count 157 K/mcL (140-400); Red Blood Count 3.36 M/mcL (3.82-4.97); Red Cell Distribution Width 15.5 % (11.5-14.5); Segmented Neutrophils % 70.9 %
[2018-08-29 04:31] LABS: Calcium 8.8 mg/dL (8.6-10.3); Potassium 4.3 mEq/L (3.5-5.1)
[2018-08-29] MEDS: Metoprolol XL (24 HR) Succ 25 MG TAB.ER.24H PO SCH ×2 (05:14→20:34)
[2018-08-29] MEDS: Pantoprazole 40 MG VIAL IVP SCH ×2 (05:32→18:18)
[2018-08-29] MEDS ORDERED: Propofol 500 MG/50 ML INFUS..BTL ONE (06:52)
[2018-08-29] MEDS ORDERED: Simethicone 40 MG/0.6 ML MLS IR ONE (08:13)
[2018-08-29] MEDS ORDERED: Tetracaine/Benzocaine/Butamben 1 SPRAY AEROSOL MM ONE (08:13)
--- NOTE | 2018-08-29 08:20 | Internal Med Progress Note ---
Hospitalist Progress Note - Encounter Date of Encounter: 08/29/18 Time of Encounter: 17:06 - Exam Vitals: Temp Pulse Resp BP Pulse Ox 97.9 F 86 16 126/72 97 08/29/18 08:06 08/29/18 08:06 08/29/18 08:06 08/29/18 08:06 08/29/18 08:06 Exam: General: Alert and oriented, not in acute distress. HEENT:EOM, pupils equal, round and reactive. Cardiovascular:Normal S1 & S2, No JVD. Pulse regular. No chest wall tenderness Lungs: CTAB Abdomen:Soft, non-tender, no rigidity. Extremities:No deformity or swelling Neurological:Normal cognition and motor skills. Non-focal Skin:Normal color, no rash, no lesions. NO bruises Pulses:Carotid and radial pulses normal +2. : no hematoma - Assessment and Plan (1) Anemia Current Visit: Yes Status: Acute Assessment and Plan: Acute on chronic Hb on presentation 9.2, dropped to 6.8 on 08/28. Patient at home on ASA, Eliquis, brilinta Need o continue ASA/Brilinta because recent stent. Placed NPO Continue IV PPI BID s/p 2 units PRBC 08/28 Hemodynamically stable EGD 08/29 done today Colonoscopy 08/29 today (2) GIB (gastrointestinal bleeding) Current Visit: Yes Status: Suspected Assessment and Plan: Plan as above. (3) Paroxysmal a-fib Current Visit: Yes Status: Chronic Assessment and Plan: Currently in normal sinus rhythm Continue BB Hold Eliquis (4) Diabetes mellitus Current Visit: Yes Status: Chronic Assessment and Plan: On Glipizide and metformin at home at hold, FS ACHS Low-dose sliding scale coverage Continue levemir (5) Hypertension Current Visit: Yes Status: Chronic Assessment and Plan: continue home meds, blood pressure is soft, she needs BB for HR control Continue to hod Lisinopril and HCTZ-Triamterene at this time (6) Unstable angina pectoris Current Visit: Yes Status: Acute Assessment and Plan: Old records from May 2018 reviewed. Recent history of STEMI status post PCI in May 2018 Presented with recurrent chest pain that is similar to her prior presentation Peak trop 22, EKG shows some T-wave inversions in lateral leads s/p LHC 08/24 with PCI placement ECHO noted, EF preserved Patient chest pain free Continue ASA, brilinta, BB LIAN inhibitor held for now due to renal function. Patient with GIB, cardiology will be reconsulted depending of endoscopy findings (7) Thrombocytopenia Current Visit: Yes Status: Acute Assessment and Plan: PLT stable now PLT count 08/26 initially 123, has since improved. Today is 157 Continue to monitor CBC (8) DENNIS (acute kidney injury) Current Visit: Yes Status: Acute Assessment and Plan: May be related to acute anemia Continue to hold nephrotoxic medications (9) DVT prophylaxis Current Visit: Yes Status: Acute Assessment and Plan: SCDs - Time Spent with Patient Total time spent is greater than 50% in coordination of care (as documented) at patient's floor/unit and/or counseling patient: Internal Medicine: Result - Labs CBC & Chem 7: 08/29/18 14:11 08/29/18 03:26 Labs: Short CBC 08/28/18 08/29/18 Range/Units 21:54 03:26 WBC 7.6 7.2 (4.3-11.1) K/mcL Hgb 10.1 L D 9.4 L (11.5-15.4) g/dL Hct 30.8 L 28.6 L (35.3-44.9) % Plt Count 169 157 (140-400) K/mcL Neutrophils # 5.7 5.1 (1.6-8.9) K/mcL BMP 08/29/18 03:26 Sodium 132 L Potassium 4.3 Chloride 100 Carbon Dioxide 24 BUN 26 H Creatinine 1.35 H Glucose 154 H Calcium 8.8 Consult Discharge Plan - Plan Referrals: Marcio Boyer MD [Partnered Physician] - (sent a web request the office should call patient at home with appointment date and time) Carlos Enrique Sanchez Jr, MD [Primary Care Provider] - 09/01/18 2:30 pm (Appointment will be with Flower Marrufo..If you are unable to make it to the appointment please call and reschedule the appointment. Thank You) (1) Anemia Qualifiers: Anemia type: iron deficiency Iron deficiency anemia type: chronic blood loss Qualified Code(s): D50.0 - Iron deficiency anemia secondary to blood loss ( chronic) (2) GIB (gastrointestinal bleeding) Qualifiers: GI bleed type/associated pathology: unspecified gastrointestinal hemorrhage type Qualified Code(s): K92.2 - Gastrointestinal hemorrhage, unspecified (4) Diabetes mellitus Qualifiers: Diabetes mellitus type: type 2 Diabetes mellitus sole layer insulin use: unspecified sole layer insulin use status Diabetes mellitus complication status : without complication Qualified Code(s): E11.9 - Type 2 diabetes mellitus without complications (5) Hypertension Qualifiers: Hypertension type: essential hypertension Qualified Code(s): I10 - Essential (primary) hypertension
--- NOTE | 2018-08-29 08:34 | Anesthesia Evaluation Post Op ---
Date of Encounter: 08/29/18 Time of Encounter: 08:35 - Vital Signs Vital Signs: 96/76 88 16 - Lungs Lungs: Clear Ascult./Percussion - Airway Airway: Non-obstructed - Cardiovascular Regular Rate - Mental Status Mental Status: Sedated (responding) - Pain Pain Scale: 1 Pain Scale used: Numeric (1 - 10) - Nausea Vomiting Nausea Vomiting: Not Present - Hydration Hydration: NPO Notes: 08/29/18 08:30 fully awake, VSS, no anesthetic complications
[2018-08-29] MEDS: Insulin LISPRO 300 UNITS/3 ML VIAL SQ SCH ×4 (09:49→20:42)
[2018-08-29] MEDS: FluocinoNIDE 0.05% CRM 15 GM TUBE TP SCH ×3 (10:02→22:35)
[2018-08-29] MEDS: Aspirin Enteric Coated 81 MG Tablet PO SCH (15:02)
[2018-08-29] MEDS: Folic Acid 1 MG TABLET PO SCH (15:02)
[2018-08-29] MEDS: *HR* Ticagrelor 90 MG TABLET PO SCH ×2 (15:03→20:34)
[2018-08-29] MEDS ORDERED: Aminoglycoside Consult 1 EACH MC ONE (17:40)
[2018-08-29] MEDS: Insulin DETEMIR 100 UNIT/ML X5UNITS SQ SCH (20:42)
[2018-08-30] MEDS: *HR* OxyCODONE Immed Rel 5 MG TABLET PO PRN ×2 (00:40→08:21)
[2018-08-30] MEDS: Piperacillin/Tazobactam 3.375 GM in 0.9 % Sodium Chloride Mini Bag 100 ML IVPB SCH ×3 (00:41→16:05)
[2018-08-30 03:52] LABS: Adenovirus Not Detected (Not Detect); Bordetella Pertussis Not Detected (Not Detect); Chlamydophila pneumoniae Not Detected (Not Detect); Coronavirus 229E Not Detected (Not Detect); Coronavirus HKU1 Not Detected (Not Detect); Coronavirus NL63 Not Detected (Not Detect); Coronavirus OC43 Not Detected (Not Detect); Human Metapneumovirus Not Detected (Not Detect); Human Rhinovirus/Enterovirus Not Detected (Not Detect); Influenza A Subtype 2009 H1 Not Detected (Not Detect); Influenza A Untypeable Not Detected (Not Detect); Influenza B Not Detected (Not Detect); Mycoplasma pneumoniae Not Detected (Not Detect); Parainfluenza Virus 1 Not Detected (Not Detect); Parainfluenza Virus 2 Not Detected (Not Detect); Parainfluenza Virus 3 Not Detected (Not Detect); Parainfluenza Virus 4 Not Detected (Not Detect); Respiratory Syncytial Virus Not Detected (Not Detect)
[2018-08-30 04:57] LABS: Basophils % 0.3 %; Eosinophils # 0.4 K/mcL (0.0-0.6); Eosinophils % 5.9 %; Hematocrit 27.5 % (35.3-44.9); Hemoglobin 8.9 g/dL (11.5-15.4); Immature Granulocytes % 0.3 % (0-4); Lymphocytes # 1.1 K/mcL (0.6-4.6); Lymphocytes % 17.3 %; Mean Corpuscular HGB Conc 32.4 g/dL (31.6-35.5); Mean Corpuscular Hemoglobin 27.6 pg (28.0-33.3); Mean Corpuscular Volume 85.4 fL (83.0-100.0); Mean Platelet Volume 11.4 fL (9.4-12.4); Monocytes # 0.5 K/mcL (0.0-1.3); Monocytes % 8.4 %; Neutrophils # 4.1 K/mcL (1.6-8.9); Platelet Count 158 K/mcL (140-400); Red Blood Count 3.22 M/mcL (3.82-4.97); Red Cell Distribution Width 14.7 % (11.5-14.5); Segmented Neutrophils % 67.8 %
[2018-08-30 05:10] LABS: Calcium 8.5 mg/dL (8.6-10.3); Potassium 3.9 mEq/L (3.5-5.1)
[2018-08-30] MEDS: Pantoprazole 40 MG VIAL IVP SCH (06:46)
[2018-08-30] MEDS: Insulin LISPRO 300 UNITS/3 ML VIAL SQ SCH ×3 (08:09→16:05)
[2018-08-30] MEDS: Metoprolol XL (24 HR) Succ 25 MG TAB.ER.24H PO SCH (08:10)
[2018-08-30] MEDS: Folic Acid 1 MG TABLET PO SCH (08:10)
[2018-08-30] MEDS: Aspirin Enteric Coated 81 MG Tablet PO SCH (08:10)
[2018-08-30] MEDS: *HR* Ticagrelor 90 MG TABLET PO SCH (08:10)
[2018-08-30] MEDS: FluocinoNIDE 0.05% CRM 15 GM TUBE TP SCH ×2 (08:26→16:05)
[2018-08-30] MEDS ORDERED: Levofloxacin 750 MG/150 ML 750 MG/150 ML BAG IVPB SCH (09:00)
--- NOTE | 2018-08-30 09:03 | Internal Med Progress Note ---
Hospitalist Progress Note - Encounter Date of Encounter: 08/30/18 Time of Encounter: 08:58 - Subjective Interval History: Patient was almost ready for discharge yesterday but noted that she had shortness of breath that has gradually worsening during hospital stay. A chest x-ray yesterday showed developing pneumonia. MRSA screening negative, she was started on Zosyn. Today she states she still had a little shortness of breath that she has only gotten 4 hours of sleep because of this. She also notes she is scared for discharge because she is so weak, she is scared she might return to hospital. She denies chest pain, fevers/chills, n/v, melena, hematochezia. - Exam Vitals: Temp Pulse Resp BP Pulse Ox 98.3 F 77 15 124/71 97 08/30/18 07:50 08/30/18 07:50 08/30/18 07:50 08/30/18 07:50 08/30/18 07:50 Exam: General: Alert and oriented, not in acute distress. HEENT:EOM, pupils equal, round and reactive. Cardiovascular:Normal S1 & S2, No JVD. Lungs: CTAB Abdomen:Soft, non-tender, no rigidity. Extremities:No deformity or swelling Neurological:Normal cognition and motor skills. Non-focal Skin:Normal color, no rash, no lesions. NO bruises Pulses:Carotid and radial pulses normal +2. - Assessment and Plan (1) Hospital-acquired pneumonia Current Visit: Yes Status: Acute Assessment and Plan: Patient has been having progressive shortness of breath which was of major concern to patient. Chest x-ray yesterday showed developing pneumonia. Started on Vanc/Zosyn. Vanc DC'd as MRSA screen negative. Start Levaquin today (renally dosed.) Patient high risk for further morbidity. (2) Anemia Current Visit: Yes Status: Acute Assessment and Plan: Acute on chronic Hb on presentation 9.2, dropped to 6.8 on 08/28. Patient at home on ASA, Eliquis, brilinta Need to continue ASA/Brilinta because recent stent. Discontinue Eliquis. Placed NPO Continue IV PPI BID s/p 2 units PRBC 08/28 Hemodynamically stable EGD 08/29: gastritis Colonoscopy 08/29 : non-bleeding diverticula, 2 non-bleeding polyps, 1 non- bleeding polyp. Disposition: - Patient having worsening shortness of breath, likely pneumonia as seen on chest x-ray. Continue Zosyn (discontinued Vancomycin as MRSA scre-n negative.) - Weakness: PT/OT. She ambulates but need to evaluate if she is safe to go home. - Acute blood loss anemia. Appears to be stable but hemoglobin 10.1 yesterday today 8.9. Recheck in afternoon. Give IV iron today and supp iron on discharge. Discharge pending H&H, PT/OT recs. (3) GIB (gastrointestinal bleeding) Current Visit: Yes Status: Suspected Assessment and Plan: Plan as above. (4) Paroxysmal a-fib Current Visit: Yes Status: Chronic Assessment and Plan: Currently in normal sinus rhythm Continue BB Discontinued Eliquis because of GIB (5) Diabetes mellitus Current Visit: Yes Status: Chronic Assessment and Plan: On Glipizide and metformin at home at hold, FS ACHS Low-dose sliding scale coverage Continue levemir (6) Hypertension Current Visit: Yes Status: Chronic Assessment and Plan: continue home meds, blood pressure is soft, she needs BB for HR control Continue to hod Lisinopril and HCTZ-Triamterene at this time (7) Unstable angina pectoris Current Visit: Yes Status: Acute Assessment and Plan: Old records from May 2018 reviewed. Recent history of STEMI status post PCI in May 2018 Presented with recurrent chest pain that is similar to her prior presentation Peak trop 22, EKG shows some T-wave inversions in lateral leads s/p LHC 10/7 with PCI placement ECHO noted, EF preserved Patient chest pain free Continue ASA, brilinta, BB LIAN inhibitor held for now due to renal function. Patient with GIB, cardiology will be reconsulted depending of endoscopy findings (8) Thrombocytopenia Current Visit: Yes Status: Acute Assessment and Plan: PLT stable now PLT count 10/9 initially 123, has since improved. Today is 157 Continue to monitor CBC (9) DENNIS (acute kidney injury) Current Visit: Yes Status: Acute Assessment and Plan: May be related to acute anemia Continue to hold nephrotoxic medications Improving. Renally dose Levaquin. (10) DVT prophylaxis Current Visit: Yes Status: Acute Assessment and Plan: SCDs - Time Spent with Patient Total time spent is greater than 50% in coordination of care (as documented) at patient's floor/unit and/or counseling patient: Internal Medicine: Result - Labs CBC & Chem 7: 08/30/18 04:40 08/30/18 04:40 Labs: Short CBC 08/29/18 08/30/18 Range/Units 14:11 04:40 WBC 6.1 (4.3-11.1) K/mcL Hgb 10.0 L 8.9 L (11.5-15.4) g/dL Hct 30.0 L 27.5 L (35.3-44.9) % Plt Count 158 (140-400) K/mcL Neutrophils # 4.1 (1.6-8.9) K/mcL BMP 08/30/18 04:40 Sodium 132 L Potassium 3.9 Chloride 102 Carbon Dioxide 25 BUN 24 H Creatinine 1.22 H Glucose 276 H Calcium 8.5 L - Impressions Impressions Chest X-Ray 08/29/18 17:04 IMPRESSION: Increased subtle bilateral nodular opacities given the short time frame change likely are infectious. D/ / 08/29/2018 17:25:59 Mario Evangelista MD / [facility] Interpreting Provider: Mario Evangelista MD Consult Discharge Plan - Plan Referrals: Marcio Boyer MD [Partnered Physician] - (sent a web request the office should call patient at home with appointment date and time) Carlos Enrique Sanchez Jr, MD [Primary Care Provider] - 09/01/18 2:30 pm (Appointment will be with Flower Marrufo..If you are unable to make it to the appointment please call and reschedule the appointment. Thank You) (2) Anemia Qualifiers: Anemia type: iron deficiency Iron deficiency anemia type: chronic blood loss Qualified Code(s): D50.0 - Iron deficiency anemia secondary to blood loss ( chronic) (3) GIB (gastrointestinal bleeding) Qualifiers: GI bleed type/associated pathology: unspecified gastrointestinal hemorrhage type Qualified Code(s): K92.2 - Gastrointestinal hemorrhage, unspecified (5) Diabetes mellitus Qualifiers: Diabetes mellitus type: type 2 Diabetes mellitus roasterman insulin use: unspecified detention insulin use status Diabetes mellitus complication status : without complication Qualified Code(s): E11.9 - Type 2 diabetes mellitus without complications (6) Hypertension Qualifiers: Hypertension type: essential hypertension Qualified Code(s): I10 - Essential (primary) hypertension
[2018-08-30] MEDS ORDERED: Iron Sucrose Complex 200 MG in 0.9 % Sodium Chloride 100 ML IVPB SCH (09:15)
[2018-08-30 11:15] VITALS: BP 120/62
[2018-08-30 12:46] LABS: Hematocrit 28.7 % (35.3-44.9); Hemoglobin 9.2 g/dL (11.5-15.4)
--- NOTE | 2018-08-30 15:33 | Discharge Summary ---
- NOTES TO OUTPATIENT PROVIDER Notes to Outpatient Provider: - Follow-up with Cardiology for NSTEMI. - Follow- up CBC (acute anemia) and BMP (increaed creatinine up to 1.40) in 3-5 days. - Recheck iron studies in 4-6 weeks. - Repeat CXR in 4 weeks to monitor resolution of hospital acquired pneumonia. Renally dosed Levaquin. - Follow-up with GI for suspected GI bleed. Eliquis was held during admission after acute anemia and not continued on discharge. - Hold metformin because of renal function. Recheck and re eval if can be resumed or not. - Levaquin dosed at 750 mg Q48H bc creatinine clearance is 46. Re eval renal function and dose Levaquin accordingly. - Triamterene/HCTZ held bc BP was lower to normal limits and sodium borderline low. Orders not resulted at time of discharge: Pending orders 08/29/18 20:05 Culture,Sputum with Gram Stain [RM] Routine 08/30/18 05:10 Mycoplasma pneumoniae IgG IgM Routine 08/31/18 04:00 BMP [Basic Metabolic Panel] AM 0400 Complete Blood Count [HEME] AM 0400 09/01/18 04:00 BMP [Basic Metabolic Panel] AM 0400 Complete Blood Count [HEME] AM 0400 Date of Encounter: 08/30/18 Time of Encounter: 15:30 - Discharge Diagnosis (1) NSTEMI (non-ST elevated myocardial infarction) Priority: Primary Status: Acute (2) Hospital-acquired pneumonia Priority: Secondary Status: Acute (3) Anemia Priority: Secondary Status: Acute Qualifiers: Anemia type: iron deficiency Iron deficiency anemia type: chronic blood loss Qualified Code(s): D50.0 - Iron deficiency anemia secondary to blood loss (chronic) (4) GIB (gastrointestinal bleeding) Priority: Secondary Status: Suspected Qualifiers: GI bleed type/associated pathology: unspecified gastrointestinal hemorrhage type Qualified Code(s): K92.2 - Gastrointestinal hemorrhage, unspecified (5) Paroxysmal a-fib Priority: Secondary Status: Chronic (6) Diabetes mellitus Priority: Secondary Status: Chronic Qualifiers: Diabetes mellitus type: type 2 Diabetes mellitus long term care pharmacist insulin use: unspecified chcf insulin use status Diabetes mellitus complication status : without complication Qualified Code(s): E11.9 - Type 2 diabetes mellitus without complications (7) Hypertension Priority: Secondary Status: Chronic Qualifiers: Hypertension type: essential hypertension Qualified Code(s): I10 - Essential (primary) hypertension (8) Thrombocytopenia Priority: Secondary Status: Acute (9) DENNIS (acute kidney injury) Priority: Secondary Status: Acute (10) DVT prophylaxis Priority: Secondary Status: Acute Hospital course: Ms. Espinosa is a 73 year old female with history of recent STEMI status post VAIBHAV to first diagonal and PTCA to second diagonal in May 2018, DM, Afib, presented to the ED with 30 minute history of chest pain. Substernal/left sided, pressure -like, radiates to L side of the neck, associated with nausea but no vomiting. Happened while at rest after waking up. Tried sublingual nitroglycerin 3 times without relief. States that she was taken off aspirin about 2 weeks prior to admission due to bleeding hemorrhoids but is compliant to plavix and Eliquis. Her administered one baby aspirin followed by 3 more tabs by EMS and was brought to the ED. In the ED, she was afebrile and hemodynamically stable. EKG showed T-wave inversions in lateral leads. Chest x-ray did not show any significant cardiopulmonary findings. She was started on nitro drip and admitted for further management. The initial troponin on admission was <0.03. Cardiology evaluated patient. Trended troponin showed an elevation to 0.52, followed by 22.17. She underwent left heart cath on 08/24/18, she had PTCA in proximal PDA. Home Plavix was discontinued and she was started on Brilinta with aspirin. Eliquis was continued for paroxsymal afib. Patient had hemoglobin on admission that was 9.2 but trended down to 7.4. An FOBT was positive. Hemoglobin then dropped to 6.8. She required 2 units PRBC and Eliquis was held. Due to very high risk of stent rethrombosis, ASA/Brilinta were continued. GI was consulted. She had EGD on 08/28/18 that showed benign esophageal stenosis, gastritis, and no acute bleed. A colonoscopy on 08/29/18 showed diverticulosis, non-bleeding polyps. No active bleed was found. Anemia was stable after monitoring H&H and vital signs and remaining off of Eliquis. She had episodes of SOB and a repeat chest x-ray showed pneumonia. She had started on emperic antibiotic therapy. MRSA screen was negative and she was de escalated to Levaquin. Symptoms of SOB improved. She was afebrile without any leukocytosis. PT/OT evaluated patient and she has no skilled needs on discharge. Patient was able to ambulate in hallways and stated she feels she is ready for home. - Time Spent with Patient Total time spent providing and/or coordinating discharge services: - Discharge Medications Prescriptions: Aspirin Enteric Coated [Aspirin EC] 81 mg PO DAILY #30 tablet. Docusate [Colace] 200 mg PO DAILY #60 capsule Ticagrelor [Brilinta] 90 mg PO BID #60 tablet Home Medications: Cyanocobalamin (B-12) [Vitamin B12] 1,000 mcg IM QMONTH 06/02/18 [History] Famotidine [Pepcid] 40 mg PO HS PRN 06/02/18 [History] FluocinoNIDE 0.05% CRM [Lidex] 1 appl TP TID PRN 06/02/18 [History] Folic Acid 1 mg PO DAILY 06/02/18 [History] GlipiZIDE [Glipizide ER] 10 mg PO DAILY@1700 06/02/18 [History] Levothyroxine Sodium 150 mcg PO DAILY 06/02/18 [History] Oxycodone HCl 5 mg PO Q6H PRN 06/02/18 [History] diazePAM [Valium] 5 mg PO BID PRN 06/02/18 [History] Nitroglycerin 0.4 mg SL Q5MIN PRN #15 tab.subl 06/06/18 [Rx] Lisinopril 2.5 mg PO DAILY 08/24/18 [History] Metoprolol Succinate 25 mg PO BID 08/25/18 [History] Aspirin Enteric Coated [Aspirin EC] 81 mg PO DAILY #30 tablet. 08/30/18 [Rx] Docusate [Colace] 200 mg PO DAILY #60 capsule 08/30/18 [Rx] Ferrous Sulfate 325 mg PO DAILY #30 tablet 08/30/18 [Rx] Levofloxacin [Levaquin] 750 mg PO Q48H #3 tablet 08/30/18 [Rx] Omeprazole 20 mg PO BID #60 tablet. 08/30/18 [Rx] Rosuvastatin Calcium [Crestor] 10 mg PO HS #30 tablet 08/30/18 [Rx] Rosuvastatin [Crestor] 10 mg PO HS #0 tablet 08/30/18 [Rx] Ticagrelor [Brilinta] 90 mg PO BID #60 tablet 08/30/18 [Rx] Allergies/Adverse Reactions: 3 Allergy/AdvReac Type Severity Reaction Status Date / Time amitriptyline AdvReac Seizure Verified 08/25/18 09:09 Amoxicillin [From Amoxil] AdvReac Nausea Verified 08/25/18 09:09 gluten AdvReac Abdominal Verified 08/25/18 09:09 Pain Date of admission: 08/26/18 09:01 Primary care physician: Carlos Enrique Sanchez Jr, MD Consults: 08/28/18 08:15 Consult to Gastroenterology [CONS] Stat Consulting Provider: Gastroenterology [facility]icia Reason for Consult: GIB Call Completed: Yes 08/30/18 08:42 Consult to Physical Therapy [CONS] Routine Comment: Evaluate, develop and implement POC Reason for Consult: Weakness and home planning, disposition needs. Does patient have active BEDREST order?: No Is patient medically & hemodynamically stable?: Yes Patient assessed for mobility or mobilized this visit?: Yes 08/30/18 09:06 Consult to Occupational Therapy [CONS] Routine Comment: Evaluate, develop and implement POC Reason for Consult: weakness, dispo planning. Does patient have active BEDREST order?: No Is patient medically & hemodynamically stable?: Yes Discharging clinician: Albertina Guerrero - Constitutional Vitals: Temp Pulse Resp BP Pulse Ox 98.2 F 82 15 120/62 96 08/30/18 11:00 08/30/18 11:00 08/30/18 11:00 08/30/18 11:00 08/30/18 11:00 Exam: General: Alert and oriented, not in acute distress. HEENT:EOM, pupils equal, round and reactive. Cardiovascular:Normal S1 & S2, No JVD. Lungs: CTAB Abdomen:Soft, non-tender, no rigidity. Extremities:No deformity or swelling Neurological:Normal cognition and motor skills. Non-focal Skin:Normal color, no rash, no lesions. NO bruises Pulses:Carotid and radial pulses normal +2. - Patient Status Disposition: Home, Self-Care Condition: Fair Functional capacity at discharge: independent ambulation Overall status at discharge: patient is progressing back to baseline - Discharge Instructions Follow Up With: Marcio Boyer MD [Partnered Physician] - (sent a web request the office should call patient at home with appointment date and time) Carlos Enrique Sanchez Jr, MD [Primary Care Provider] - 09/01/18 2:30 pm (Appointment will be with Flower Marrufo..If you are unable to make it to the appointment please call and reschedule the appointment. Thank You) - Diet and Activity Activity: increase activity as tolerated Diet: advance to your usual diet
[2018-09-02 08:42] LABS: Mycoplasma pneumoniae IgG 1.03 U/L (<=0.09)
== END 2018-08-30 17:41 | disposition home or self-care (01) | DRG 246 ==
LOC: EMEROOARM 08:16 → 2NENU 08:16 → SUATTDRO 10:44 → 2NENU 11:21 → 2NNU 18:52 → SUATTDRO 08-26 09:01 → 2NENU 08-26 16:47
PROVIDERS: ADMIT Internal Medicine; ATTEND Student in an Organized Health Care Education/Training Program

== ENCOUNTER 2020-07-05 02:04 | Observation (INO) ==
[2020-07-05] MEDS ORDERED: 0.9 % Sodium Chloride 1,000 ML IV ONE (02:31)
[2020-07-05] MEDS ORDERED: DilTIAZem 50 MG/50 ML IV.SOLN IVC SCH (02:45)
[2020-07-05 03:27] LABS: Basophils % 0.4 %; Eosinophils # 0.2 K/mcL (0.0-0.6); Eosinophils % 2.7 %; Hematocrit 34.5 % (35.3-44.9); Hemoglobin 10.8 g/dL (11.5-15.4); Immature Granulocytes % 0.1 % (0-4); Lymphocytes # 1.3 K/mcL (0.6-4.6); Lymphocytes % 17.4 %; Mean Corpuscular HGB Conc 31.3 g/dL (31.6-35.5); Mean Corpuscular Hemoglobin 28.8 pg (28.0-33.3); Monocytes # 0.4 K/mcL (0.0-1.3); Monocytes % 5.8 %; Neutrophils # 5.5 K/mcL (1.6-8.9); Platelet Count 173 K/mcL (140-400); Red Blood Count 3.75 M/mcL (3.82-4.97); Red Cell Distribution Width 13.8 % (11.5-14.5); Segmented Neutrophils % 73.6 %; White Blood Count 7.5 K/mcL (4.3-11.1)
[2020-07-05 03:45] LABS: Alanine Aminotransferase 9 Units/L (7-52); Albumin 3.7 g/dL (3.5-5.7); Albumin/Globulin Ratio 1.3 (1.1-2.2); Alkaline Phosphatase 64 Units/L (34-104); Aspartate Amino Transferase 10 Units/L (13-39); BUN/Creatinine Ratio 19 (6-26); Bilirubin,Total 0.3 mg/dL (0.3-1.0); Blood Urea Nitrogen 19 mg/dL (8-23); Calcium 9.5 mg/dL (8.6-10.3); Carbon Dioxide 22 mEq/L (23-29); Chloride 105 mEq/L (98-107); Globulin 2.9 g/dL (2.4-3.5); Glucose 166 mg/dL (70-105); Magnesium 1.7 mg/dL (1.6-2.6); Osmolality,Calculated 288 (280-300); Phosphorous 3.2 mg/dL (2.7-4.5); Potassium 3.9 mEq/L (3.5-5.1); Sodium 136 mEq/L (136-145); Total Protein 6.6 g/dL (6.4-8.9); eGFR For African Americans > 60 (> 60); eGFR For Non-African Americans 54 (> 60)
[2020-07-05 03:46] LABS: Troponin I < 0.03 ng/mL (< 0.04)
[2020-07-05 04:00] LABS: Thyroid Stimulating Hormone < 0.010 mcIU/mL (0.340-5.600)
[2020-07-05] MEDS ORDERED: Isovue-370 500 ML BOTTLE IVP ONE (04:00)
[2020-07-05] MEDS ORDERED: Azithromycin 500 MG in 0.9 % Sodium Chloride 250 ML IVPB ONE (04:52)
[2020-07-05] MEDS ORDERED: cefTRIAXone 1,000 MG in Water for inj. (sterile) 10 ML IVP ONE (04:52)
[2020-07-05 05:04] LABS: Triiodothyronine (T3) Free 2.37 pg/mL (2.50-3.90)
[2020-07-05] MEDS ORDERED: *HR* Heparin 5,000 UNIT/ML VIAL IVP PRN ×2 (05:07)
[2020-07-05] MEDS ORDERED: *HR* Heparin 5,000 UNIT/ML VIAL IVP ONE (05:07)
[2020-07-05] MEDS ORDERED: Heparin 25,000UNIT/250ML 1/2NS 25,000 UNIT/250 ML IV.SOLN IVC SCH (05:15)
[2020-07-05] MEDS ORDERED: Naloxone 0.4 MG/ML INJ IVP PRN (05:43)
[2020-07-05] MEDS ORDERED: 0.9 % Sodium Chloride 1,000 ML IVC SCH (05:45)
[2020-07-05] MEDS ORDERED: Dextrose Gel 15 GM/37.5 ML TUBE PO PRN ×4 (06:01→09:25)
[2020-07-05] MEDS ORDERED: D5% in Water 1,000 ML IVC PRN ×2 (06:01→09:25)
[2020-07-05] MEDS ORDERED: *HR* Dextrose 50 % in Water (Vial) 50 ML VIAL IVP PRN ×2 (06:01→09:25)
[2020-07-05 06:37] LABS: Adenovirus Not Detected (Not Detect); Bordetella Pertussis Not Detected (Not Detect); Chlamydophila pneumoniae Not Detected (Not Detect); Coronavirus 229E Not Detected (Not Detect); Coronavirus HKU1 Not Detected (Not Detect); Coronavirus NL63 Not Detected (Not Detect); Coronavirus OC43 Not Detected (Not Detect); Human Metapneumovirus Not Detected (Not Detect); Human Rhinovirus/Enterovirus Not Detected (Not Detect); Influenza A Subtype 2009 H1 Not Detected (Not Detect); Influenza B Not Detected (Not Detect); Mycoplasma pneumoniae Not Detected (Not Detect); Parainfluenza Virus 1 Not Detected (Not Detect); Parainfluenza Virus 2 Not Detected (Not Detect); Parainfluenza Virus 3 Not Detected (Not Detect); Parainfluenza Virus 4 Not Detected (Not Detect); Respiratory Syncytial Virus Not Detected (Not Detect)
[2020-07-05] MEDS ORDERED: Furosemide 40 MG/4 ML VIAL IVP ONE (07:16)
[2020-07-05] MEDS ORDERED: Perflutren Lipid Microsphere 1.3 ML in 0.9 % Sodium Chloride 8.7 ML IVP PRN (07:18)
[2020-07-05] MEDS ORDERED: Insulin LISPRO 300 UNITS/3 ML VIAL SQ SCH ×2 (07:30→21:00)
[2020-07-05] MEDS ORDERED: Cyanocobalamin (B-12) 1,000 MCG/ML VIAL IM SCH (10:15)
[2020-07-05] MEDS: Metoprolol XL (24 HR) Succ 50 MG TAB.ER.24H PO SCH (10:54)
[2020-07-05] MEDS: lisinopriL 5 MG TABLET PO SCH (10:55)
[2020-07-05] MEDS: Folic Acid 1 MG TABLET PO SCH (10:55)
[2020-07-05] MEDS: Gabapentin 100 MG CAPSULE PO SCH ×3 (12:15→20:22)
[2020-07-05] MEDS: Insulin LISPRO 300 UNITS/3 ML VIAL SQ SCH ×2 (12:16→16:13)
[2020-07-05] MEDS: Apixaban 5 MG TABLET PO SCH (20:22)
[2020-07-06 01:36] LABS: Basophils % 0.6 %; Eosinophils # 0.2 K/mcL (0.0-0.6); Eosinophils % 4.3 %; Hematocrit 29.5 % (35.3-44.9); Hemoglobin 9.4 g/dL (11.5-15.4); Immature Granulocytes % 0.2 % (0-4); Lymphocytes # 1.5 K/mcL (0.6-4.6); Mean Corpuscular HGB Conc 31.9 g/dL (31.6-35.5); Mean Corpuscular Hemoglobin 29.1 pg (28.0-33.3); Mean Corpuscular Volume 91.3 fL (83.0-100.0); Mean Platelet Volume 10.9 fL (9.4-12.4); Monocytes # 0.4 K/mcL (0.0-1.3); Monocytes % 8.8 %; Neutrophils # 2.7 K/mcL (1.6-8.9); Platelet Count 143 K/mcL (140-400); Red Blood Count 3.23 M/mcL (3.82-4.97); Red Cell Distribution Width 13.8 % (11.5-14.5); Segmented Neutrophils % 56.1 %; White Blood Count 4.9 K/mcL (4.3-11.1)
[2020-07-06 01:56] LABS: BUN/Creatinine Ratio 29 (6-26); Blood Urea Nitrogen 26 mg/dL (8-23); Calcium 8.8 mg/dL (8.6-10.3); Carbon Dioxide 24 mEq/L (23-29); Chloride 104 mEq/L (98-107); Glucose 148 mg/dL (70-105); Osmolality,Calculated 290 (280-300); Potassium 4.1 mEq/L (3.5-5.1); Sodium 136 mEq/L (136-145); eGFR For African Americans > 60 (> 60); eGFR For Non-African Americans > 60 (> 60)
[2020-07-06] MEDS ORDERED: Azithromycin 500 MG in 0.9 % Sodium Chloride 250 ML IVPB SCH (06:00)
[2020-07-06] MEDS: lisinopriL 5 MG TABLET PO SCH (08:54)
[2020-07-06] MEDS: Apixaban 5 MG TABLET PO SCH (08:54)
[2020-07-06] MEDS: Folic Acid 1 MG TABLET PO SCH (08:54)
[2020-07-06] MEDS: Metoprolol XL (24 HR) Succ 50 MG TAB.ER.24H PO SCH (08:54)
[2020-07-06] MEDS: Gabapentin 100 MG CAPSULE PO SCH ×2 (08:54→14:39)
[2020-07-06] MEDS: Insulin LISPRO 300 UNITS/3 ML VIAL SQ SCH ×2 (08:55→12:14)
[2020-07-06] MEDS ORDERED: Azithromycin 250 MG TABLET PO SCH (09:00)
[2020-07-06] MEDS ORDERED: cefTRIAXone 1,000 MG in 0.9 % Sodium Chloride Mini Bag 100 ML IVPB SCH (09:00)
[2020-07-06 11:32] VITALS: BP 141/75
== END 2020-07-06 15:55 | disposition home or self-care (01) ==
LOC: 2ANU 02:04 → EMEROOARM 02:04 → 2ANU 08:01
PROVIDERS: ADMIT Student in an Organized Health Care Education/Training Program; ATTEND Student in an Organized Health Care Education/Training Program

== ENCOUNTER 2021-06-25 10:59 | Inpatient (IN) ==
[2021-06-25 11:29] LABS: Basophils % 0.2 %; Eosinophils # 0.1 K/mcL (0.0-0.6); Eosinophils % 0.8 %; Hematocrit 35.5 % (35.3-44.9); Hemoglobin 11.4 g/dL (11.5-15.4); Immature Granulocytes % 0.2 % (0-4); Lymphocytes # 0.4 K/mcL (0.6-4.6); Lymphocytes % 4.1 %; Mean Corpuscular HGB Conc 32.1 g/dL (31.6-35.5); Mean Corpuscular Hemoglobin 30.1 pg (28.0-33.3); Mean Corpuscular Volume 93.7 fL (83.0-100.0); Mean Platelet Volume 10.7 fL (9.4-12.4); Monocytes # 0.5 K/mcL (0.0-1.3); Monocytes % 4.6 %; Neutrophils # 9.5 K/mcL (1.6-8.9); Platelet Count 145 K/mcL (140-400); Red Blood Count 3.79 M/mcL (3.82-4.97); Red Cell Distribution Width 14.4 % (11.5-14.5); Segmented Neutrophils % 90.1 %; White Blood Count 10.6 K/mcL (4.3-11.1)
[2021-06-25 11:52] LABS: Albumin 3.9 g/dL (3.5-5.7); Albumin/Globulin Ratio 1.2 (1.1-2.2); Bilirubin,Direct 0.2 mg/dL (0.0-0.2); Bilirubin,Indirect 0.5 mg/dL (0.0-1.0); Bilirubin,Total 0.7 mg/dL (0.3-1.0); Calcium 8.7 mg/dL (8.6-10.3); Globulin 3.3 g/dL (2.4-3.5); Potassium 4.6 mEq/L (3.5-5.1); Total Protein 7.2 g/dL (6.4-8.9); Troponin I 0.03 ng/mL (< 0.04)
[2021-06-25] MEDS ORDERED: Ipratropium/Albuterol Neb 3 ML IH ONE (12:05)
[2021-06-25 12:16] LABS: Adenovirus Not Detected (Not Detect); Coronavirus 229E Not Detected (Not Detect); Coronavirus HKU1 Not Detected (Not Detect); Coronavirus NL63 Not Detected (Not Detect); Coronavirus OC43 Not Detected (Not Detect); Human Metapneumovirus Not Detected (Not Detect); SARS-CoV-2 Not Detected (Not Detect)
[2021-06-25 12:17] LABS: Bordetella Pertussis Not Detected (Not Detect); Chlamydophila pneumoniae Not Detected (Not Detect); Human Rhinovirus/Enterovirus DETECTED (Not Detect); Influenza A Subtype 2009 H1 Not Detected (Not Detect); Influenza B Not Detected (Not Detect); Mycoplasma pneumoniae Not Detected (Not Detect); Parainfluenza Virus 1 Not Detected (Not Detect); Parainfluenza Virus 2 Not Detected (Not Detect); Parainfluenza Virus 3 Not Detected (Not Detect); Parainfluenza Virus 4 Not Detected (Not Detect); Respiratory Syncytial Virus Not Detected (Not Detect)
[2021-06-25 12:55] LABS: Bilirubin,Urine Negative (Negative); Blood,Urine Negative (Negative); Clarity,Urine Clear (Clear); Color,Urine Colorless (Yellow); Glucose,Urine (UA) Normal (Normal); Ketones,Urine Negative (Negative); Leukocyte Esterase,Urine Negative (Negative); Nitrite,Urine Negative (Negative); Protein,Urine Negative (Neg-Trace); Urobilinogen,Urine Normal (Normal)
[2021-06-25] MEDS ORDERED: cefTRIAXone 1,000 MG in Water for inj. (sterile) 10 ML IVP ONE (12:55)
[2021-06-25] MEDS ORDERED: Azithromycin 250 MG TABLET PO ONE (12:56)
[2021-06-25] MEDS ORDERED: Ondansetron 4 MG/2 ML VIAL IVP PRN (13:27)
[2021-06-25] MEDS ORDERED: Dextrose Gel 15 GM/37.5 ML TUBE PO PRN ×2 (13:27)
[2021-06-25] MEDS ORDERED: D5% in Water 1,000 ML IVC PRN (13:27)
[2021-06-25] MEDS ORDERED: Naloxone 0.4 MG/ML INJ IVP PRN (13:27)
[2021-06-25] MEDS ORDERED: *HR* Dextrose 50 % in Water (Vial) 50 ML VIAL IVP PRN (13:27)
[2021-06-25] MEDS ORDERED: Ipratropium/Albuterol Neb 3 ML IH PRN (13:29)
[2021-06-25] MEDS: Insulin LISPRO 300 UNITS/3 ML VIAL SUBQ SCH (17:10)
[2021-06-25] MEDS: Acetaminophen 325 MG TABLET PO PRN (18:35)
[2021-06-25] MEDS: Apixaban 5 MG TABLET PO SCH (19:28)
[2021-06-26 07:46] LABS: Basophils % 0.1 %; Eosinophils # 0.2 K/mcL (0.0-0.6); Eosinophils % 2.8 %; Hematocrit 31.5 % (35.3-44.9); Hemoglobin 10.1 g/dL (11.5-15.4); Immature Granulocytes % 0.1 % (0-4); Lymphocytes # 0.7 K/mcL (0.6-4.6); Lymphocytes % 9.4 %; Mean Corpuscular HGB Conc 32.1 g/dL (31.6-35.5); Mean Corpuscular Hemoglobin 30.4 pg (28.0-33.3); Mean Corpuscular Volume 94.9 fL (83.0-100.0); Mean Platelet Volume 10.8 fL (9.4-12.4); Monocytes # 0.3 K/mcL (0.0-1.3); Monocytes % 4.8 %; Neutrophils # 5.8 K/mcL (1.6-8.9); Platelet Count 121 K/mcL (140-400); Red Blood Count 3.32 M/mcL (3.82-4.97); Red Cell Distribution Width 14.6 % (11.5-14.5); Segmented Neutrophils % 82.8 %
[2021-06-26] MEDS: Insulin LISPRO 300 UNITS/3 ML VIAL SUBQ SCH ×3 (07:46→16:25)
[2021-06-26] MEDS: Apixaban 5 MG TABLET PO SCH ×2 (07:46→19:28)
[2021-06-26] MEDS: Acetaminophen 325 MG TABLET PO PRN ×2 (07:48→16:25)
[2021-06-26 08:03] LABS: Calcium 8.8 mg/dL (8.6-10.3); Potassium 4.2 mEq/L (3.5-5.1)
[2021-06-26] MEDS ORDERED: 0.9 % Sodium Chloride 250 ML ONE (10:47)
[2021-06-26] MEDS: cefTRIAXone 1,000 MG in Water for inj. (sterile) 10 ML IVP SCH (11:07)
[2021-06-26] MEDS ORDERED: Azithromycin 500 MG in 0.9 % Sodium Chloride 250 ML IVPB SCH (12:00)
[2021-06-26] MEDS ORDERED: diazePAM 5 MG TABLET PO PRN (15:52)
[2021-06-26] MEDS: Gabapentin 100 MG CAPSULE PO SCH ×2 (16:25→19:28)
[2021-06-26] MEDS: Metoprolol XL (24 HR) Succ 25 MG TAB.ER.24H PO SCH (19:28)
[2021-06-26] MEDS: Famotidine 20 MG TABLET PO PRN (19:30)
[2021-06-26] MEDS ORDERED: Benzonatate 100 MG CAPSULE PO PRN (20:10)
[2021-06-27] MEDS ORDERED: Melatonin 3 MG TABLET PO PRN (05:15)
[2021-06-27 06:28] LABS: Hematocrit 32.7 % (35.3-44.9); Hemoglobin 10.5 g/dL (11.5-15.4); Mean Corpuscular HGB Conc 32.1 g/dL (31.6-35.5); Mean Corpuscular Hemoglobin 29.8 pg (28.0-33.3); Mean Corpuscular Volume 92.9 fL (83.0-100.0); Mean Platelet Volume 11.2 fL (9.4-12.4); Platelet Count 146 K/mcL (140-400); Red Blood Count 3.52 M/mcL (3.82-4.97); Red Cell Distribution Width 14.3 % (11.5-14.5); White Blood Count 6.3 K/mcL (4.3-11.1)
[2021-06-27 06:48] LABS: Calcium 9.2 mg/dL (8.6-10.3); Potassium 4.3 mEq/L (3.5-5.1)
[2021-06-27] MEDS: Gabapentin 100 MG CAPSULE PO SCH ×4 (07:55→19:34)
[2021-06-27] MEDS: Apixaban 5 MG TABLET PO SCH ×2 (07:55→19:34)
[2021-06-27] MEDS: lisinopriL 5 MG TABLET PO SCH (07:55)
[2021-06-27] MEDS: Insulin LISPRO 300 UNITS/3 ML VIAL SUBQ SCH ×3 (07:55→16:43)
[2021-06-27] MEDS: Metoprolol XL (24 HR) Succ 25 MG TAB.ER.24H PO SCH ×2 (07:55→19:34)
[2021-06-27] MEDS: Folic Acid 1 MG TABLET PO SCH (07:55)
[2021-06-27] MEDS: cefTRIAXone 1,000 MG in Water for inj. (sterile) 10 ML IVP SCH (11:50)
[2021-06-27] MEDS: Acetaminophen 325 MG TABLET PO PRN ×2 (11:53→19:34)
[2021-06-27] MEDS: Famotidine 20 MG TABLET PO PRN (19:34)
[2021-06-28 05:40] LABS: Hematocrit 30.7 % (35.3-44.9); Hemoglobin 9.7 g/dL (11.5-15.4); Mean Corpuscular HGB Conc 31.6 g/dL (31.6-35.5); Mean Corpuscular Hemoglobin 29.9 pg (28.0-33.3); Mean Corpuscular Volume 94.8 fL (83.0-100.0); Mean Platelet Volume 10.9 fL (9.4-12.4); Platelet Count 134 K/mcL (140-400); Red Blood Count 3.24 M/mcL (3.82-4.97); Red Cell Distribution Width 14.5 % (11.5-14.5); White Blood Count 5.5 K/mcL (4.3-11.1)
[2021-06-28 06:16] LABS: Calcium 8.6 mg/dL (8.6-10.3); Potassium 4.6 mEq/L (3.5-5.1)
[2021-06-28] MEDS: lisinopriL 5 MG TABLET PO SCH (07:55)
[2021-06-28] MEDS: Gabapentin 100 MG CAPSULE PO SCH ×2 (07:55→14:13)
[2021-06-28] MEDS: Metoprolol XL (24 HR) Succ 25 MG TAB.ER.24H PO SCH (07:55)
[2021-06-28] MEDS: Folic Acid 1 MG TABLET PO SCH (07:55)
[2021-06-28] MEDS: Acetaminophen 325 MG TABLET PO PRN (07:55)
[2021-06-28] MEDS: Apixaban 5 MG TABLET PO SCH (07:55)
[2021-06-28] MEDS: Insulin LISPRO 300 UNITS/3 ML VIAL SUBQ SCH ×2 (07:56→12:04)
[2021-06-28] MEDS ORDERED: cefTRIAXone 1,000 MG in Water for inj. (sterile) 10 ML IVP ONE (11:00)
[2021-06-28 11:31] VITALS: BP 128/84; PULSE 81; TEMP 98.2; O2SAT 91
[2021-07-22] MEDS ORDERED: Cyanocobalamin (B-12) 1,000 MCG/ML VIAL IM SCH (09:00)
== END 2021-06-28 14:42 | disposition home or self-care (01) | DRG 193 ==
LOC: 2ANU 10:59 → EMEROOARM 10:59 → SUATTDRO 13:38 → 2ANU 15:06
PROVIDERS: ADMIT Internal Medicine; ATTEND Family Medicine